=== PATIENT | male | born 1945 | race Caucasian/White ===

== ENCOUNTER 2024-03-02 09:45 | Outpatient (OUT) | payer OTHER, SELFPAY ==
--- NOTE | 2024-03-02 10:00 | CA_ITS ---
Patient Name: ERIC LARA MR#: [id number] : 1945 Exam Date: 03/02/2024 Ordering Doctor: DR CHRISTOPHER SULTANA ECHOCARDIOGRAM REPORT PROCEDURE: CA ECHO DOPPLER COMPLETE INDICATIONS: Pulmonary embolism, PFO COMPARISON: None. DESCRIPTION: COMPLETE ECHOCARDIOGRAM Real-time transthoracic echocardiography with 2D, M-mode, spectral and color flow Doppler performed. QUALITY: Technical quality was good. LEFT VENTRICLE: Normal chamber size. Proximal septal hypertrophy (sigmoid septum). Normal systolic function. LV EF: Normal left ventricular ejection fraction, (>55%). DIASTOLIC: Not adequately assessed due to heart rhythm. ATRIAL SEPTUM: Possible PFO. LEFT ATRIUM: Moderate dilatation. RIGHT ATRIUM: Moderate dilatation. RIGHT VENTRICLE: Normal chamber size. Normal right ventricular systolic function. TRICUSPID VALVE: Normal mobility and thickness. No stenosis with mild regurgitation. No evidence of pulmonary hypertension. RVSP 33 mmHg MITRAL VALVE: Normal mobility and thickness. No evidence of mitral valve stenosis. There is no mitral annular calcification. Mild mitral regurgitation. AORTIC VALVE: Normal trileaflet appearance. No visible sclerosis. Normal leaflet mobility. No evidence of aortic valve stenosis. No aortic regurgitation. AORTIC ROOT: Normal diameter and appearance. Ascending aorta is normal in size. PULMONIC VALVE: Normal thickness and mobility. No stenosis. Trivial regurgitation. PERICARDIUM: No evidence of pericardial effusion. IVC: Collapses with inspirations. IVC is normal in size. PLEURA: CONCLUSION: 1. Normal left ventricular size and systolic function. Estimated LVEF is 55 to 60%. 2. Normal right ventricular size and systolic function. 3. Moderately dilated atria. 4. Mild mitral and tricuspid regurgitation. 5. Normal right-sided pressures. 6. No pericardial effusion. Adult Echocardiography Procedure Report Left Ventricle LVEDD (3.7 - 5.6 cm): 4.64 cm LVESD (2.2 - 4.0 cm): 2.91 cm LVIVS thickness (0.6 - 1.2 cm): 1.57 cm LVPW thickness (0.5 - 1.0 cm): 0.85 cm LVOT Max Gradient: 1.61 mm[Hg] LVOT Area (cm2): 0.64 m/s Peak Velocity (LVOT): 0.64 m/s Mean Velocity (LVOT): 0.43 m/s LVOT Diameter 2.51 cm Left Atrium LA Volume Index (2D A2C): 36.47 ml/m2 Left Atrium Systolic Dimension: 4.83 cm Mitral Valve Mitral Valve E-Wave Peak Velocity: 0.88 m/s Right Ventricle Aorta AO Root Diam: 3.35 cm Ascending Ao Diam: 3.01 cm Aortic Valve AoV Area (Peak Bienvenido): 3.21 cm2, 3.21 cm2 AoV Area (VTI): 3.49 cm2, 3.49 cm2 Peak Velocity(Antegrade Flow): 0.98 m/s Peak Gradient(Antegrade Flow): 3.85 mm[Hg] Mean Velocity(Antegrade Flow): 0.65 m/s Mean Gradient(Antegrade Flow): 1.95 mm[Hg] Velocity Time Integral: 21.99 cm Tricuspid Valve Peak Velocity (Regurgitant Flow): 1.70 m/s, 2.73 m/s, 2.79 m/s Pulmonic Valve Mean Gradient: 2.31 mm[Hg] Mean Velocity: 0.69 m/s Peak Velocity: 1.17 m/s, 1.16 m/s Peak Gradient: 5.35 mm[Hg], 5.52 mm[Hg] Right Atrium Right Atrium Systolic Pressure: 39.91 ml, 39.91 ml Dictated by: Jarad Tinoco M.D. on 03/02/2024 at 11:17 Approved by: Jarad Tinoco M.D. on 03/02/2024 at 11:19
== END 2024-03-02 09:46 | disposition home or self-care (01) ==
LOC: CARD 09:49
PROVIDERS: PCP Family Medicine; Visit Provider Family Medicine
DX: Q21.12 Patent foramen ovale (principal)
CPT/HCPCS: 93306

== ENCOUNTER 2024-06-18 16:36 | Emergency (ER) | payer OTHER, SELFPAY ==
[2024-06-18 16:38] VITALS: BP 168/95; PULSE 80; TEMP 37; O2SAT 97; BMI 21.8
--- NOTE | 2024-06-18 17:00 | XR_ITS ---
The [address] [address] Patient Name: ERIC LARA MRN: [id number] date: 1945 Sex: M Assigned Patient Location: ER Current Patient Location: ED.[facility] Accession/Order Number: [id number] Exam Date: 06/18/2024 17:25 Report Date: 06/18/2024 18:55 At the request of: QUETA COOL Procedure: XR cervical spine w flex/ext EXAM: XR cervical spine w flex/ext HISTORY: The patient is a 79-year-old male, Pain COMPARISON: CT scan of the cervical spine from 03/30/2023. FINDINGS: The prior CT scan demonstrated solid anterior bony fusion across the C5-C6 and C6-C7 disc spaces. On the current lateral views there is satisfactory visualization only through the level of the fused C5-C6 disc. The cervicothoracic junction is not visualized on any of the lateral views. There is no radiographic evidence of fracture or loss of vertebral body height of the visualized vertebrae. The flexion and extension views demonstrate no instability or abnormal motion although the overall range of motion is limited. The oblique views demonstrate multilevel neural foraminal narrowing. XR/XR cervical spine w flex/ext IMPRESSION: As above. Electronically authenticated by: AUGUSTINE OSCAR Date: 06/18/2024 18:55
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
--- OUTSIDE RECORDS SUMMARY | 2024-06-18 17:08 | XMS_ITS | CCD ---
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 [facility] Comment on above: Performed By: #### B NP2 #### [facility] [address] [place] [address] Potassium [Moles/Vol] 3.9 mmol/L Normal 3.5 - 5.3 [facility] Comment on above: Performed By: #### B NP2 #### [facility] [address] [place] [address] Protein [Mass/Vol] 6.2 g/dL Low 6.4 - 8.2 [facility] Comment on above: Performed By: #### B NP2 #### [facility] [address] [place] [address] Sodium [Moles/Vol] 142 mmol/L Normal 136 - 145 [facility] Comment on above: Performed By: #### B NP2 #### [facility] [address] [place] [address] Urea nitrogen [Mass/Vol] 21 mg/dL Normal 6 - 23 [facility] Comment on above: Performed By: #### B NP2 #### [facility] [address] [place] [address] Cardiac echo study Procedure on 04-03-2023 [facility], [address] [place] [address], [place] [address] and TRANSTHORACIC ECHOCARDIOGRAM REPORT Patient Name: ERIC AGARWAL Reading Physician: [id number] Demario Anguiano MD Study Date: 03/31/2023 Referring Physician: KYLEE COTTON MRN/PID: [id number] PCP: Accession/Order#: [id number] Department Location: [facility] Date of : 1945 Fellow: [id number] Syed Stewart MD Gender: M Nurse: Admit Date: 03/31/2023 Other Wood Processing Machine Operator: Susy Valle [facility] Admission Status: Inpatient - STAT Additional Staff: Height: 177.00 cm CC Report [facility] beds at the [facility] Weight: 99.79 kg Study Type: Echocardiogram BSA: 2.17 m2 Blood Pressure: 127 /87 mmHg Diagnosis/ICD: I26.09-Other pulmonary embolism with acute cor pulmonale Indication: Pulmonary Embolism Procedure/CPT: Echo Complete w Full Doppler-[id number] Patient History: Pertinent History: A-Fib. Pulmonary embolism, Dizziness, Acute Respiratory failure, BRODY, shortness of breath, HFpEF. Study Detail: The following Echo studies were performed: 2D, M-Mode, Doppler and color flow. Technically challenging study due to body habitus, prominent lung artifact and poor acoustic windows. Definity used as a contrast agent for endocardial border definition and agitated saline used as a contrast agent for intraseptal flow evaluation. Total contrast used for this procedure was 4.0 mL via IV push. Patient's heart rhythm is atrial fibrillation. PHYSICIAN INTERPRETATION: Left Ventricle: The left ventricular systolic function is normal. There are no regional wall motion abnormalities. The left ventricular cavity size is normal. The interventricular septum is flattened in systole and diastole, consistent with right ventricular pressure and volume overload. Left ventricular diastolic filling was not assessed. Left Atrium: The left atrium is severely dilated. A bubble study using agitated saline was performed. Bubble study is positive. 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 Right Ventricle: The right ventricle is severely enlarged. There is severely reduced right ventricular systolic function. Right Atrium: The right atrium is severely dilated. Aortic Valve: The aortic valve appears structurally normal. There is no evidence of aortic valve regurgitation. The peak instantaneous gradient of the aortic valve is 6.0 mmHg. The mean gradient of the aortic valve is 3.0 mmHg. Mitral Valve: The mitral valve is normal in structure. There is trace mitral valve regurgitation. Tricuspid Valve: The tricuspid valve is structurally normal. There is mild tricuspid regurgitation. The Doppler estimated RVSP is moderately elevated at 52.2 mmHg. Pulmonic Valve: The pulmonic valve is structurally normal. There is trace pulmonic valve regurgitation. Pericardium: There is no pericardial effusion noted. Aorta: The aortic root is normal. The Ao Sinus is 3.30 cm. The Asc Ao is 3.70 cm. Systemic Veins: The inferior vena cava appears to be of normal size. There is less than 50% IVC collapse with inspiration. CONCLUSIONS: 1. Poorly visualized anatomical structures due to suboptimal image quality. 2. Left ventricular systolic function is normal. 3. Right ventricular volume and pressure overload. 4. Severely enlarged right ventricle. 5. There is severely reduced right ventricular systolic function. 6. The left atrium is severely dilated. 7. The right atrium is severely dilated. 8. Moderately elevated right ventricular systolic pressure. 9. A bubble study using agitated saline was performed. Bubble study is positive. 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 QUANTITATIVE DATA SUMMARY: 2D MEASUREMENTS: Normal Ranges: Ao Root d: 3.30 cm (2.0-3.7cm) LAs: 4.50 cm (2.7-4.0cm) IVSd: 1.40 cm (0.6-1.1cm) LVPWd: 1.26 cm (0.6-1.1cm) LVIDd: 4.00 cm (3.9-5.9cm) LVIDs: 2.80 cm LV Mass Index: 89.1 g/m2 LV % FS 30.0 % LA VOLUME: Normal Ranges: LA Vol A4C: 106.8 ml (22+/-6mL/m2) LA Vol Index A4C: 49.3ml/m2 LA Area A4C: 27.0 cm2 LA Major [place] A4C: 5.8 cm LA Vol A4C: 95.1 ml RA VOLUME BY A/L METHOD: Normal Ranges: RA Vol A4C: 130.2 ml (8.3-19.5ml) RA Vol Index A4C: 60.1 ml/m2 RA Area A4C: 31.8 cm2 RA Major [place] A4C: 6.6 cm AORTA MEASUREMENTS: Normal Ranges: Ao Sinus, d: 3.30 cm (2.1-3.5cm) Asc Ao, d: 3.70 cm (2.1-3.4cm) LV DIASTOLIC FUNCTION: Normal Ranges: MV Peak E: 0.43 m/s (0.7-1.2 m/s) MV e' 0.10 m/s (>8.0) MV lateral e' 0.13 m/s MV medial e' 0.07 m/s E/e' Ratio: 4.30 (<8.0) MITRAL VALVE: Normal Ranges: MV DT: 153 msec (150-240msec) AORTIC VALVE: Normal Ranges: AoV Vmax: 1.22 m/s (< (more content not included)... Demario Lackey MD - 04/03/2023 [facility], [address] [place] [address] and TRANSTHORACIC ECHOCARDIOGRAM REPORT Patient Name: ERIC AGARWAL Reading Physician: [id number] Demario Anguiano MD Study Date: 03/31/2023 Referring Physician: KYLEE COTTON MRN/PID: [id number] PCP: Accession/Order#: [id number] Department Location: [facility] Date of : 1945 Fellow: [id number] Syed Stewart MD Gender: M Nurse: Admit Date: 03/31/2023 Other Wood Processing Machine Operator: Susy Valle RDCS Admission Status: Inpatient - STAT Additional Staff: Height: 177.00 cm CC Report to: Count includes the [facility] Weight: 99.79 kg Study Type: Echocardiogram BSA: 2.17 m2 Blood Pressure: 127 /87 mmHg Diagnosis/ICD: I26.09-Other pulmonary embolism with acute cor pulmonale Indication: Pulmonary Embolism Procedure/CPT: Echo Complete w Full Doppler-[id number] Patient History: Pertinent History: A-Fib. Pulmonary embolism, Dizziness, Acute Respiratory failure, BRODY, shortness of breath, HFpEF. Study Detail: The following Echo studies were performed: 2D, M-Mode, Doppler and color flow. Technically challenging study due to body habitus, prominent lung artifact and poor acoustic windows. Definity used as a contrast agent for endocardial border definition and agitated saline used as a contrast agent for intraseptal flow evaluation. Total contrast used for this procedure was 4.0 mL via IV push. Patient's heart rhythm is atrial fibrillation. PHYSICIAN INTERPRETATION: Left Ventricle: The left ventricular systolic function is normal. There are no regional wall motion abnormalities. The left ventricular cavity size is normal. The interventricular septum is flattened in systole and diastole, consistent with right ventricular pressure and volume overload. Left ventricular diastolic filling was not assessed. Left Atrium: The left atrium is severely dilated. A bubble study using agitated saline was performed. Bubble study is positive. 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 Right Ventricle: The right ventricle is severely enlarged. There is severely reduced right ventricular systolic function. Right Atrium: The right atrium is severely dilated. Aortic Valve: The aortic valve appears structurally normal. There is no evidence of aortic valve regurgitation. The peak instantaneous gradient of the aortic valve is 6.0 mmHg. The mean gradient of the aortic valve is 3.0 mmHg. Mitral Valve: The mitral valve is normal in structure. There is trace mitral valve regurgitation. Tricuspid Valve: The tricuspid valve is structurally normal. There is mild tricuspid regurgitation. The Doppler estimated RVSP is moderately elevated at 52.2 mmHg. Pulmonic Valve: The pulmonic valve is structurally normal. There is trace pulmonic valve regurgitation. Pericardium: There is no pericardial effusion noted. Aorta: The aortic root is normal. The Ao Sinus is 3.30 cm. The Asc Ao is 3.70 cm. Systemic Veins: The inferior vena cava appears to be of normal size. There is less than 50% IVC collapse with inspiration. CONCLUSIONS: 1. Poorly visualized anatomical structures due to suboptimal image quality. 2. Left ventricular systolic function is normal. 3. Right ventricular volume and pressure overload. 4. Severely enlarged right ventricle. 5. There is severely reduced right ventricular systolic function. 6. The left atrium is severely dilated. 7. The right atrium is severely dilated. 8. Moderately elevated right ventricular systolic pressure. 9. A bubble study using agitated saline was performed. Bubble study is positive. 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 QUANTITATIVE DATA SUMMARY: 2D MEASUREMENTS: Normal Ranges: Ao Root d: 3.30 cm (2.0-3.7cm) LAs: 4.50 cm (2.7-4.0cm) IVSd: 1.40 cm (0.6-1.1cm) LVPWd: 1.26 cm (0.6-1.1cm) LVIDd: 4.00 cm (3.9-5.9cm) LVIDs: 2.80 cm LV Mass Index: 89.1 g/m2 LV % FS 30.0 % LA VOLUME: Normal Ranges: LA Vol A4C: 106.8 ml (22+/-6mL/m2) LA Vol Index A4C: 49.3ml/m2 LA Area A4C: 27.0 cm2 LA Major [place] A4C: 5.8 cm LA Vol A4C: 95.1 ml RA VOLUME BY A/L METHOD: Normal Ranges: RA Vol A4C: 130.2 ml (8.3-19.5ml) RA Vol Index A4C: 60.1 ml/m2 RA Area A4C: 31.8 cm2 RA Major [place] A4C: 6.6 cm AORTA MEASUREMENTS: Normal Ranges: Ao Sinus, d: 3.30 cm (2.1-3.5cm) Asc Ao, d: 3.70 cm (2.1-3.4cm) LV DIASTOLIC FUNCTION: Normal Ranges: MV Peak E: 0.43 m/s (0.7-1.2 m/s) MV e' 0.10 m/s (>8.0) MV lateral e' 0.13 m/s MV medial e' 0.07 m/s E/e' Ratio: 4.30 (<8.0) MITRAL VALVE: Normal Ranges: MV DT: 153 msec (150-240msec) AORTIC VALVE: Normal Ranges: AoV Vmax: 1.22 m/s (<=1.7m/s) AoV Peak P.0 mmHg (<20mmHg) AoV Mean P.0 mmHg (1.7-11.5mmHg) LVOT Max Bienvenido: 0.73 m/s (<=1.1m/s) AoV VTI: 14.10 cm (18-25cm) LVOT VTI: 9.85 cm LVOT Diameter: 2.00 cm (1.8-2.4cm) AoV Area, VTI: 2.19 cm2 (2.5- (more content not included)... [facility] Work Phone: Cardiac echo study Procedure Ordered By: Demario Anguiano on 04-03-2023 [facility] Work Phone: Clinical Event Noteon 2022 Clinical Event Note Clinical Event: Clinical Event Note: Details pt O2 at rest 95 %: room Air walking without O2 84-86% ..On room air 94 to 95 % on 3 LNC and 93 to 95% walking on 3 LNC B Delia KESSLER Electronic Signatures: Rachele Lin ([facility]) (Signed 03-Apr-2023 16:14) Authored: Clinical Event Note Last Updated: 03-Apr-2023 16:14 by Rachele Lin ([facility]) Normal [facility] Clinical Event Note Clinical Event: Clinical Event Note: Details Patient currently sitting on oxygen doing well Discussed the results of the ambulatory pulse ox and the need for home O2 whether this is his baseline with PFO and a shunt or if this is new given the PE ECHO does not demonstrate sig RV recovery and this needs followed Home AC planned with apixaban - [facility] Follow up with VM as planned for walking pulse ox and repeat ECHO VM will s/o please reconsult for any additional concerns Electronic Signatures: Ophelia Rai) (Signed 03-Apr-2023 12:42) Authored: Clinical Event Note Last Updated: 03-Apr-2023 12:42 by Ophelia Rai) Normal [facility] Clinical Note - Pharmacy v2- Discharge Med Counselingon 04-03-2023 Clinical Note - Pharmacy v2-Discharge Med Counseling Clinical Note - Pharmacy v2: Discharge Meds: Document TopicDischarge Med Counseling Time Required5 - 10 minutes Prescription Labeling Machine Operator Medications Drug Name: mirtazapine 30 mg oral tablet Instructions: 1 tab(s) orally once (at bedtime) Drug Name: apixaban 5 mg oral tablet Instructions: 2 tab(s) orally every 12 hours Medications DeliveredAll above Medications Delivered Topatient Delivery Date/[id number] 16:38 Medications ReviewedAll above Education TopicADR counseling; dosage, frequency, storage; medication indication; medication interactions; missed dose explanation; refills Learnerpatient Barriers to Learningnone Methodverbal Outcome Evaluation2=meets goals/outcomes Allergy: Allergies Summary No Known Allergies Electronic Signatures: Rene Mortensen ([facility]) (Signed 03-Apr-2023 18:10) Co-Signer: Discharge Meds, Allergy Rin Triplett (PHARM [employer]UD) (Signed 03-Apr-2023 17:38) Authored: Discharge Meds, Allergy Last Updated: 03-Apr-2023 18:10 by Rene Mortensen ([facility]) Normal [facility] Comprehensive metabolic 2000 panelon 04-03-2023 Albumin BCP dye [Mass/Vol] 3.6 g/dL 3.4 - 5.0 g/dL [facility] ALP [Catalytic activity/Vol] 70 U/L 33 - 136 U/L [facility] ALT With P-5'-P [Catalytic activity/Vol] 22 U/L 10 - 52 U/L [facility] Comment on above: Patients treated wit h Sulfasalazine may generate falsely decreased results for ALT. Anion gap [Moles/Vol] 15 mmol/L 10 - 2 0 mmol/L [facility] AST With P-5'-P [Catalytic activity/Vol] 22 U/L 9 - 39 U/L [facility] Bilirubin [Mass/Vol] 0.8 mg/dL 0.0 - 1 .2 mg/dL [facility] Calcium [Mass/Vol] 8.9 mg/dL 8.6 - 10. 6 mg/dL [facility] Chloride [Moles/Vol] 106 mmol/L 98 - 10 7 mmol/L [facility] CO2 [Moles/Vol] 25 mmol/L 21 - 32 mmol/L [facility] Creatine [Mass/Vol] 0.95 mg/dL 0.50 - 1 .30 mg/dL [facility] GFR MALE 82 - PINF [facility] Comment on above: CALCULATIONS OF JACEY MATED GFR ARE PERFORMED USING THE 2020 CKD-EPI STUDY REFIT EQUATION WITHOUT THE RACE VARIABLE FOR THE IDMS-TRACEABLE CREATININE METHODS. https://jasn.asnjournals.org/content//ASN.61067 24501 Glucose [Mass/Vol] 110 mg/dL High 74 - 99 mg/dL [facility] Interpretation and review of laboratory results Abnormal [facility] Potassium [Moles/Vol] 3.9 mmol/L 3.5 - 5.3 mmol/L [facility] Protein [Mass/Vol] 6.2 g/dL Low 6.4 - 8.2 g/dL [facility] Sodium [Moles/Vol] 142 mmol/L 136 - 145 mmol/L [facility] Urea nitrogen [Mass/Vol] 21 mg/dL 6 - 23 mg/dL [facility] MAGNESIUMon 04-03-2023 Magnesium [Mass/Vol] 2.35 mg/dL Normal 1.60 - 2.40 [facility] Comment on above: Performed By: #### M G #### [facility] [address] [place] [address] Magnesiumon 04-03-2023 Magnesium [Mass/Vol] 2.35 mg/dL 1.60 - 2.40 mg/dL [facility] No Panel Informationon 04-03 [facility] Order Reconciliationon 04-03 Order Reconciliation Page 1 Discharge Reconciliation Document Reconciliation Type: Discharge requested on behalf of Jame Hernandez (Resident) done by Jame Hernandez (Resident)) Discharge - Reconciliation: 03-Apr-2023 11:11 by: Jame Hernandez ( (Resident)) Current OrdersDateHOME MEDICATIONS AT DISCHARGE DateReconciliation Comment/ Additional Information Apixaban Tablet (ELIQUIS)DOSE = 10 mg Oral Every 12 HoursClinician Notes: Please ensure heparin drip is stopped prior to starting Apixaban at 10pm 02-Apr-2023 13:36 apixaban 5 mg oral tablet 2 tab(s) orally every 12 hours, , MEDS TO BEDS, ADOD 04/03/2023, Location [place] 5060 03-Apr-2023 11:09 Prescription is created for apixaban 5 mg oral tablet Mirtazapine Tablet (REMERON)DOSE = 30 mg Oral At Bedtime 31-Mar-2023 13:38 mirtazapine 30 mg oral tablet 1 tab(s) orally once (at bedtime), , MEDS TO BEDS, ADOD 04/03/2023, Location [place] 5060 03-Apr-2023 11:08 Prescription is created for mirtazapine 30 mg oral tablet Perflutren Lipid Microsphere (Activated) 1.3 mL / NaCL 0.9% T.V. 10 mL Injectable DOSE = 0.5 mL IntraVenous Push OnceCa.005 mL/Kg/DOSE x 100 Kg = 0.5 mL/Dose (Daily Total is 0.5 mL)Clinician Notes: 1. Dilute 1.3 mL of activated DEFINITY wit 31-Mar-2023 17:55 Perflutren Lipid Microsphere (Activated) 1.3 mL / NaCL 0.9% T.V. 10 mL Injectable is not required Perflutren Lipid Microsphere (Activated) 1.3 mL / NaCL 0.9% T.V. 10 mL Injectable DOSE = 0.5 mL IntraVenous Push OnceClinician Notes: 1. Dilute 1.3 mL of activated DEFINITY with 8.7 mL of normal saline in a 10 mL syringe.2. Inject 0.5 mL of diluted 31-Mar-2023 10:10 Perflutren Lipid Microsphere (Activated) 1.3 mL / NaCL 0.9% T.V. 10 mL Injectable is not required All Active Home Medications at time of Discharge Reconciliation: 03-Apr-2023 11:11 apixaban 5 mg oral tablet 2 tab(s) orally every 12 hours, , MEDS TO BEDS, ADOD 04/03/2023, Location [place] 5060 mirtazapine 30 mg oral tablet 1 tab(s) orally once (at bedtime), , MEDS TO BEDS, ADOD 04/03/2023, Location [place] 5060 Normal [facility] Cardiac echo study Procedure on 04-02-2023 [facility], [address] [place] [address] and TRANSTHORACIC ECHOCARDIOGRAM REPORT Patient Name: ERIC AGARWAL Reading Physician: [id number] Jose C Carbajal MD Study Date: 04/02/2023 Referring DENISE NORIEGA Physician: MRN/PID: [id number] PCP: Accession/Order#: [id number] [facility] Location: Invasive Date of : 1945 Fellow: Gender: M Nurse: Shraddha David RN Admit Date: 03/31/2023 Other Wood Processing Machine Operator: Geneva Lao [facility] Admission Status: Inpatient - Additional Staff: Routine Height: 180.34 cm CC Report to: Weight: 99.79 kg Study Type: Echocardiogram BSA: 2.20 m2 Blood Pressure: 101 /64 mmHg Diagnosis/ICD: Q21.12-Patent foramen ovale Indication: PFO Procedure/CPT: Echo Complete w Full Doppler-[id number] Patient History: Drug Allergies: None Pertinent History: Pulmonary embolism s/p embolectomy 03/31/23, BRODY, A-fib, MDD, shortness of breath and dizziness. Study Detail: The following Echo studies were performed: 2D, M-Mode, Doppler and color flow. Technically challenging study due to patient lying in supine position and prominent lung artifact. Agitated saline used as a contrast agent for intraseptal flow evaluation and Definity used as a contrast agent for endocardial border definition. Total contrast used for this procedure was 2 mL via IV push. Patient's heart rhythm is atrial fibrillation and with premature ventricular contractions. The patient was awake. PHYSICIAN INTERPRETATION: Left Ventricle: The left ventricular systolic function is normal, with an estimated ejection fraction of 60%. There are no regional wall motion abnormalities. The left ventricular cavity size is normal. Left ventricular diastolic filling was indeterminate. Left Atrium: The left atrium is mildly dilated. A bubble study using agitated saline was performed. 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 Right Ventricle: The right ventricle is moderately enlarged. There is reduced right ventricular systolic function. Faria's sign is present, suggestive of pulmonary embolism. Right Atrium: The right atrium is moderately dilated. Aortic Valve: The aortic valve is trileaflet. There is no evidence of aortic valve regurgitation. The peak instantaneous gradient of the aortic valve is 5.2 mmHg. Mitral Valve: The mitral valve is normal in structure. There is no evidence of mitral valve regurgitation. Tricuspid Valve: The tricuspid valve is structurally normal. There is trace to mild tricuspid regurgitation. The Doppler estimated RVSP is mildly elevated at 43.4 mmHg. Pulmonic Valve: The pulmonic valve is not well visualized. The pulmonic valve regurgitation was not well visualized. Pericardium: There is a trivial to small pericardial effusion. Aorta: The aortic root is normal. There is upper limits of normal dilatation of the ascending aorta. Systemic Veins: The inferior vena cava appears to be of normal size. There is less than 50% IVC collapse with inspiration. In comparison to the previous echocardiogram(s): Compared with study from 03/31/2023, there is a one grade improvement in RV size and a decrease in RV systolic pressure (was 52 mmHg). CONCLUSIONS: 1. Left ventricular systolic function is normal with a 60% estimated ejection fraction. 2. Poorly visualized anatomical structures due to suboptimal image quality. 3. Faria's sign is present, suggestive of pulmonary embolism. 4. Moderately enlarged right ventricle. 5. There is reduced right ventricular systolic function. 6. The right atrium is moderately dilated. 7. Mildly elevated RVSP. 8. A bubble study using agitated saline was performed. 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 QUANTITATIVE DATA SUMMARY: 2D MEASUREMENTS: Normal Ranges: LAs: 4.35 cm (2.7-4.0cm) RVIDd: 4.04 cm (0.9-3.6cm) IVSd: 1.29 cm (0.6-1.1cm) LVPWd: 1.22 cm (0.6-1.1cm) LVIDd: 4.25 cm (3.9-5.9cm) LVIDs: 3.01 cm LV Mass Index: 88.2 g/m2 LV % FS 29.1 % LA VOLUME: Normal Ranges: LA Vol A4C: 90.0 ml (22+/-6mL/m2) LA Vol A2C: 81.6 ml LA Vol BP: 85.7 ml LA Vol Index A4C: 41.0ml/m2 LA Vol Index A2C: 37.2 ml/m2 LA Vol Index BP: 39.0 ml/m2 LA Area A4C: 25.2 cm2 LA Area A2C: 24.0 cm2 LA Major [place] A4C: 6.0 cm LA Major [place] A2C: 6.0 cm RA VOLUME BY A/L METHOD: Normal Ranges: RA Vol A4C: 93.8 ml (8.3-19.5ml) RA Vol Index A4C: 42.7 ml/m2 RA Area A4C: 25.3 cm2 RA Major [place] A4C: 5.8 cm AORTA MEASUREMENTS: Normal Ranges: AoV Lizeth,s: 3.40 cm (1.4-2.6cm) Asc Ao, d: 3.40 cm (2.1-3.4cm) AORTIC VALVE: Naa (more content not included)... Jose C Page MD - 04/02/2023 [facility], [address] [place] [address] and TRANSTHORACIC ECHOCARDIOGRAM REPORT Patient Name: ERIC AGARWAL Reading Physician: [id number] Jose C Carbajal MD Study Date: 04/02/2023 Referring DENISE NORIEGA Physician: MRN/PID: [id number] PCP: Accession/Order#: [id number] [facility] Non Location: Invasive Date of : 1945 Fellow: Gender: M Nurse: Shraddha David RN Admit Date: 03/31/2023 Other Wood Processing Machine Operator: DARREN Fish RDCS Admission Status: Inpatient - Additional Staff: Routine Height: 180.34 cm CC Report to: Weight: 99.79 kg Study Type: Echocardiogram BSA: 2.20 m2 Blood Pressure: 101 /64 mmHg Diagnosis/ICD: Q21.12-Patent foramen ovale Indication: PFO Procedure/CPT: Echo Complete w Full Doppler-[id number] Patient History: Drug Allergies: None Pertinent History: Pulmonary embolism s/p embolectomy 03/31/23, BRODY, A-fib, MDD, shortness of breath and dizziness. Study Detail: The following Echo studies were performed: 2D, M-Mode, Doppler and color flow. Technically challenging study due to patient lying in supine position and prominent lung artifact. Agitated saline used as a contrast agent for intraseptal flow evaluation and Definity used as a contrast agent for endocardial border definition. Total contrast used for this procedure was 2 mL via IV push. Patient's heart rhythm is atrial fibrillation and with premature ventricular contractions. The patient was awake. PHYSICIAN INTERPRETATION: Left Ventricle: The left ventricular systolic function is normal, with an estimated ejection fraction of 60%. There are no regional wall motion abnormalities. The left ventricular cavity size is normal. Left ventricular diastolic filling was indeterminate. Left Atrium: The left atrium is mildly dilated. A bubble study using agitated saline was performed. 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 Right Ventricle: The right ventricle is moderately enlarged. There is reduced right ventricular systolic function. Faria's sign is present, suggestive of pulmonary embolism. Right Atrium: The right atrium is moderately dilated. Aortic Valve: The aortic valve is trileaflet. There is no evidence of aortic valve regurgitation. The peak instantaneous gradient of the aortic valve is 5.2 mmHg. Mitral Valve: The mitral valve is normal in structure. There is no evidence of mitral valve regurgitation. Tricuspid Valve: The tricuspid valve is structurally normal. There is trace to mild tricuspid regurgitation. The Doppler estimated RVSP is mildly elevated at 43.4 mmHg. Pulmonic Valve: The pulmonic valve is not well visualized. The pulmonic valve regurgitation was not well visualized. Pericardium: There is a trivial to small pericardial effusion. Aorta: The aortic root is normal. There is upper limits of normal dilatation of the ascending aorta. Systemic Veins: The inferior vena cava appears to be of normal size. There is less than 50% IVC collapse with inspiration. In comparison to the previous echocardiogram(s): Compared with study from 03/31/2023, there is a one grade improvement in RV size and a decrease in RV systolic pressure (was 52 mmHg). CONCLUSIONS: 1. Left ventricular systolic function is normal with a 60% estimated ejection fraction. 2. Poorly visualized anatomical structures due to suboptimal image quality. 3. Faria's sign is present, suggestive of pulmonary embolism. 4. Moderately enlarged right ventricle. 5. There is reduced right ventricular systolic function. 6. The right atrium is moderately dilated. 7. Mildly elevated RVSP. 8. A bubble study using agitated saline was performed. 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 QUANTITATIVE DATA SUMMARY: 2D MEASUREMENTS: Normal Ranges: LAs: 4.35 cm (2.7-4.0cm) RVIDd: 4.04 cm (0.9-3.6cm) IVSd: 1.29 cm (0.6-1.1cm) LVPWd: 1.22 cm (0.6-1.1cm) LVIDd: 4.25 cm (3.9-5.9cm) LVIDs: 3.01 cm LV Mass Index: 88.2 g/m2 LV % FS 29.1 % LA VOLUME: Normal Ranges: LA Vol A4C: 90.0 ml (22+/-6mL/m2) LA Vol A2C: 81.6 ml LA Vol BP: 85.7 ml LA Vol Index A4C: 41.0ml/m2 LA Vol Index A2C: 37.2 ml/m2 LA Vol Index BP: 39.0 ml/m2 LA Area A4C: 25.2 cm2 LA Area A2C: 24.0 cm2 LA Major [place] A4C: 6.0 cm LA Major [place] A2C: 6.0 cm RA VOLUME BY A/L METHOD: Normal Ranges: RA Vol A4C: 93.8 ml (8.3-19.5ml) RA Vol Index A4C: 42.7 ml/m2 RA Area A4C: 25.3 cm2 RA Major [place] A4C: 5.8 cm AORTA MEASUREMENTS: Normal Ranges: AoV Lizeth,s: 3.40 cm (1.4-2.6cm) Asc Ao, d: 3.40 cm (2.1-3.4cm) AORTIC VALVE: Normal Ranges: AoV Vmax: 1.14 m/s (<=1.7m/s) AoV Peak P.2 mmHg (<20mmHg) LVOT Max Bienvenido: 0.83 m/s (<=1.1m/s) LVOT VTI: 13.17 cm LVOT Diameter: 2.25 cm (1.8-2.4cm) AoV Area,Vmax: 2.89 cm2 (2.5-4.5cm2) RIGHT VENTRICLE: RV Basal 4.30 cm RV Mid 4.10 cm RV Ma (more content not included)... [facility] Work Phone: Cardiac echo study Procedure Ordered By: Jose C Carbajal on 04-02-2023 [facility] Work Phone: Clinical Event Note-Walking pulse oxon 04-02-2023 Clinical Event Note-Walking pulse ox Clinical Event: Clinical Event Note: TopicWalking pulse ox Details Walking pulse ox was performed while patient was on RA. Patient's oxygen saturation fluxated between 84-94%. Patient placed back on 3L following walking pulse ox test. Pulse ox sating at 95% while on oxygen. -Natali Dunbar RN Electronic Signatures: Natali Dunbar ([facility]CO) (Signed 02-Apr-2023 11:29) Authored: Clinical Event Note Last Updated: 02-Apr-2023 11:29 by Natali Dunbar (CHECO) Normal [facility] Daily Progress Note-Cardiolo gyon 04-02-2023 Daily Progress Note-Cardiology Service: Cardiology Subjective Data: ERIC AGARWAL is a 78 year old Male who is Hospital Day # 3. Patient was seen today, he look comfortable and has no active complaint. He is not oxygen and his O2 sat is 95%. Overnight Events: Patient had an uneventful night. Additional Information: Patient was seen today, he look comfortable and has no active complaint. He is not oxygen and his O2 sat is 95% Objective Data: Objective Information: T PRBPMAPSpO2 [id number]/[id number]% Date/Time04/02 5: 5: 5: 5: 12: 5:05 Range(36.2C - 36.6C ) (78 - 104 ) (15 - 25 ) (100 - 130 )/ (61 - 82 ) (75 - 94 ) (87% - 99% ) As of 01-Apr-2023 12:35:00, patient is on 4 L/min of oxygen via nasal cannula. Pain reported at 04/01 22:00: 0 = None Weights 04/02 5:05: Weight in kg (Weight (kg)) 97.8 04/02 5:05: Weight in lbs ((lbs)) 215.6 Physical Exam Narrative: Physical Exam: Physical Exam Constitutional: lying in bed, appears slightly tachypneic but NAD Eyes: EOMI, clear sclera ENMT: moist mucous membranes Head/Neck: no appreciable JVD Respiratory/Thorax: CTAB, increased WOB on 4L NS Cardiovascular: HS irregularly irregular, no murmur Gastrointestinal: soft, NT, ND, +BS, no appreciable HSM Extremities: LLE asymmetrically swollen compared to RLE. No edema Neurological: AOx4, pleasant, conversational, following commands, Gr 5/5 power in all extremities Skin: warm and dry Psych: Appropriate mood and affect Medication: Medications: Continuous Medications ------ 1. Heparin 25,000 units/ D5W 250 mL Infusion..: 1800 units/hr IntraVenous Scheduled Medications ------ 1. Heparin (Repeat Bolus) Injectable: 6000 unit(s) IntraVenous Push Every 4 Hours 2. Mirtazapine: 30 mg Oral At Bedtime PRN Medications ------ No PRN medications are active Conditional Medication Orders ------ 1. Perflutren Lipid Microsphere (Activated) 1.3 mL / NaCL 0.9% T.V. 10 mL Injectable: 0.5 mL IntraVenous Push Once 2. Perflutren Lipid Microsphere (Activated) 1.3 mL / NaCL 0.9% T.V. 10 mL Injectable: 0.5 mL IntraVenous Push Once 3. Perflutren Lipid Microsphere (Activated) 1.3 mL / NaCL 0.9% T.V. 10 mL Injectable: 0.5 mL IntraVenous Push Once Recent Lab Results: Results: CBC: 04/01/2023 04:11 \ Hgb / \ 11.9 L / WBC Plt 12.7 H 196 / Hct \ / 35.0 L \ RBC: 3.82 L MCV: 92 RFP: 04/01/2023 04:11 NA+ Cl- BUN / 142 109 H 28 H / ------ Glucose - 110 H K+ HCO3- Creat \ 3.8 25 1.18 \ Calcium : 7.3 LAnion Gap : 12 Albumin : 2.9 L Phos : 2.9 Coagulation: 04/01/2023 04:11 PT / / -------< INR < PTT\ \ Heparin Assay: 0.6 I have reviewed these laboratory results: Beta 2 Glycoprotein Ab 01-Apr-2023 09:14:00 ResultValue Nnso-8-Lpnuiplaqiwf IgG Antibody <1.4 Uiuc-1-Essiswemgzuj IgA Antibody 1.0 Szpz-2-Uoiebrrdknqq IgM Antibody 4.4 Anticardiolipin Ab 01-Apr-2023 09:14:00 ResultValue Anticardiolipin IgG, Serum <1.6 Anticardiolipin IgA, Serum 1.3 Anticardiolipin IgM, Serum 3.3 Brain Natriuretic Peptide Trending View [id number] 09:14:00 31-Mar-2023 11:05:00 Brain Natriuretic Widlazl686 H 697 H Renal Function Panel Trending View [id number]-[id number] 04:11:00 31-Mar-2023 11:05:00 Glucose, Sfjmp469 H 108 H NA142 142 K3.8 4.7 CL109 H 105 Bicarbonate, Serum25 26 Anion Gap, Serum12 16 BUN28 H 37 H CREAT1.18 1.29 GFR Male63 57 A Calcium, Serum7.3 L 9.2 Phosphorus, Serum2.9 4.0 ALB2.9 L 3.8 Complete Blood Count Trending View [id number]-Oki-8039 04:11:00 31-Mar-2023 11:05:00 White Blood Cell Count12.7 H 14.7 H Nucleated Erythrocyte Count0.0 0.0 Red Blood Cell Count3.82 L 4.57 HGB11.9 L 14.2 HCT35.0 L 42.1 MCV92 92 MCHC34.0 33.7 HAG556 216 RDW-CV13.2 13.1 Troponin I, High Sensitivity Trending View [id number]-Vvq-7331 04:11:00 31-Mar-2023 11:05:00 Troponin I, High Rcvluflnjef33 H 212 H Heparin assay, UFH 01-Apr-2023 04:11:00 ResultValue Heparin assay, UFH 0.6 Coagulation Screen 31-Mar-2023 11:05:00 ResultValue Prothrombin Time, Plasma 13.5 H International Normalized Ratio, Plasma 1.2 H Activated Partial Thromboplastin Time 88 H Magnesium, Serum 31-Mar-2023 11:05:00 ResultValue Magnesium, Serum 2.38 Radiology Results: Results: I have reviewed this radiology result: Conclusion: CONCLUSIONS: 1. Extirpation of acute/subacute thrombus via Inari. 2. Small residual L lower lobe c/w component of chronic clot as well (despite use of T24). 3. Follow up in Endovascular and VM clinics. 4. Patient was enrolled in [facility]. _ (more content not included)... Normal [facility] Daily Progress Note-Vascular Medicineon 04-02-2023 Daily Progress Note-Vascular Medicine Consult Type: subsequent visit/care Service: Vascular Medicine Subjective Data: ERIC AGARWAL is a 78 year old Male who is Hospital Day # 3. Overnight Events: Patient had an uneventful night. Additional Information: Patient denies bleeding, feeling much better and now on room air from 4L NC yesterday. ECHO THIS MORNING AND BACK ON O2 BRIEFLY Objective Data: Objective Information: T PRBPMAPSpO2 [id number]% Date/Time04/02 8: 8: 8:109 8: 12: 8:10 Range(36.2C - 36.6C ) (78 - 104 ) (15 - 25 ) (100 - 130 )/ (61 - 82 ) (75 - 94 ) (87% - 99% ) As of 01-Apr-2023 12:35:00, patient is on 4 L/min of oxygen via room air. Pain reported at 04/02 8:02: 0 = None Physical Exam by System: Constitutional: Well developed, awake/alert/oriented x3, no distress, alert and cooperative AGREE Respiratory/Thorax: Patent airways, CTAB, normal breath sounds with good chest expansion, thorax symmetric AGREE TACHYPNEIC WITH MOVING IN BED Cardiovascular: Irregular HR due to afib AGREE Extremities: NO EDEMA, NORMAL TONE PHYLLIS X4 Psychological: Appropriate mood and behavior Medication: Medications: Continuous Medications ------ 1. Heparin 25,000 units/ D5W 250 mL Infusion..: 1800 units/hr IntraVenous Scheduled Medications ------ 1. Heparin (Repeat Bolus) Injectable: 6000 unit(s) IntraVenous Push Every 4 Hours 2. Mirtazapine: 30 mg Oral At Bedtime PRN Medications ------ No PRN medications are active Conditional Medication Orders ------ 1. Perflutren Lipid Microsphere (Activated) 1.3 mL / NaCL 0.9% T.V. 10 mL Injectable: 0.5 mL IntraVenous Push Once 2. Perflutren Lipid Microsphere (Activated) 1.3 mL / NaCL 0.9% T.V. 10 mL Injectable: 0.5 mL IntraVenous Push Once Recent Lab Results: Results: Coagulation: 04/02/2023 07:44 PT / / -------< INR < PTT\ \ Heparin Assay: 0.5 I have reviewed these laboratory results: Beta 2 Glycoprotein Ab 01-Apr-2023 09:14:00 ResultValue Zktt-3-Kirfvegotawe IgG Antibody <1.4 Iipu-5-Illtrnhzivjf IgA Antibody 1.0 Bagl-0-Bazwowwzmswe IgM Antibody 4.4 Anticardiolipin Ab 01-Apr-2023 09:14:00 ResultValue Anticardiolipin IgG, Serum <1.6 Anticardiolipin IgA, Serum 1.3 Anticardiolipin IgM, Serum 3.3 Lupus Anticoagulant(DRVVT+SCT) w/Interp. 01-Apr-2023 09:14:00 ResultValue DRVVT Screen 0.98 DRVVT Confirmation 1.05 DRVVT Test Ratio 0.94 SCT Screen 0.78 SCT Confirm 1.27 SCT Test Ratio 0.61 LA Interpretation SEE BELOW No evidence of lupus anticoagulant in these assays (DRVVT and Silica Clotting Time (SCT)). Assay interferences may occur in the presence of factor deficiency/inhibitor and/or anticoagulants. For patients on anti-Vitamin K therapy, Brain Natriuretic Peptide 01-Apr-2023 09:14:00 ResultValue Brain Natriuretic Peptide 314 H Troponin I, High Sensitivity 01-Apr-2023 04:11:00 ResultValue Troponin I, High Sensitivity 95 H Radiology Results: Results: Conclusion: CONCLUSIONS: 1. Left ventricular systolic function is normal with a 60% estimatedejection fraction. 2. Poorly visualized anatomical structures due to suboptimal image quality. 3. Faria's sign is present, suggestive of pulmonary embolism. 4. Moderately enlarged right ventricle. 5. There is reduced right ventricular systolic function. 6. The right atrium is moderately dilated. 7. Mildly elevated RVSP. 8. A bubble study using agitated saline was performed. 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 QUANTITATIVE DATA SUMMARY: 2D MEASUREMENTS: Normal Ranges: LAs: 4.35 cm (2.7-4.0cm) RVIDd: 4.04 cm (0.9-3.6cm) IVSd: 1.29 cm (0.6-1.1cm) LVPWd: 1.22 cm (0.6-1.1cm) LVIDd: 4.25 cm (3.9-5.9cm) LVIDs: 3.01 cm LV Mass Index: 88.2 g/m2 LV % FS29.1 % LA VOLUME: Normal Ranges: LA Vol A4C: 90.0 ml (22+/-6mL/m2) LA Vol A2C: 81.6 ml LA Vol BP: 85.7 ml LA Vol Index A4C: 41.0ml/m2 LA Vol Index A2C: 37.2 ml/m2 LA Vol Index BP: 39.0 ml/m2 LA Area A4C: 25.2 cm2 LA Area A2C: 24.0 cm2 LA Major Od[place] A4C: 6.0 cm LA Major [place] A2C: 6.0 cm RA VOLUME BY A/L METHOD: Normal Ranges: RA Vol A4C: 93.8 ml (8.3-19.5ml) RA Vol Index A4C: 42.7 ml/m2 RA Area A4C: 25.3 cm2 RA Major Od[place] A4C: 5.8 cm AORTA MEASUREMENTS: Normal Ranges: AoV Lizeth,s: 3.40 cm (1.4-2.6cm) Asc Ao, d: 3.40 cm (2.1-3.4cm) AORTIC VALVE: Normal Ranges: AoV Vmax: 1.14 m/s (<=1.7m/s) AoV Peak P.2 mmHg (<20mmHg) LVOT Max Bienvenido: 0.83 m/s (<=1.1m/s) LVOT VTI: 13.17 cm LVOT Diameter: 2.25 cm (1.8-2.4cm) AoV Area,Vmax: 2.89 cm2 (2.5-4.5cm2) RIGHT VENTRICLE: RV Basal 4.30 cm RV Mid 4.10 cm RV Major 7.0 cm RV s' 0.08 m/s TRICUSPID VALVE/RVSP: Normal Ranges: Peak TRVelocity: 2.98 m/s RV Syst Pressure: 43.4 mmHg (more content not included)... Normal [facility] Echocardiogramon 04-02-2023 Echocardiography [facility], [address] [place] [address] and TRANSTHORACIC ECHOCARDIOGRAM REPORT Patient Name: ERIC Villa Physician: [id number] Jose C Carbajal MD Study Date: 04/02/2023 Referring DENISE NORIEGA Physician: MRN/PID: [id number] PCP: Accession/Order#: [id number] [facility] HHVI Non Location: Invasive Date of : 1945 Fellow: Gender: M Nurse: Shraddha David RN Admit Date: 03/31/2023 Other Wood Processing Machine Operator: DARREN Fish RDCS Admission Status: Inpatient - Additional Staff: Routine Height: 180.34 cm CC Report to: Weight: 99.79 kg Study Type: Echocardiogram BSA: 2.20 m2 Blood Pressure: 101 /64 mmHg Diagnosis/ICD: Q21.12-Patent foramen ovale Indication: PFO Procedure/CPT: Echo Complete w Full Doppler-[id number] Patient History: Drug Allergies: None Pertinent History: Pulmonary embolism s/p embolectomy 03/31/23, BRODY, A-fib, MDD, shortness of breath and dizziness. Study Detail: The following Echo studies were performed: 2D, M-Mode, Doppler and color flow. Technically challenging study due to patient lying in supine position and prominent lung artifact. Agitated saline used as a contrast agent for intraseptal flow evaluation and Definity used as a contrast agent for endocardial border definition. Total contrast used for this procedure was 2 mL via IV push. Patient's heart rhythm is atrial fibrillation and with premature ventricular contractions. The patient was awake. PHYSICIAN INTERPRETATION: Left Ventricle: The left ventricular systolic function is normal, with an estimated ejection fraction of 60%. There are no regional wall motion abnormalities. The left ventricular cavity size is normal. Left ventricular diastolic filling was indeterminate. Left Atrium: The left atrium is mildly dilated. A bubble study using agitated saline was performed. 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 Right Ventricle: The right ventricle is moderately enlarged. There is reduced right ventricular systolic function. Faria's sign is present, suggestive of pulmonary embolism. Right Atrium: The right atrium is moderately dilated. Aortic Valve: The aortic valve is trileaflet. There is no evidence of aortic valve regurgitation. The peak instantaneous gradient of the aortic valve is 5.2 mmHg. Mitral Valve: The mitral valve is normal in structure. There is no evidence of mitral valve regurgitation. Tricuspid Valve: The tricuspid valve is structurally normal. There is trace to mild tricuspid regurgitation. The Doppler estimated RVSP is mildly elevated at 43.4 mmHg. Pulmonic Valve: The pulmonic valve is not well visualized. The pulmonic valve regurgitation was not well visualized. Pericardium: There is a trivial to small pericardial effusion. Aorta: The aortic root is normal. There is upper limits of normal dilatation of the ascending aorta. Systemic Veins: The inferior vena cava appears to be of normal size. There is less than 50% IVC collapse with inspiration. In comparison to the previous echocardiogram(s): Compared with study from 03/31/2023, there is a one grade improvement in RV size and a decrease in RV systolic pressure (was 52 mmHg). CONCLUSIONS: 1. Left ventricular systolic function is normal with a 60% estimated ejection fraction. 2. Poorly visualized anatomical structures due to suboptimal image quality. 3. Faria's sign is present, suggestive of pulmonary embolism. 4. Moderately enlarged right ventricle. 5. There is reduced right ventricular systolic function. 6. The right atrium is moderately dilated. 7. Mildly elevated RVSP. 8. A bubble study using agitated saline was performed. 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 QUANTITATIVE DATA SUMMARY: 2D MEASUREMENTS: Normal Ranges: LAs: 4.35 cm (2.7-4.0cm) RVIDd: 4.04 cm (0.9-3.6cm) IVSd: 1.29 cm (0.6-1.1cm) LVPWd: 1.22 cm (0.6-1.1cm) LVIDd: 4.25 cm (3.9-5.9cm) LVIDs: 3.01 cm LV Mass Index: 88.2 g/m2 LV % FS 29.1 % LA VOLUME: Normal Ranges: LA Vol A4C: 90.0 ml (22+/-6mL/m2) LA Vol A2C: 81.6 ml LA Vol BP: 85.7 ml LA Vol Index A4C: 41.0ml/m2 LA Vol Index A2C: 37.2 ml/m2 LA Vol Index BP: 39.0 ml/m2 LA Area A4C: 25.2 cm2 LA Area A2C: 24.0 cm2 LA Major Odessa A4C: 6.0 cm LA Major [place] A2C: 6.0 cm RA VOLUME BY A/L METHOD: Normal Ranges: RA Vol A4C: 93.8 ml (8.3-19.5ml) RA Vol Index A4C: 42.7 ml/m2 RA Area A4C: 25.3 cm2 RA Major Od[place] A4C: 5.8 cm AORTA MEASUREMENTS: Normal Ranges: AoV Lizeth,s: 3.40 cm (1.4-2.6cm) Asc Ao, d: 3.40 cm (2.1-3.4cm) AORTIC VALVE: Normal Ranges: AoV Vmax: 1.14 m/s (<=1.7m/s) AoV Peak P.2 mmHg (<20mmHg) LVOT Max Bienvenido: 0.83 m/s (<=1.1m/s) LVOT VTI: 13.17 cm LVOT Diameter: 2.25 cm (1.8-2.4cm) AoV Area,Vmax: 2.89 cm2 (2.5-4.5cm2) RIGHT VENTRICLE: RV Basal 4.30 cm RV Mid 4.10 cm RV Major 7.0 cm RV s' 0.08 m/s TRICUSPID VALVE/RVSP: Normal Ranges: Peak TR Velocity: 2.98 m/s RV Syst Press (more content not included)... Normal [facility] HEPARIN ASSAY,UFHon 04-02-20 23 HEPARIN ASSAY,UFH 0.5 IU/mL Normal [facility] Comment on above: Result Comment: The therapeutic reference range for UFH may be either 0.3-0.6 IU/mL or 0.3-0.7 IU/mL based on the clinical setting for anticoagulant therapy and the associated nomogram used. For heparin dosing guidelines based on clinical scenario and Heparin Assay results, please refer to local Pharmacy and the [facility] Guidelines for Anticoagulation therapy available on the [facility] intranet at: [email or web address] Performed By: #### B NP2 #### [facility] [address] [place] [address] Heparin Assayon 04-02-2023 Heparin unfractionated Chromogenic method Qn (PPP) 0.5 IU/mL [facility] Comment on above: The therapeutic refe rence range for UFH may be either 0.3-0.6 IU/mL or 0.3-0.7 IU/mL based on the clinical setting for anticoagulant therapy and the associated nomogram used. For heparin dosing guidelines based on clinical scenario and Heparin Assay results, please refer to local Pharmacy and the [facility] Guidelines for Anticoagulation therapy available on the [facility] intranet at: [email or web address] Heparin unfractionated Chrom ogenic method Qn (PPP)on 04-02-2023 [facility] LUPUS ANTICOAG. WITH INTERPR ETATION[BRAVO]on 04-02-2023 LA INTERPRETATION SEE BELOW Normal [facility] Comment on above: Result Comment: No e vidence of lupus anticoagulant in these assays (DRVVT and Silica Clotting Time (SCT)). Assay interferences may occur in the presence of factor deficiency/inhibitor and/or anticoagulants. For patients on anti-Vitamin K therapy, repeating DRVVT testing might be indicated when the patient is off anti-vitamin K therapy. The DRVVT assay contains a heparin neutralizer up to 1.0 U/mL. Higher concentrations of heparin may cause interferences. SCT results are not affected by UF heparin up to 0.5 U/mL and LMW Heparin up to 1.0 U/mL. Higher concentrations of heparin may cause interferences. Correlation with clinical findings and clinical history is necessary to assess significance of results in an individual patient. Performed By: #### L AI #### [facility] [address] [place] [address] SCT CONFIRMATION 1.27 RATIO Normal [facility] Comment on above: Performed By: #### L AI #### [facility] [address] [place] [id number] SCT TEST RATIO 0.61 RATIO Normal <=1.16 [facility] Comment on above: Performed By: #### L AI #### [facility] [address] [place] [address] DRVVT CONFIRMATION 1.05 RATIO Normal [facility] Comment on above: Performed By: #### L AI #### [facility] [address] [place] [address] DRVVT SCREEN 0.98 RATIO Normal [facility] Comment on above: Performed By: #### L AI #### [facility] [address] [place] [address] DRVVT TEST RATIO 0.94 RATIO Normal <=1.20 [facility] Comment on above: Performed By: #### L AI #### [facility] [address] [place] [address] SCT SCREEN 0.78 RATIO Normal [facility] Comment on above: Performed By: #### L AI #### [facility] [address] [place] [id number] Lupus Anticoag. With Interpr etation[Bravo]on 04-02-2023 Lupus anticoagulant two screening tests W Reflex Coag (PPP) [Interp] SEE BELOW [facility] Comment on above: No evidence of lupus anticoagulant in these assays (DRVVT and Silica Clotting Time (SCT)). Assay interferences may occur in the presence of factor deficiency/inhibitor and/or anticoagulants. For patients on anti-Vitamin K therapy, repeating DRVVT testing might be indicated when the patient is off anti-vitamin K therapy. The DRVVT assay contains a heparin neutralizer up to 1.0 U/mL. Higher concentrations of heparin may cause interferences. SCT results are not affected by UF heparin up to 0.5 U/mL and LMW Heparin up to 1.0 U/mL. Higher concentrations of heparin may cause interferences. Correlation with clinical findings and clinical history is necessary to assess significance of results in an individual patient. Lupus anticoagulant two scre ening tests W Reflex Coag (PPP) [Interp]on 04-02-2023 DRVVT CONFIRMATION 1.05 RATIO [facility] DRVVT TEST RATIO 0.94 [facility] dRVVT/dRVVT.excess phospholipid Coag (PPP) [Ratio] 0.98 RATIO [facility] Normalized silica clotting time (PPP) [Ratio] 0.61 [facility] SCT CONFIRMATION 1.[address] [facility] SCT SCREEN 0.[address] [facility] Venous Duplex Ultrasound DVT on 04-02-2023 [place] [id number] and Vascular Lab Report Lower Venous Duplex Ultrasound Patient Name: ERIC Villa Physician: [id number] [place] Lockett MD, [facility] Study Date: 04/01/2023 Referring KYLEE COTTON MD Physician: MRN/PID: [id number] PCP: Accession/Order#: [id number] CC Report to: Date of : 1945 Technologist: Jana Cai RVT Gender: M Technologist 2: Admission Status: Inpatient Location Performed: [facility] Diagnosis/ICD: R06.02-Shortness of breath Procedure/CPT: 03559 Peripheral venous duplex scan for DVT complete-72815 CRITICAL RESULT Critical Result: Acute DVT noted left lower extremity. Notification called to Chris Mccormick RN on 04/01/2023 at 12:38:06 PM by Jana Cai RVT. CONCLUSIONS: Right Lower Venous: No evidence of acute deep vein thrombus visualized in the right lower extremity. Left Lower Venous: There is acute occlusive deep vein thrombosis visualized in the posterior tibial, peroneal, popliteal and distal femoral veins. There is acute non-occlusive deep vein thrombosis visualized in the mid femoral vein. Imaging & Doppler Findings: Right Compressible Thrombus Flow Distal External Iliac Yes None Spontaneous/Phasic CFV Yes None Spontaneous/Phasic PFV Yes None FV Proximal Yes None Spontaneous/Phasic FV Mid Yes None FV Distal Yes None Popliteal Yes None Spontaneous/Phasic Peroneal Yes None PTV Yes None Left Compress Thrombus Flow Distal External Iliac Yes None Spontaneous/Phasic CFV Yes None Spontaneous/Phasic PFV Yes None FV Proximal Yes None FV Mid Partial Acute non-occlusive FV Distal No Acute occlusive None Popliteal No Acute occlusive None Peroneal No None PTV No None [id number] BEL Balderas MD Final Koko Frazier M D - 04/02/2023 [place] [address] and Vascular Lab Report Lower Venous Duplex Ultrasound Patient Name: ERIC Villa Physician: [id number] Koko Lockett MD [facility] Study Date: 04/01/2023 Referring KYLEE COTTON MD Physician: MRN/PID: [id number] PCP: Accession/Order#: [id number] CC Report to: Date of : 1945 Technologist: Jana Cai RVT Gender: M Technologist 2: Admission Status: Inpatient Location Performed: [facility] Diagnosis/ICD: R06.02-Shortness of breath Procedure/CPT: 94950 Peripheral venous duplex scan for DVT complete-50634 CRITICAL RESULT Critical Result: Acute DVT noted left lower extremity. Notification called to Chris Mccormick RN on 04/01/2023 at 12:38:06 PM by Jana Cai RVT. CONCLUSIONS: Right Lower Venous: No evidence of acute deep vein thrombus visualized in the right lower extremity. Left Lower Venous: There is acute occlusive deep vein thrombosis visualized in the posterior tibial, peroneal, popliteal and distal femoral veins. There is acute non-occlusive deep vein thrombosis visualized in the mid femoral vein. Imaging & Doppler Findings: Right Compressible Thrombus Flow Distal External Iliac Yes None Spontaneous/Phasic CFV Yes None Spontaneous/Phasic PFV Yes None FV Proximal Yes None Spontaneous/Phasic FV Mid Yes None FV Distal Yes None Popliteal Yes None Spontaneous/Phasic Peroneal Yes None PTV Yes None Left Compress Thrombus Flow Distal External Iliac Yes None Spontaneous/Phasic CFV Yes None Spontaneous/Phasic PFV Yes None FV Proximal Yes None FV Mid Partial Acute non-occlusive FV Distal No Acute occlusive None Popliteal No Acute occlusive None Peroneal No None PTV No None [id number] Koko Lockett MD, RPVI Final [facility] Work Phone: Venous Duplex Ultrasound DVT Ordered By: Koko Lockett on 04-02-2023 [facility] Work Phone: ACT Coag (Bld)on 04-01-2023 Interpretation and review of laboratory results Abnormal [facility] ACTIVATED CLOTTING TIME LOWo n 04-01-2023 ACT Coag (Bld) 235 s High [facility] Comment on above: Note new reference roc culver as of 10/08/2018. Target ACT range will vary based on the patient population, clinical status, and surgical intervention occurring. ANTICARDIOLIPIN ABon 023 JORGE IGM 3.3 MPL U/mL Normal 0.0 - 20.0 [facility] Comment on above: Result Comment: Elev ated levels of IgM anti-cardiolipin on 2 occasions at least 12 weeks apart are laboratory criteria for anti-phospholipid syndrome according to an international consensus (J Thromb Haemost 2006 4:295). IgM anti-cardiolipin tends to give false positive results in the low positive range, especially in the presence of rheumatoid factor or cryoglobulins. Performed By: #### B NP2 #### [facility] [address] [place] [address] JORGE IGA 1.3 APL U/mL Normal 0.0 - 20.0 [facility] Comment on above: Result Comment: Elev ated levels of IgA anti-cardiolipin have not been included in the laboratory criteria for anti-phospholipid syndrome according to an international consensus (J Thromb Haemost 2006 4:295). It may be helpful in identifying subgroups of patients at risk for specific clinical manifestations of anti-phospholipid syndrome. Performed By: #### B NP2 #### [facility] [address] [place] [address] JORGE IGG <1.6 Normal 0.0 - 20.0 [facility] Comment on above: Result Comment: Elev ated levels of IgG anti-cardiolipin on 2 occasions at least 12 weeks apart are laboratory criteria for anti-phospholipid syndrome according to an international consensus (J Thromb Haemost 2006 4:295). Performed By: #### B NP2 #### [facility] [address] [place] [address] Adult Cathon 04-01-2023 [facility], [place], [address] [place] [address] Cardiovascular Catheterization Report Patient Name: ERIC AGARWAL Performing Physician: Fabrice Youngblood MD Study Date: 03/31/2023 Verifying Physician: Fabrice Youngblood MD MRN/PID: [id number] Vessel Welder/Co-scrub: Accession/Order#: [id number] Fellow: [id number] Mitch Campos MD PhD Date of : 1945 Fellow: [id number] Julio Ahn MD Gender: M Referring Physician: Zachary Montoya MD Study: Pulmonary Intervention Indications: ERIC AGARWAL is a 78 year old male who presents with intermediate-high risk PE, 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 Bilateral PE R>L (?may have laminated appearance on L lobe) with significant O2 requirement with +PFO on echo. PEERLESS enrollment. Procedure Description: After infiltration of local anesthetic, the right femoral vein was identified with two dimensional ultrasound. Under direct ultrasound visualization, the right femoral vein was cannulated with a percutaneous technique. Pulmonary Embolism: We predilated with a 22F [place] dilator, and placed a 24F sheath into the vein. Post-procedure, the venous sheath was pulled and pressure was applied to the site via figure-of-8. Prior to access, we imaged the bilateral common femoral veins to evaluate for thrombus. No thrombus was noted. We selectively engaged the pulmonary artery using a PWP (required to cross from RV to PA; JR4 to sequentially engage PAs) diagnostic catheter. Pre-thrombectomy RA and PA pressures were obtained. Following this, we sequentially engaged the following PA branches with Inari Ubjshzo99 with the assistance of a curved Ffvbdqj45 for selective extirpation of material: Right main and LLL posterior basal. Successful thrombectomy was performed. Selective angiogram was performed during the procedure to help locate thrombus for extraction. Post-thrombectomy RA and PA pressures were obtained. Pre: RA 20 mmHg PA 50/30/37 mmHg PA sat 61%, Hgb 14.1, CI 1.67 Post: RA 7 mmHg PA 35/20/25 mmHg PA sat 68%, Hgb 13.8, CI 2.08 We did perform angiogram of the L side due to only a modest amout of htormbus retrieved. T24 was advanced into the lower lobe for suction as well without significant output. Suspect chronic component to residual thrombi. Hemo Personnel: + +---- --------+ Name Duty + +---- --------+ Adeel Youngblood MD, MD 1 + +---- --------+ Gertrude Ruvalcaba RN PROC NURSE 1 + +---- --------+ Edwige Sanchez NURSE 2 + +---- --------+ Sedation Time: + + + Sedation Start/End Times Time + + + Start 03/31/2023 16:40:42 + + + End 03/31/2023 17:33:36 + + + Drugs Fentanyl 25 mcg IV per physician for sed + + + Equipment Used: + +---- -+ Date/Time Description + +---- -+ 03/31/2023 4:26:56 PM {4F Sheaths} [facility] Medical 4fr x 10cm JEFF Mini Access Kit - Qty: 1 Each Part #: [id number] + +---- -+ 03/31/2023 4:32:24 PM {5F Sheaths} Terumo 5 Fr x 10cm [place] Sheath - Qty: 1 Each Part #: [id number] + +---- -+ 03/31/2023 4:32:39 PM {Diagnostic Wires} - Amplatz Super Stiff .035mm x 260cm J-Tip - Qty: 1 Each Part #: [id number] + +---- -+ 03/31/2023 4:32:54 PM {Diagnostic Wires} Smalls Hi-Torque Versacore .035mm x 260cm Hi-Torque Floppy - Qty: 1 Each Part #: [id number] + +---- -+ 03/31/2023 4:33:11 PM {Accessories} Cook 21G Cook needle - Qty: 1 Each Part #: [id number]-21-2.5 + +---- -+ 03/31/2023 4:33:2 (more content not included)... 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 Bilateral PE R>L (?may have laminated appearance on L lobe) with significant O2 requirement with +PFO on echo. PEERLESS enrollment. Procedure Description: After infiltration of local anesthetic, the right femoral vein was identified with two dimensional ultrasound. Under direct ultrasound visualization, the right femoral vein was cannulated with a percutaneous technique. Pulmonary Embolism: We predilated with a 22F [place] dilator, and placed a 24F sheath into the vein. Post-procedure, the venous sheath was pulled and pressure was applied to the site via figure-of-8. Prior to access, we imaged the bilateral common femoral veins to evaluate for thrombus. No thrombus was noted. We selectively engaged the pulmonary artery using a PWP (required to cross from RV to PA; JR4 to sequentially engage PAs) diagnostic catheter. Pre-thrombectomy RA and PA pressures were obtained. Following this, we sequentially engaged the following PA branches with Inari Iapouyp80 with the assistance of a curved Xmjhtza02 for selective extirpation of material: Right main and LLL posterior basal. Successful thrombectomy was performed. Selective angiogram was performed during the procedure to help locate thrombus for extraction. Post-thrombectomy RA and PA pressures were obtained. Pre: RA 20 mmHg PA 50/30/37 mmHg PA sat 61%, Hgb 14.1, CI 1.67 Post: RA 7 mmHg PA 35/20/25 mmHg PA sat 68%, Hgb 13.8, CI 2.08 We did perform angiogram of the L side due to only a modest amout of htormbus retrieved. T24 was advanced into the lower lobe for suction as well without significant output. Suspect chronic component to residual thrombi. Hemo Personnel: + +---- --------+ Name Duty + +---- --------+ Adeel Youngblood MD PROC 1 + +---- --------+ Gertrude Ruvalcaba RN PROC 1 + +---- --------+ Edwige Sanchez PROC 2 + +---- --------+ Sedation Time: + + + Sedation Start/End Times Time + + + Start 03/31/2023 16:40:42 + + + End 03/31/2023 17:33:36 + + + Drugs Fentanyl 25 mcg IV per physician for sed + + + Equipment Used: + +---- ----+ Date/Time Description + +---- ----+ 03/31/2023 4:26:56 PM {4F Sheaths} [facility] Medical 4fr x 10cm MUSTAPHA Mini Access Kit - Qty: 1 Each Part #: [id number] + +---- ----+ 03/31/2023 4:32:24 PM {5F Sheaths} Terumo 5 Fr x 10cm Woolstock Sheath - Qty: 1 Each Part #: [id number] + +---- ----+ 03/31/2023 4:32:39 PM {Diagnostic Wires} - Amplatz Super Stiff .035mm x 260cm J-Tip - Qty: 1 Each Part #: 911 + +---- ----+ 03/31/2023 4:32:54 PM {Diagnostic Wires} Smalls Hi-Torque Versacore .035mm x 260cm Hi-Torque Floppy - Qty: 1 Each Part #: [id number] + +---- ----+ 03/31/2023 4:33:11 PM {Accessories} Cook 21G Cook needle - Qty: 1 Each Part #: SDN-21-2.5 + +---- ----+ 03/31/2023 4:33:20 PM {Accessories} - Fast Patches - Qty: 1 Each Part #: [id number] + +---- ----+ 03/31/2023 4:38:07 PM {Infusion/Embolic/Thrombec misti} INARI FlowTriever 25mm Catheter Embolectomy - Qty: 1 Each Part #: [id number] + +---- ----+ 03/31/2023 4:39:05 PM Inari 24 fr sheath + +---- (more content not included)... [facility] Work Phone: Adult CathOrdered By: Adeel Youngblood on 04-01-2023 [facility] Work Phone: BETA 2 GLYCOPROTEIN ABon B2 GLYCOPROTEIN AB IGM 4.4 U/mL Normal 0.0 - 20.0 [facility] Comment on above: Result Comment: Elev ated levels of IgM anti-Beta 2 Glycoprotein-I on 2 occasions at least 12 weeks apart are laboratory criteria for anti-phospholipid syndrome according to an international consensus (J Thromb Haemost 2006 4:295). IgM anti-Beta 2 Glycoprotein-I tends to give false positive results in the low positive range, especially in the presence of rheumatoid factor or cryoglobulins. Performed By: #### B 2GLY #### [facility] [address] [place] [id number] B2 GLYCOPROTEIN AB IGA 1.0 U/mL Normal 0.0 - 20.0 [facility] Comment on above: Result Comment: Elev ated levels of IgA anti-Beta 2 Glycoprotein-I have not been included in the laboratory criteria for anti-phospholipid syndrome according to an international consensus (J Thromb Haemost 2006 4:295). It may be helpful in identifying subgroups of patients at risk for specific clinical manifestations of anti-phospholipid syndrome. A significant proportion of IgA anti-Beta 2 Glycoprotein- positive tests has no apparent association with any clinical manifestation of anti-phospholipid syndrome. Performed By: #### B 2GLY #### [facility] [address] [place] [address] B2 GLYCOPROTEIN AB IGG <1.4 Normal 0.0 - 20.0 [facility] Comment on above: Result Comment: Elev ated levels of IgG anti-Beta 2 Glycoprotein-I on 2 occasions at least 12 weeks apart are laboratory criteria for anti-phospholipid syndrome according to an international consensus (J Thromb Haemost 2006 4:295). Performed By: #### B 2GLY #### [facility] [address] [place] [address] BNPon 04-01-2023 Natriuretic peptide B (Bld) [Mass/Vol] 314 pg/mL High 0 - 99 [facility] Comment on above: Result Comment: . <1 00 pg/mL - Heart failure unlikely 100-299 pg/mL - Intermediate probability of acute heart . failure exacerbation. Correlate with clinical . context and patient history. >=300 pg/mL - Heart Failure likely. Correlate with clinical . context and patient history. Biotin interference may cause falsely decreased results. Patients taking a Biotin dose of up to 5 mg/day should refrain from taking Biotin for 24 hours before sample collection. Providers may contact their local laboratory for further information. Performed By: #### B NP2 #### [facility] [address] [place] [address] Beta-2 Glycoprotein Antibodi eson 04-01-2023 Beta 2 glycoprotein 1 Ab IgA and IgG and IgM panel (S) <1.4 0.0 - 20.0 U/mL [facility] Comment on above: Elevated levels of I gG anti-Beta 2 Glycoprotein-I on 2 occasions at least 12 weeks apart are laboratory criteria for anti-phospholipid syndrome according to an international consensus (J Thromb Haemost 2006 4:295). Beta 2 glycoprotein 1 Ab IgA and IgG and IgM panel (S) 1.0 U/mL 0.0 - 20.0 U/mL [facility] Comment on above: Elevated levels of I gA anti-Beta 2 Glycoprotein-I have not been included in the laboratory criteria for anti-phospholipid syndrome according to an international consensus (J Thromb Haemost 2006 4:295). It may be helpful in identifying subgroups of patients at risk for specific clinical manifestations of anti-phospholipid syndrome. A significant proportion of IgA anti-Beta 2 Glycoprotein- positive tests has no apparent association with any clinical manifestation of anti-phospholipid syndrome. Beta 2 glycoprotein 1 Ab IgA and IgG and IgM panel (S) 4.4 U/mL 0.0 - 20.0 U/mL [facility] Comment on above: Elevated levels of I gM anti-Beta 2 Glycoprotein-I on 2 occasions at least 12 weeks apart are laboratory criteria for anti-phospholipid syndrome according to an international consensus (J Thromb Haemost 2006 4:295). IgM anti-Beta 2 Glycoprotein-I tends to give false positive results in the low positive range, especially in the presence of rheumatoid factor or cryoglobulins. CBCon 04-01-2023 Erythrocyte distribution width (RBC) [Ratio] 13.2 % Normal 11.5 - 14.5 [facility] Comment on above: Performed By: #### L AI #### [facility] [address] [place] [address] Hematocrit (Bld) [Volume fraction] 35.0 % Low 41.0 - 52.0 [facility] Comment on above: Performed By: #### L AI #### [facility] [address] [place] [address] Hemoglobin (Bld) [Mass/Vol] 11.9 g/dL Low 13.5 - 17.5 [facility] Comment on above: Performed By: #### L AI #### [facility] [address] [place] [address] MCHC (RBC) [Mass/Vol] 34.0 g/dL Normal 32.0 - 36.0 [facility] Comment on above: Performed By: #### L AI #### [facility] [address] [place] [address] MCV (RBC) [Entitic vol] 92 fL Normal 80 - 100 [facility] Comment on above: Performed By: #### L AI #### [facility] [address] [place] [address] NUCLEATED RBC 0.0 /100 WBC Normal 0.0-0.0 [facility] Comment on above: Performed By: #### L AI #### [facility] [address] [place] [address] Platelets (Bld) [#/Vol] 196 10*3/uL Normal 150 - 450 [facility] Comment on above: Performed By: #### L AI #### [facility] [address] [place] [address] RBC 3.82 x10E12/L Low 4.50 - 5.90 [facility] Comment on above: Performed By: #### L AI #### [facility] [address] [place] [address] WBC (Bld) [#/Vol] 12.7 10*3/uL High 4.4 - 11.3 [facility] Comment on above: Performed By: #### L AI #### [facility] [address] [place] [address] CBC panel Auto (Bld)on 04-01 Erythrocyte distribution width (RBC) [Ratio] 13.2 % 11.5 - 14.5 % [facility] Hematocrit (Bld) [Volume fraction] 35.0 % Low 41.0 - 52.0 % [facility] Hemoglobin (Bld) [Mass/Vol] 11.9 g/dL Low 13.5 - 17.5 g/dL [facility] Interpretation and review of laboratory results Abnormal [facility] MCHC (RBC) [Mass/Vol] 34.0 g/dL 32.0 - 36.0 g/dL [facility] MCV (RBC) [Entitic vol] 92 fL 80 - 100 fL [facility] Nucleated RBC/100 WBC (Bld) [Ratio] 0.0 % [facility] Platelets (Bld) [#/Vol] 196 10*3/uL [facility] RBC (Bld) [#/Vol] 3.82 10*6/uL Low [facility] WBC (Bld) [#/Vol] 12.7 10*3/uL High [facility] Cardiolipin Ab IA Qn (S)on 0 04-01-2023 Anticardiolipin IgA 1.3 [facility] Comment on above: Elevated levels of I gA anti-cardiolipin have not been included in the laboratory criteria for anti-phospholipid syndrome according to an international consensus (J Thromb Haemost 2006 4:295). It may be helpful in identifying subgroups of patients at risk for specific clinical manifestations of anti-phospholipid syndrome. Anticardiolipin IgG <1.6 [facility] Comment on above: Elevated levels of I gG anti-cardiolipin on 2 occasions at least 12 weeks apart are laboratory criteria for anti-phospholipid syndrome according to an international consensus (J Thromb Haemost 2006 4:295). Anticardiolipin IgM 3.3 [facility] Comment on above: Elevated levels of I gM anti-cardiolipin on 2 occasions at least 12 weeks apart are laboratory criteria for anti-phospholipid syndrome according to an international consensus (J Thromb Haemost 2006 4:295). IgM anti-cardiolipin tends to give false positive results in the low positive range, especially in the presence of rheumatoid factor or cryoglobulins. Daily Progress Note-Cardiolo jeane 04-01-2023 Daily Progress Note-Cardiology Service: Cardiology Subjective Data: ERIC AGARWAL is a 78 year old Male who is Hospital Day # 2. Patient transferred today from CICU to the medicine floor. Patient was seen today, he look comfortable on bed and complain of SOB on exertion he is currently on 4L NC oxygen. Overnight Events: Patient had an uneventful night. Additional Information: Patient was seen today, he look comfortable on bed and complain of SOB on exertion he is currently on 4L NC oxygen Objective Data: Objective Information: T PRBPMAPSpO2 Value36.63026180/842802% Date/Time04/01 12: 12: 12: 12: 12: 12:14 Range(36.2C - 37.3C ) (76 - 109 ) (15 - 31 ) (100 - 154 )/ (61 - 110 ) (75 - 124 ) (84% - 100% ) As of 01-Apr-2023 12:35:00, patient is on 4 L/min of oxygen via nasal cannula. Highest temp of 37.3 C was recorded at 04/01 0:00 Pain reported at 04/01 12:35: 0 = None Weights 04/01 4:00: Weight in kg (Weight (kg)) 100 04/01 4:00: Weight in lbs ((lbs)) 220.4 03/31 11:30: BMI (kg/m2) (BMI (kg/m2)) 30.795 Physical Exam Narrative: Physical Exam: Physical Exam Constitutional: lying in bed, appears slightly tachypneic but NAD Eyes: EOMI, clear sclera ENMT: moist mucous membranes Head/Neck: no appreciable JVD Respiratory/Thorax: CTAB, increased WOB on 4L NS Cardiovascular: HS irregularly irregular, no murmur Gastrointestinal: soft, NT, ND, +BS, no appreciable HSM Extremities: LLE asymmetrically swollen compared to RLE. No edema Neurological: AOx4, pleasant, conversational, following commands, Gr 5/5 power in all extremities Skin: warm and dry Psych: Appropriate mood and affect Medication: Medications: Continuous Medications ------ 1. Heparin 25,000 units/ D5W 250 mL Infusion..: 1800 units/hr IntraVenous Scheduled Medications ------ 1. Heparin (Repeat Bolus) Injectable: 6000 unit(s) IntraVenous Push Every 4 Hours 2. Mirtazapine: 30 mg Oral At Bedtime PRN Medications ------ No PRN medications are active Conditional Medication Orders ------ 1. Perflutren Lipid Microsphere (Activated) 1.3 mL / NaCL 0.9% T.V. 10 mL Injectable: 0.5 mL IntraVenous Push Once 2. Perflutren Lipid Microsphere (Activated) 1.3 mL / NaCL 0.9% T.V. 10 mL Injectable: 0.5 mL IntraVenous Push Once Recent Lab Results: Results: CBC: 04/01/2023 04:11 \ Hgb / \ 11.9 L / WBC Plt 12.7 H 196 / Hct \ / 35.0 L \ RBC: 3.82 L MCV: 92 RFP: 04/01/2023 04:11 NA+ Cl- BUN / 142 109 H 28 H / ------ Glucose - 110 H K+ HCO3- Creat \ 3.8 25 1.18 \ Calcium : 7.3 LAnion Gap : 12 Albumin : 2.9 L Phos : 2.9 Coagulation: 04/01/2023 04:11 PT / / -------< INR < PTT\ \ Heparin Assay: 0.6 I have reviewed these laboratory results: Beta 2 Glycoprotein Ab 01-Apr-2023 09:14:00 ResultValue Zvzp-6-Pcfzposleycl IgG Antibody <1.4 Ixne-5-Rksxxbfilwgt IgA Antibody 1.0 Okaq-4-Nfrjotvvzkbj IgM Antibody 4.4 Anticardiolipin Ab 01-Apr-2023 09:14:00 ResultValue Anticardiolipin IgG, Serum <1.6 Anticardiolipin IgA, Serum 1.3 Anticardiolipin IgM, Serum 3.3 Brain Natriuretic Peptide Trending View [id number] 09:14:00 31-Mar-2023 11:05:00 Brain Natriuretic Ptmsvad107 H 697 H Renal Function Panel Trending View [id number] 04:11:00 31-Mar-2023 11:05:00 Glucose, Racjc403 H 108 H NA142 142 K3.8 4.7 CL109 H 105 Bicarbonate, Serum25 26 Anion Gap, Serum12 16 BUN28 H 37 H CREAT1.18 1.29 GFR Male63 57 A Calcium, Serum7.3 L 9.2 Phosphorus, Serum2.9 4.0 ALB2.9 L 3.8 Complete Blood Count Trending View [id number] 04:11:00 31-Mar-2023 11:05:00 White Blood Cell Count12.7 H 14.7 H Nucleated Erythrocyte Count0.0 0.0 Red Blood Cell Count3.82 L 4.57 HGB11.9 L 14.2 HCT35.0 L 42.1 MCV92 92 MCHC34.0 33.7 PFJ892 216 RDW-CV13.2 13.1 Troponin I, High Sensitivity Trending View [id number] 04:11:00 31-Mar-2023 11:05:00 Troponin I, High Dlbpudibpiq77 H 212 H Heparin assay, UFH 01-Apr-2023 04:11:00 ResultValue Heparin assay, UFH 0.6 Coagulation Screen 31-Mar-2023 11:05:00 ResultValue Prothrombin Time, Plasma 13.5 H International Normalized Ratio, Plasma 1.2 H Activated Partial Thromboplastin Time 88 H Magnesium, Serum 31-Mar-2023 11:05:00 ResultValue Magnesium, Serum 2.38 Radiology Results: Results: Conclusion: Preliminary Cardiology Report [place] [address] and Preliminary Vascular Lab Report Lower Venous Duplex Ultrasound Patient Name: ERIC Villa Physician: [id number] Koko Lockett MD, JANE STAPLES Study Date: 03/07 (more content not included)... Normal [facility] Daily Progress Note-Vascular Medicineon 04-01-2023 Daily Progress Note-Vascular Medicine Consult Type: subsequent visit/care Service: Vascular Medicine Subjective Data: ERIC AGARWAL is a 78 year old Male who is Hospital Day # 2. DENIES BLEEDING, FEELS MUCH BETTER. Overnight Events: Patient had an uneventful night. Additional Information: Patient seems better than yesterday, with less SOB noticed during talking, and is currently on 4L of O2 down from 30L yesterday in the CICU. Objective Data: Objective Information: T PRBPMAPSpO2 [id number]% Date/Time04/01 15: 15: 15: 15: 12: 15:38 Range(36.2C - 37.3C ) (76 - 109 ) (15 - 31 ) (100 - 154 )/ (61 - 110 ) (75 - 124 ) (84% - 100% ) As of 01-Apr-2023 12:35:00, patient is on 4 L/min of oxygen via nasal cannula. Highest temp of 37.3 C was recorded at 04/01 0:00 Pain reported at 04/01 12:35: 0 = None Physical Exam by System: Constitutional: Well developed, awake/alert/oriented x3, no distress, alert and cooperative AGREE Eyes: PERRL, EOMI, clear sclera Respiratory/Thorax: Patent airways, CTAB, normal breath sounds with good chest expansion, thorax symmetric AGREE Cardiovascular: Irregular rhythm due to Afib AGREE Extremities: normal extremities, no edema AGREE Psychological: Appropriate mood and behavior AGREE Medication: Medications: Continuous Medications ------ 1. Heparin 25,000 units/ D5W 250 mL Infusion..: 1800 units/hr IntraVenous Scheduled Medications ------ 1. Heparin (Repeat Bolus) Injectable: 6000 unit(s) IntraVenous Push Every 4 Hours 2. Mirtazapine: 30 mg Oral At Bedtime PRN Medications ------ No PRN medications are active Conditional Medication Orders ------ 1. Perflutren Lipid Microsphere (Activated) 1.3 mL / NaCL 0.9% T.V. 10 mL Injectable: 0.5 mL IntraVenous Push Once 2. Perflutren Lipid Microsphere (Activated) 1.3 mL / NaCL 0.9% T.V. 10 mL Injectable: 0.5 mL IntraVenous Push Once Recent Lab Results: Results: CBC: 04/01/2023 04:11 \ Hgb / \ 11.9 L / WBC Plt 12.7 H 196 / Hct \ / 35.0 L \ RBC: 3.82 L MCV: 92 RFP: 04/01/2023 04:11 NA+ Cl- BUN / 142 109 H 28 H / ------ Glucose - 110 H K+ HCO3- Creat \ 3.8 25 1.18 \ Calcium : 7.3 LAnion Gap : 12 Albumin : 2.9 L Phos : 2.9 Coagulation: 04/01/2023 04:11 PT / / -------< INR < PTT\ \ Heparin Assay: 0.6 I have reviewed these laboratory results: Beta 2 Glycoprotein Ab 01-Apr-2023 09:14:00 ResultValue Wjoy-9-Lcorermkjnve IgG Antibody <1.4 Wpoy-6-Bhefwikzmljo IgA Antibody 1.0 Zwbo-8-Tjoezibtjnhf IgM Antibody 4.4 Anticardiolipin Ab 01-Apr-2023 09:14:00 ResultValue Anticardiolipin IgG, Serum <1.6 Anticardiolipin IgA, Serum 1.3 Anticardiolipin IgM, Serum 3.3 Brain Natriuretic Peptide 01-Apr-2023 09:14:00 ResultValue Brain Natriuretic Peptide 314 H Troponin I, High Sensitivity 01-Apr-2023 04:11:00 ResultValue Troponin I, High Sensitivity 95 H Heparin assay, UFH 01-Apr-2023 04:11:00 ResultValue Heparin assay, UFH 0.6 Radiology Results: Results: Conclusion: CONCLUSIONS: 1. Extirpation of acute/subacute thrombus via Inari. 2. Small residual L lower lobe c/w component of chronic clot as well (despite use of T24). 3. Follow up in Endovascular and VM clinics. 4. [facility]. __ ____ CPT Codes: Moderate Sedation Services initial 15 minutes patient >5 years-78720; Moderate Sedation Services 1st additional 15 minutes patient >5 years-16984; Moderate Sedation Services 2nd additional 15 minutes patient >5 years-57154; Moderate Sedation Services 3rd additional 15 minutes patient >5 years-90472; Angiography, pulmonary, unilateral S&I-[id number]; Selective catheter placement, left or right pulmonary artery uni-07335; Selective catheter placement, left or right pulmonary artery bilat-82237.50; Extirpation of material, unilateral PA-51903;Extirpation of material, contralateral PA-92469.50 ICD 10 Codes: I26.09-Other pulmonary embolism with acute cor pulmonale [id number] Adeel Youngblood MD Performing Physician cc Reportto: [id number] Zachary Montoya MD Final Cardiac Catheterization Lab Procedures [Apr 01 2023 3:01PM] Conclusion: Preliminary Cardiology Report [place] [address] and Preliminary Vascular Lab Report Lower Venous Duplex Ultrasound Patient Name: ERIC Villa Physician: [id number] Koko Lockett MD, JANE STAPLES Study Date: 04/01/2023 Referring KYLEE COTTON MD Phy (more content not included)... Normal [facility] Discharge [id number] Discharge Profile2 Discharge Orders: Anticipated Discharge Date: Anticipated Discharge [id number] Hospital Providers: Provider RoleProvider Name AttendingDieudonneBryan vincent ConsultingVascular Medicine Code Status: Code Status at Discharge: Full Code DNR Order Additional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 and children under 18 years old <35 ng/L; Male <54 ng/L: Negative Repeat testing should be performed if clinically indicated. . Female and children under 18 years old 35-120 ng/L; Male 54-120 ng/L: Consistent with possible cardiac damage and possible increased clinical risk. Serial measurements may help to assess extent of myocardial damage. . >120 ng/L: Consistent with cardiac damage, increased clinical risk and myocardial infarction. Serial measurements may help assess extent of myocardial damage. . NOTE: Children less than 1 year old may have higher baseline troponin levels and results should be interpreted in conjunction with the overall clinical context. . NOTE: Troponin I testing is performed using a different testing methodology at [facility] than at other [facility]. Direct result comparisons should only be made within the same method. [facility] VAS LAB Venous Duplex Ultra sound DVTon 04-01-2023 [facility] Venous Duplex Ultrasound DVT [place] [address] and Vascular Lab Report Lower Venous Duplex Ultrasound Patient Name: ERIC Daisy Physician: [id number] Koko Lockett MD, WALLYHLEMAN RPVI Study Date: 04/01/2023 Referring KYLEE COTTON MD Physician: MRN/PID: [id number] PCP: Accession/Order#: [id number] CC Report to: Date of : 1945 Technologist: Jana Cai RVT Gender: M Technologist 2: Admission Status: Inpatient Location Performed: [facility] Diagnosis/ICD: R06.02-Shortness of breath Procedure/CPT: 96327 Peripheral venous duplex scan for DVT complete-17061 CRITICAL RESULT Critical Result: Acute DVT noted left lower extremity. Notification called to Chris Mccormick RN on 04/01/2023 at 12:38:06 PM by Jana Cai RVT. CONCLUSIONS: Right Lower Venous: No evidence of acute deep vein thrombus visualized in the right lower extremity. Left Lower Venous: There is acute occlusive deep vein thrombosis visualized in the posterior tibial, peroneal, popliteal and distal femoral veins. There is acute non-occlusive deep vein thrombosis visualized in the mid femoral vein. Imaging \EANDE\ Doppler Findings: Right Compressible Thrombus Flow Distal External Iliac Yes None Spontaneous/Phasic CFV Yes None Spontaneous/Phasic PFV Yes None FV Proximal Yes None Spontaneous/Phasic FV Mid Yes None FV Distal Yes None Popliteal Yes None Spontaneous/Phasic Peroneal Yes None PTV Yes None Left Compress Thrombus Flow Distal External Iliac Yes None Spontaneous/Phasic CFV Yes None Spontaneous/Phasic PFV Yes None FV Proximal Yes None FV Mid Partial Acute non-occlusive FV Distal No Acute occlusive None Popliteal No Acute occlusive None Peroneal No None PTV No None [id number] Koko Lockett MD, RPVI Final Normal [facility] Venous Duplex Ultrasound DVT on 04-01-2023 Radiology Study observation (narrative) [facility] Work Phone: ACT-LOW RANGEon 03-31-2023 ACT-LOW RANGE 235 SECONDS High 89 - 169 [facility] Comment on above: Result Comment: Note new reference range as of 10/08/2018. Target ACT range will vary based on the patient population, clinical status, and surgical intervention occurring. Performed By: #### A CTLR #### [facility] [address] [place] [address] Admission Risk Screen - Adul ton 03-31-2023 Admission Risk Screen - Adult Allergies: Allergies: No Known Allergies: Patient Verification: New W ID Band Applied in my Departmentyes Patient Identity Verified Bypatient ID Band FULL Name, include Middle, spelling matches patient's ID used for verificationyes ID Band Matches Patient ID used for Verficationyes ID Band MRN Matches EMR MRNyes Visitor Restriction: Coronavirus Visitor Restriction: Reasonable restrictions to in-person visitors will be observed due to current coronavirus pandemic. Travel History: COVID-19 Screening Completedno exposure or symptoms Travel or Exposure Past 30 DaysNO travel to International locations in the past 30 days Ebola AlertFor Ebola-like Symptoms: Isolate Patient and Notify Provider/Lot Boss For Contact: Notify Provider/Lot Boss Advance Directive: Advance Directive/DNRno Advance Directive Information Givenpatient/family declined Lucio Fall Screen: History of falling (immediate or previous)yes (25) Secondary Diagnosisyes (15) Intravenous Therapy/ Heparin/Saline Lockyes (20) Gait/Transferringweak (10) Ambulatory Aidsnone/bedrest/nurse assist (0) Mental Statusoriented to own ability (0) Score: Low risk (<25). Moderate risk (25-44). High risk (>44).70 Lucio InterventionsHIGH INTERVENTIONS *Low and Moderate Interventions Plus: * supervised toileting at all times Family Violence Screen: Are you or have you been threatened or abused physically, emotionally, or sexually by anyoneno Do you feel UNSAFE going back to the place where you are livingno Clinical assessment: Are there any apparent signs of injuries/behaviors that could be related to abuse/neglectno Social Service Consult for abuse/neglect needed this visitno Functional Screen: Functional Screen: In the recent/past 2-4 weeks, patient or family have noticeda significant change in speech or language AM-PAC- Basic Mobility/Daily Activity: Patient baseline bedboundno Learning Assessment (Patient): Patient is Able to be Assessed for Learningyes Factors Influencing Readiness to Learnacuteness of illness Factors that Impact Ability to Learnhearing problems Devices/Methods Used to Communicatehearing aids Learning Preferencesverbal instruction; individual instruction Cultural Considerationsnone Developmental Considerationsnone Baptism Considerationsreligious considerations Learning Assessment (Other Learner): Other learner availableno Depression Screen: During the past month, have you often been bothered by feeling down, depressed or hopelessno During the past month, have you often had little interest or pleasure in doing thingsno Have you had any thoughts of harming anyone elseno Notrees Suicide: Risk Screen Not Applicable/Able to Answerable to be screened In the Past Month: Have you wished you were or could go to sleep and not wake upno In the Past Month: Have you had any actual thoughts of killing yourselfno Lifetime: Have you ever done, started to do, or prepared to do anything to end your lifeno Notrees Suicide Risknegative Adult Nutrition Screen: Have you recently lost weight without tryingno Have you been eating poorly because of a decreased appetiteno Malnutrition Screening Tool Score0 Malnutrition Screening Tool RiskMST = 0 or 1 Not at risk. Eating well with little or no weight loss Nutrition Consult needed this visitno Can Patient Participate in Room Serviceyes Patient requires Paper Dishes/Plastic Utensilsno Pain Screen: Pain Scalenumerical 0-10 Pain Scale Educationteaching provided Current Pain Level0 = None Acceptable Pain Level0 = None Expression of Pain (nonverbal)none Chronic Painyes back pain Spiritual Screen: Are there any cultural, spiritual, episcopal practices/values/needs that are important for us to knowyes Spiritual Care Commentpt is Congregation CAGE: Is this an injured patient at a Trauma Center ([facility]/Lu/Jaguar/Jose Luis/Edis Shepherd/Nabor): no Vaccinations: Vaccination - Influenza Vaccination Screen: Is it flu season (between and October 03)Yes Screening for identified contraindications to influenza vaccination patient/caregiver refusal Vaccination - Pneumonia Vaccination Screen: Patient has received a previous pneumonia vaccine:no/unknown... Pneumonia vaccine NOT indicated due to:patient/caregiver refusal at this time Truman: Skin - Truman Scale: Truman: Sensory Perception (response to environment)(4) no impairment Truman: Moisture (degree skin exposed to moisture)(4) rarely moist Truman: Activity (ability to walk)(3) walks occasionally Truman: Mobility (amount/control of body movement)(3) slightly limited Truman: Nutrition (quality of food intake)(2) probably inadequate Truman: Friction and Shear(3) no apparent problem Truman: Score19 Significant Indicatiors: Significant Indicators: Complete Pressure Injury: Pressure Injur (more content not included)... Normal [facility] BNPon 03-31-2023 Natriuretic peptide B (Bld) [Mass/Vol] 697 pg/mL High 0 - 99 [facility] Comment on above: Result Comment: . <1 00 pg/mL - Heart failure unlikely 100-299 pg/mL - Intermediate probability of acute heart . failure exacerbation. Correlate with clinical . context and patient history. >=300 pg/mL - Heart Failure likely. Correlate with clinical . context and patient history. Biotin interference may cause falsely decreased results. Patients taking a Biotin dose of up to 5 mg/day should refrain from taking Biotin for 24 hours before sample collection. Providers may contact their local laboratory for further information. Performed By: #### L AI #### [facility] [address] [place] [address] Blood type and Indirect anti body screen panel (Bld)on 03-31-2023 ABO group Nom (Bld) A [facility] Rh Nom (Bld) Positive [facility] CBCon 03-31-2023 Erythrocyte distribution width (RBC) [Ratio] 13.1 % Normal 11.5 - 14.5 [facility] Comment on above: Performed By: #### B NP2 #### [facility] [address] [place] [address] Hematocrit (Bld) [Volume fraction] 42.1 % Normal 41.0 - 52.0 [facility] Comment on above: Performed By: #### B NP2 #### [facility] [address] [place] [address] Hemoglobin (Bld) [Mass/Vol] 14.2 g/dL Normal 13.5 - 17.5 [facility] Comment on above: Performed By: #### B NP2 #### [facility] [address] [place] [address] MCHC (RBC) [Mass/Vol] 33.7 g/dL Normal 32.0 - 36.0 [facility] Comment on above: Performed By: #### B NP2 #### [facility] [address] [place] [address] MCV (RBC) [Entitic vol] 92 fL Normal 80 - 100 [facility] Comment on above: Performed By: #### B NP2 #### [facility] [address] [place] [address] NUCLEATED RBC 0.0 /100 WBC Normal 0.0-0.0 [facility] Comment on above: Performed By: #### B NP2 #### [facility] [address] [place] [address] Platelets (Bld) [#/Vol] 216 10*3/uL Normal 150 - 450 [facility] Comment on above: Performed By: #### B NP2 #### [facility] [address] [place] [address] RBC 4.57 x10E12/L Normal 4.50 - 5.90 [facility] Comment on above: Performed By: #### B NP2 #### [facility] [address] [place] [address] WBC (Bld) [#/Vol] 14.7 10*3/uL High 4.4 - 11.3 [facility] Comment on above: Performed By: #### B NP2 #### [facility] [address] [place] [address] CBC panel Auto (Bld)on 03-31 Erythrocyte distribution width (RBC) [Ratio] 13.1 % 11.5 - 14.5 % [facility] Hematocrit (Bld) [Volume fraction] 42.1 % 41.0 - 52.0 % [facility] Hemoglobin (Bld) [Mass/Vol] 14.2 g/dL 13.5 - 17.5 g/dL [facility] Interpretation and review of laboratory results Abnormal [facility] MCHC (RBC) [Mass/Vol] 33.7 g/dL 32.0 - 36.0 g/dL [facility] MCV (RBC) [Entitic vol] 92 fL 80 - 100 fL [facility] Nucleated RBC/100 WBC (Bld) [Ratio] 0.0 % [facility] Platelets (Bld) [#/Vol] 216 10*3/uL [facility] RBC (Bld) [#/Vol] 4.57 10*6/uL [facility] WBC (Bld) [#/Vol] 14.7 10*3/uL High [facility] COAGULATION SCREENon 023 aPTT Coag (Bld) [Time] 88 s High 27 - 38 [facility] Comment on above: Result Comment: Note new reference range as of 12/23/2022 at 10:00am. Performed By: #### C OAGS #### [facility] [address] [place] [address] PT Coag (PPP) [Time] 13.5 s High 9.8 - 12.8 [facility] Comment on above: Result Comment: Note new reference range as of 12/23/2022 at 10:00am. Performed By: #### C OAGS #### [facility] [address] [place] [address] PT, INR 1.2 High 0.9 - 1.1 [facility] Comment on above: Performed By: #### C OAGS #### [facility] [address] [place] [address] Clinical Event Note-PERT donis rob 03-31-2023 Clinical Event Note-PERT call Clinical Event: Clinical Event Note: TopicPERT call Details Briefly, this is a 78-year-old male patient with PMHx of afib (not on AC), history of VTE in the past (no more details available), HFpEF, and BRODY. Presented to [facility] with acute once SOB, and dizziness, he also had hypoxemic respiratory failure requiring ventimask (FiO2 50%). CTA of the chest showed bilateral pulmonary embolism with sign of RV strain. Vitals: HR: 103 BP: 108/58 SpO2: 88%-90% on Ventimask. afebrile Troponin: 410 BNP: 995 Lactate: 5.8 assessment and plan: This is a case of bilateral pulmonary embolism with signs of RV strain but stable hemodynamics (PESI score 110, class IV), and (ERS risk category of intermediate-high risk), [facility] Recommendations: - Continue heparin gtt. - No indications for immediate advanced intervention at this time. - Transfer to [facility] CICU for further evaluation. - Pt needs TTE and lower extremities doppler US once transferred. Case discussed with Dr. Shepherd (MICU attending), and Dr. Youngblood (interventional cardiology). Electronic Signatures: Amara Shepherd) (Signed 01-Apr-2023 06:29) Co-Signer: Clinical Event Note Adeel Youngblood) (Signed 01-Apr-2023 09:31) Co-Signer: Clinical Event Note Stephanie Mallory (Fellow)) (Signed 31-Mar-2023 08:25) Authored: Clinical Event Note Last Updated: 01-Apr-2023 09:31 by Adeel Youngblood) Normal [facility] Consult-Vascular Medicineon 03-31-2023 Consult-Vascular Medicine Service: Service: Vascular Medicine Consult: Consult requested by (Attending Name): CORRIE Reason: PERT FOLLOW UP History of Present Illness: HPI: Eric Henry is a 70-year-old male with PMH of BRODY, Afib, who initially presented to the [facility] for dizziness, shortness of breath on exertion on 03/31. Patient reports that he has been experiencing dizziness on standing up for the past 3-4 days. 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 He also endorses dyspnea on exertion over the past 3-4 days, denies shortness of breath at rest, and denies orthopnea/PND. It has become progressively more difficult to breathe. He was able to drive to his sons house on Thursday but lay in bed all of Thursday as he could not get out without feeling dyspneic. His neighbor visited him on Thursday and informed his family who forcibly brought him to the [facility] ED. HE DENIES RECENT TRAVEL BY AIR OR CAR. NO RECENT ILLNESS, SURGERY OR HOSPITALIZATION. NO RECENTS VIRAL ILLNESS, COLDS OR FLU. NO RECENT COVID VACCINATION. On arrival to the [facility], he was tachy to 103, BP stable at 108/58, RR 24, was started on 50% ventimask in the ED and SaO2 at 88%. Then admitted to MICU where he was transitioned to HFNC 30L/100% and SaO2 at low 90%. PERT team was contacted overnight and determined no need for immediate intervention but to transfer patient to [facility] CICU for further imaging, assessment to determine need for intervention as appropriate. Throughout VAMICU course patient remained vitally stable, HR in 80s, RUKHSANA stable and was weaned down to 30L/80%, SaO2 in 90s%. On arrival to the CICU, patient is not in distress, pleasant and loquacious. VS: HR 91bpm irregularly irregular, BP 126/85 (95), SaO2 94% on 30L/70% HFNC. He denies chest pain, reports ongoing SOB when he moves around in the bed. ED course in [facility]: LABS: CBC: 14.4, 70.2, 249 CHEM: 140, 4.4, 103, 222, 28, 1.7, 209 VBG 7.30, 17, 22, lactate 5.88 COVID, RSV, flu negative BNP 995 Troponin 410 LFTS: Total bili 1.8, otherwise within normal limits, TSH elevated 6.09 ECG: Atrial fibrillation Imaging: CTPE 1. Extensive bilateral pulmonary emboli noted with thrombus seen in the right and left main pulmonary arteries with extension all lobar branches. There is evidence of right heart strain. 2. No evidence of pulmonary infarct. BY REPORT PMH: AFIB PREV ON XARELTO BUT DID NOT FEEL IT WAS DOING ANYTHING FOR HIM SO STOPPED THIS MSK: Reports weakness in BLE and unable to support his weight PSHx: Back surgery 40 years prior Meds: Mirtazepine Vitamin D Rivaroxaban has been since January 2023 at least- patient reports he hasnt been using it for 1 year Allergies: NKDA Fam Hx: No hx of clots, aneurysms, vascular diseases known to patient Soc Hx: Alcohol: very occasionally, Tobacco: never smoker (2 packs in lifetime as a teenager) WORKS A [employer] Illicits: denies Living: On his own. Independent for ADLs and iADLs. 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 Ambulates w/out assistance. 7 years ago. He has 1 son in [place], 1 son in [place] and 1 dtr in [place] who are involved in his care Review Family/Social History and ROS: Social History: Smoking Status: never smoker (1) Alcohol Use: denies(1) Constitutional: NEGATIVE: Fever, Chills, Weight Loss Eyes: NEGATIVE: Blurry Vision, Diploplia, Redness, Vision Loss/ Change Respiratory: POSITIVE: Shortness of Breath; NEGATIVE: Productive Cough, Hemoptysis, Wheezing Cardiac: POSITIVE: Dyspnea on Exertion, Palpitations; NEGATIVE: Chest Pain, Syncope Gastrointestinal: NEGATIVE: Nausea, Vomiting, Diarrhea, Constipation Genitourinary: NEGATIVE: Hematuria Musculoskeletal: NEGATIVE: Pain, Swelling Neurological: POSITIVE: Dizziness; NEGATIVE: Headache, Seizures, Syncope Psychiatric: NEGATIVE: Mood Changes Skin: NEGATIVE: Rash, Ulcer Hematologic/Lymph: NEGATIVE: Easy Bleeding, Petechiae Allergies: No Known Allergies: Objective: Objective Information: T PRBPMAPSpO2 [id number]% Date/Time04/01 4: 7: 7: 7: 7: 7:00 Range(36.4C - 37.3C ) (76 - 109 ) (15 - 31 ) (100 - 154 )/ (63 - 110 ) (78 - 124 ) (84% - 100% ) As of 01-Apr-2023 00:00:00, patient is on 10 L/min of oxygen via high-flow nasal cannula. Highest temp of 37.3 C was recorded at 04/01 0:00 Weights 04/01 4:00: Weight in kg (Weight (kg)) 100 04/01 4:00: Weight in lbs ((lbs)) 220.4 03/31 11:30: BMI (kg/m2) (BMI (kg/m2)) 30.795 Physical Exam by System: Constitutional: Slightly tachypnic AGREE CURRENTLY SITTING ON THE SIDE OF THE BED, NAD, AIRVO IS OFF Eyes: EOMI, ENMT: MMM Head/Neck: Neck supple, no apparent injury, No JVD AGREE Respiratory/Thorax: CTAB, increased WOB w/ RR 24/min on 30L/70% HFNC AGR (more content not included)... Normal [facility] EMR ADDONon 03-31-2023 ADDON CONFIRMATION REQUEST REC'D Normal [facility] Comment on above: Performed By: #### B NP2 #### [facility] [address] [place] [address] ADDON CONFIRMATION REQUEST REC'D Normal [facility] Comment on above: Performed By: #### L AI #### [facility] [address] [place] [address] Echocardiogramon 03-31-2023 Echocardiography [facility] nter, [id number] [place] [address] and TRANSTHORACIC ECHOCARDIOGRAM REPORT Patient Name: ERIC AGARWAL Reading Physician: [id number] Demario Anguiano MD Study Date: 03/31/2023 Referring Physician: KYLEE COTTON MRN/PID: [id number] PCP: Accession/Order#: [id number] Department Location: [facility] Date of : 1945 Fellow: [id number] Syed Stewart MD Gender: M Nurse: Admit Date: 03/31/2023 Other Wood Processing Machine Operator: Susy Valle [facility] Admission Status: Inpatient - STAT Additional Staff: Height: 177.00 cm CC Report to: Count includes the [facility] Weight: 99.79 kg Study Type: Echocardiogram BSA: 2.17 m2 Blood Pressure: 127 /87 mmHg Diagnosis/ICD: I26.09-Other pulmonary embolism with acute cor pulmonale Indication: Pulmonary Embolism Procedure/CPT: Echo Complete w Full [id number] Patient History: Pertinent History: A-Fib. Pulmonary embolism, Dizziness, Acute Respiratory failure, BRODY, shortness of breath, HFpEF. Study Detail: The following Echo studies were performed: 2D, M-Mode, Doppler and color flow. Technically challenging study due to body habitus, prominent lung artifact and poor acoustic windows. Definity used as a contrast agent for endocardial border definition and agitated saline used as a contrast agent for intraseptal flow evaluation. Total contrast used for this procedure was 4.0 mL via IV push. Patient's heart rhythm is atrial fibrillation. PHYSICIAN INTERPRETATION: Left Ventricle: The left ventricular systolic function is normal. There are no regional wall motion abnormalities. The left ventricular cavity size is normal. The interventricular septum is flattened in systole and diastole, consistent with right ventricular pressure and volume overload. Left ventricular diastolic filling was not assessed. Left Atrium: The left atrium is severely dilated. A bubble study using agitated saline was performed. Bubble study is positive. 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 Right Ventricle: The right ventricle is severely enlarged. There is severely reduced right ventricular systolic function. Right Atrium: The right atrium is severely dilated. Aortic Valve: The aortic valve appears structurally normal. There is no evidence of aortic valve regurgitation. The peak instantaneous gradient of the aortic valve is 6.0 mmHg. The mean gradient of the aortic valve is 3.0 mmHg. Mitral Valve: The mitral valve is normal in structure. There is trace mitral valve regurgitation. Tricuspid Valve: The tricuspid valve is structurally normal. There is mild tricuspid regurgitation. The Doppler estimated RVSP is moderately elevated at 52.2 mmHg. Pulmonic Valve: The pulmonic valve is structurally normal. There is trace pulmonic valve regurgitation. Pericardium: There is no pericardial effusion noted. Aorta: The aortic root is normal. The Ao Sinus is 3.30 cm. The Asc Ao is 3.70 cm. Systemic Veins: The inferior vena cava appears to be of normal size. There is less than 50% IVC collapse with inspiration. CONCLUSIONS: 1. Poorly visualized anatomical structures due to suboptimal image quality. 2. Left ventricular systolic function is normal. 3. Right ventricular volume and pressure overload. 4. Severely enlarged right ventricle. 5. There is severely reduced right ventricular systolic function. 6. The left atrium is severely dilated. 7. The right atrium is severely dilated. 8. Moderately elevated right ventricular systolic pressure. 9. A bubble study using agitated saline was performed. Bubble study is positive. 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 QUANTITATIVE DATA SUMMARY: 2D MEASUREMENTS: Normal Ranges: Ao Root d: 3.30 cm (2.0-3.7cm) LAs: 4.50 cm (2.7-4.0cm) IVSd: 1.40 cm (0.6-1.1cm) LVPWd: 1.26 cm (0.6-1.1cm) LVIDd: 4.00 cm (3.9-5.9cm) LVIDs: 2.80 cm LV Mass Index: 89.1 g/m2 LV % FS 30.0 % LA VOLUME: Normal Ranges: LA Vol A4C: 106.8 ml (22+/-6mL/m2) LA Vol Index A4C: 49.3ml/m2 LA Area A4C: 27.0 cm2 LA Major [place] A4C: 5.8 cm LA Vol A4C: 95.1 ml RA VOLUME BY A/L METHOD: Normal Ranges: RA Vol A4C: 130.2 ml (8.3-19.5ml) RA Vol Index A4C: 60.1 ml/m2 RA Area A4C: 31.8 cm2 RA Major [place] A4C: 6.6 cm AORTA MEASUREMENTS: Normal Ranges: Ao Sinus, d: 3.30 cm (2.1-3.5cm) Asc Ao, d: 3.70 cm (2.1-3.4cm) LV DIASTOLIC FUNCTION: Normal Ranges: MV Peak E: 0.43 m/s (0.7-1.2 m/s) MV e' 0.10 m/s (>8.0) MV lateral e' 0.13 m/s MV medial e' 0.07 m/s E/e' Ratio: 4.30 (<8.0) MITRAL VALVE: Normal Ranges: MV DT: 153 msec (150-240msec) AORTIC VALVE: Normal Ranges: AoV Vmax: 1.22 m/s (<=1.7m/s) AoV Peak P.0 mmHg (<20mmHg) AoV Mean P.0 mmHg (1.7-11.5mmHg) LVOT Max Bienvenido: 0.73 m/s (<=1.1m/s) AoV VTI: 14.10 cm (18-25cm) LVOT VTI: 9.85 cm LVOT Diameter: 2.00 cm (1.8-2.4cm) AoV Area, VTI: 2.19 cm2 (2.5-5.5cm2) AoV Area,Vmax: 1.87 cm2 (2.5-4.5cm2) AoV Dimensionless Index: 0.70 RIGHT VENTRICLE: RV Basal 4.70 cm (more content not included)... Normal [facility] HEPARIN ASSAY,UFHon 03-31- 23 HEPARIN ASSAY,UFH 0.7 IU/mL Normal [facility] Comment on above: Result Comment: The therapeutic reference range for UFH may be either 0.3-0.6 IU/mL or 0.3-0.7 IU/mL based on the clinical setting for anticoagulant therapy and the associated nomogram used. For heparin dosing guidelines based on clinical scenario and Heparin Assay results, please refer to local Pharmacy and the [facility] Guidelines for Anticoagulation therapy available on the [facility] intranet at: [email or web address]_ [email or web address] hermilo_[email or web address] Performed By: #### B NP2 #### [facility] [address] [place] [address] HEPARIN ASSAY,UFH 0.6 IU/mL Normal [facility] Comment on above: Result Comment: The therapeutic reference range for UFH may be either 0.3-0.6 IU/mL or 0.3-0.7 IU/mL based on the clinical setting for anticoagulant therapy and the associated nomogram used. For heparin dosing guidelines based on clinical scenario and Heparin Assay results, please refer to local Pharmacy and the [facility] Guidelines for Anticoagulation therapy available on the [facility] intranet at: [email or web address]/Pharmacy/[email or web address]_ ospitals_Guid elines_for_Anticoagu.aspx Performed By: #### B NP2 #### [facility] [address]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 [facility] OPIATES Positive Abnormal NEGATIVE [facility] Comment on above: Performed By: #### 3 1079 ####[facility] [place] [address], [place] PHENCYCLIDINE Negative Normal NEGATIVE [facility] Comment on above: Performed By: #### 3 1079 ####[facility] [place] [address], [place] TRICYCLICS Negative Normal NEGATIVE [facility] Comment on above: Performed By: #### 3 1079 ####[facility] [place] [address], [place] TYPE AND SCREENon 05-30-2018 ABO INTERPRETATION A Normal [facility] Comment on above: Performed By: #### 6 2586 ####[facility] [place] [address], [place] RH INTERPRETATION Positive Normal [facility] Comment on above: Performed By: #### 6 2586 ####[facility] [place] [address], [place] URINALYSIS REFLEXon 05-30-20 18 APPEARANCE CLEAR Normal CLEAR [facility] Comment on above: Order Comment: Crite marisol for reflexing a culture was not met. Please call the lab [id number] within 24 hours of collection time if culture is needed Performed By: #### 3 0965 ####[facility] [place] [address], [place] BILIRUBIN Negative Normal NEGATIVE [facility] Comment on above: Order Comment: Crite marisol for reflexing a culture was not met. Please call the lab [id number] within 24 hours of collection time if culture is needed Performed By: #### 3 0943 ####[facility] [place] [address], [place] BLOOD TRACE Abnormal NEGATIVE [facility] Comment on above: Order Comment: Crite marisol for reflexing a culture was not met. Please call the lab [id number] within 24 hours of collection time if culture is needed Performed By: #### 3 0965 ####[facility] [place] [address], [facility] COLOR YELLOW Normal YELLOW [facility] Comment on above: Order Comment: Crite marisol for reflexing a culture was not met. Please call the lab [id number] within 24 hours of collection time if culture is needed Performed By: #### 3 0965 ####[facility] [facility] [address], [facility] EPIS OCC Normal FEW,OCC,NON E SEEN [facility] Comment on above: Order Comment: Crite marisol for reflexing a culture was not met. Please call the lab [id number] within 24 hours of collection time if culture is needed Performed By: #### 3 0965 ####[facility] [facility] [address], [facility] GLUCOSE Negative Normal NEGATIVE [facility] Comment on above: Order Comment: Crite marisol for reflexing a culture was not met. Please call the lab [id number] within 24 hours of collection time if culture is needed Performed By: #### 3 0965 ####[facility] [facility] [place] [address], [facility] INR Coag RelTime (Bld) 0-2 Abnormal NONE SEEN Th e [facility] Comment on above: Order Comment: Crite marisol for reflexing a culture was not met. Please call the lab [id number] within 24 hours of collection time if culture is needed Performed By: #### 3 0965 ####[facility] [facility] [address], [facility] KETONE Negative Normal NEGATIVE [facility] Comment on above: Order Comment: Crite marisol for reflexing a culture was not met. Please call the lab [id number] within 24 hours of collection time if culture is needed Performed By: #### 3 0965 ####[facility] [place] [address], [place] LEUK ANGELA Negative Normal NEGATIVE [facility] Comment on above: Order Comment: Crite marisol for reflexing a culture was not met. Please call the lab [id number] within 24 hours of collection time if culture is needed Performed By: #### 3 0965 ####[facility] [place] [address], [place] MUCUS THREADS OCC Abnormal NONE SEEN [facility] Comment on above: Order Comment: Crite marisol for reflexing a culture was not met. Please call the lab [id number] within 24 hours of collection time if culture is needed Performed By: #### 3 0965 ####[facility] [place] [address], [place] NITRITE Negative Normal NEGATIVE [facility] Comment on above: Order Comment: Crite marisol for reflexing a culture was not met. Please call the lab [id number] within 24 hours of collection time if culture is needed Performed By: #### 3 0965 ####[facility] [facility] [place] [address], [place] PH 5.0 Normal 5.0-8.0 [facility] Comment on above: Order Comment: Crite marisol for reflexing a culture was not met. Please call the lab [id number] within 24 hours of collection time if culture is needed Performed By: #### 3 0965 ####[facility] [place] [address], [place] Protein mass conc Negative Normal NEGATIVE [facility] Comment on above: Order Comment: Crite marisol for reflexing a culture was not met. Please call the lab [id number] within 24 hours of collection time if culture is needed Performed By: #### 3 0965 ####[facility] [place] [address], [place] Performed By: #### 3 1079 ####[facility] SPEC GRAV 1.020 Normal 1.015-1.020 [facility] Comment on above: Order Comment: Crite marisol for reflexing a culture was not met. Please call the lab [phone] within 24 hours of collection time if culture is needed Performed By: #### 3 0965 ####[facility] [facility] [address], [facility] WBC UA NONE SEEN Normal NONE SEEN [facility] Comment on above: Order Comment: Crite marisol for reflexing a culture was not met. Please call the lab [id number] within 24 hours of collection time if culture is needed Performed By: #### 3 0965 ####[facility] Vital Signs Date Time Vital Sign Value Performing Clinician Facility 06-03-2023 09:52-0500 Body height 180.[address] 06-03-2023 09:52-0500 Body mass index (BMI) [Ratio] 30.4 kg/m2 [address] 06-03-2023 09:52-0500 Body weight 98.[address] 06-03-2023 09:52-0500 Diastolic blood pressure 80 mm[Hg] [address] 06-03-2023 09:52-0500 Systolic blood pressure 128 mm[Hg] [address] 04-15-2023 12:00-0400 Diastolic blood pressure 75 mm[Hg] Ophelia Rai MD Work Phone: [facility] 04-15-2023 12:00-0400 Heart rate 93 /min Ophelia Rai MD Work Phone: [facility] 04-15-2023 12:00-0400 Systolic blood pressure 123 mm[Hg] Ophelia Rai MD Work Phone: [facility] 04-15-2023 11:59-0400 Body height 180.3 cm Ophelia Rai MD Work Phone: [facility] 04-15-2023 11:59-0400 Body mass index (BMI) [Ratio] 30.4 kg/m2 Ophelia Rai MD Work Phone: [facility] 04-15-2023 11:59-0400 Body weight 98.88 kg Ophelia Rai MD Work Phone: [facility] 04-15-2023 11:59-0400 Respiratory rate 16 /min Ophelia Rai MD Work Phone: [facility] 04-03-2023 13:22-0400 Body height 180.2 cm Text Entry [facility] 04-03-2023 13:22-0400 Body weight 98.4 kg [facility] 04-03-2023 09:36-0400 Body temperature 96.8 [degF] [facility] 04-03-2023 09:36-0400 Diastolic blood pressure 72 mm[Hg] Text [facility] 04-03-2023 09:36-0400 Heart rate 55 /min Text Entry [facility] 04-03-2023 09:36-0400 Respiratory rate 20 /min Text Entry [facility] 04-03-2023 09:36-0400 Systolic blood pressure 115 mm[Hg] Text Entry [facility] 04-03-2023 05:54-0400 SaO2% (BldA) [Mass fraction] 94 % Text Entry [facility] 04-02-2023 07:39-0400 Body height 180.2 cm Zachary Montoya MD Work Phone: [facility] 04-02-2023 07:39-0400 Body mass index (BMI) [Ratio] 30.12 kg/m2 Zachary Montoya MD Work Phone: [facility] 04-02-2023 07:39-0400 Body weight 97.8 kg Zachary Montoya MD Work Phone: [facility] Encounters Encounter Date Encounter Type Care Provider Facility Start: 02-17-2024 End: 02-17-2024 ambulatory [facility] Start: 08-19-2023 End: 08-19-2023 [facility]ulatory [facility] Start: 06-03-2023 End: 06-04-2023 ambulatory [facility] Start: 06-03-2023 End: 06-03-2023 Subsequent hospital visit by physician Mary Kay Hagan Echo/Vasc Room 2 [facility] Comment on above: Acute pulmonary embo lism with acute cor pulmonale, unspecified pulmonary embolism type (CMS/HCC) Start: 05-15-2023 End: 05-15-2023 Office outpatient visit 15 minutes Adeel Youngblood MD Work Phone: [facility] [place] Comment on above: Longstanding persist ent atrial fibrillation (CMS/HCC) (Primary Dx); Other pulmonary embolism without acute cor pulmonale, unspecified chronicity (CMS/HCC) Start: 05-15-2023 End: 05-15-2023 ambulatory [facility] Start: 04-15-2023 End: 04-15-2023 Office outpatient visit 40 minutes Ophelia Rai MD Work Phone: [facility] Comment on above: Acute pulmonary embo lism with acute cor pulmonale, unspecified pulmonary embolism type (CMS/HCC) (Primary Dx); Acute deep vein thrombosis (DVT) of other specified vein of left lower extremity (CMS/HCC); Patent foramen ovale Start: 04-15-2023 End: 04-15-2023 ambulatory [facility] Start: 03-31-2023 End: 04-03-2023 Evaluation and management of inpatient Bryan Razo [id number] [id number] Start: 03-31-2023 End: 04-03-2023 Evaluation and management of inpatient Zachary Montoya MD Work Phone: [facility] Dung Olivarez Comment on above: Other pulmonary embo lism without acute cor pulmonale (CMS/HCC) (Primary Dx) Start: 05-01-2021 End: 05-02-2021 ambulatory WILLIE JUAREZ Facility: Start: 09-11-2020 End: 09-12-2020 ambulatory NONE LISTED REQUEST Facility: Start: 08-13-2020 End: 08-14-[address] NONE LISTED REQUEST Facility: Start: 06-21-2018 End: 06-22-2018 Patient encounter procedure MARC WHITFIELD Facility:[email or web address] Start: 06-10-2018 End: 06-11-2018 Patient encounter procedure MARC M ROSEANN Facility:[facility] [[email or web address] Start: 05-30-2018 End: 05-31-2018 Patient encounter procedure SOFIA JONES Facility:[facility] [[email or web address]] Procedures Date Procedure Procedure Detail Performing Clinician Start: 06-03-2023 TRANSTHORACIC ECHO ( TTE) LIMITED ADEEL YOUNGBLOOD Start: 06-03-2023 Echo transthorc r-t 2d w/wo m-mode rec f-up/lmtd Adeel Youngblood MD Work Phone: Start: 04-03-2023 Complete blood count Rosario Gomez MD Work Phone: Start: 04-03-2023 Comprehensive metabo lic panel Uzair Gomez MD Work Phone: Start: 04-03-2023 Magnesium [Mass/volu me] in Serum or Plasma Uzair Gomez MD Work Phone: Start: 04-02-2023 Echocardiography Param Noriega MD Work Phone: Start: 04-02-2023 Heparin unfractionat ed [Units/volume] in Platelet poor plasma by Chromogenic method Kylee Cotton MD Work Phone: Start: 04-01-2023 VENOUS DUPLEX ULTRASOUND DVT Kylee Cotton MD Work Phone: Start: 04-01-2023 Beta 2 glycoprotein 1 Ab IgA and IgG and IgM panel - Serum Gibran Rodriguez MD Work Phone: Start: 04-01-2023 Cardiolipin Ab [Units/volume] in Serum by Immunoassay Gibran Rodriguez MD Work Phone: Start: 04-01-2023 Lupus anticoagulant two screening tests W Reflex Coag (PPP) [Interp] Gibran Rodriguez MD Work Phone: Start: 04-01-2023 Natriuretic peptide B [Mass/volume] in Blood Gibran Rodriguez MD Work Phone: Start: 04-01-2023 Complete blood count Julien Cotton MD Work Phone: Start: 04-01-2023 Heparin unfractionat ed [Units/volume] in Platelet poor plasma by Chromogenic method Kylee Cotton MD Work Phone: Start: 04-01-2023 Renal function panel Julien Cotton MD Work Phone: Start: 04-01-2023 Troponin I.cardiac p angel - Serum or Plasma by High sensitivity method Kylee Cotton MD Work Phone: Start: 03-31-2023 Activated clotting t johanne (ACT) of Blood by Coagulation assay Zachary Montoya MD Work Phone: Start: 03-31-2023 ADULT CATH Maria Dolores orantes MD Work Phone: Start: 03-31-2023 Antibody screen ZACHARY CORNEJO Comment on above: Performed By: #### T +S #### [facility] [address] [facility] [place] [address] Start: 03-31-2023 Heparin unfractionat ed [Units/volume] in Platelet poor plasma by Chromogenic method Kylee Cotton MD Work Phone: Start: 03-31-2023 Antibody screen Zachary cornejo MD Work Phone: Start: 03-31-2023 Echocardiography Donaldo Cotton MD Work Phone: Start: 03-31-2023 CBC panel - Blood by Automated count Kylee Cotton Start: 03-31-2023 Renal function 2000 panel - Serum or Plasma Kylee Cotton Start: 03-31-2023 Blood type and Indir ect antibody screen panel - Blood Kylee Cotton MD Work Phone: Start: 03-31-2023 Complete blood count Julien Cotton MD Work Phone: Start: 03-31-2023 Heparin unfractionat ed [Units/volume] in Platelet poor plasma by Chromogenic method Kylee Cotton MD Work Phone: Start: 03-31-2023 Magnesium [Mass/volu me] in Serum or Plasma Kylee Cotton MD Work Phone: Start: 03-31-2023 Natriuretic peptide B [Mass/volume] in Blood Kylee Cotton MD Work Phone: Start: 03-31-2023 PT and aPTT panel - Platelet poor plasma by Coagulation assay Kylee Cotton MD Work Phone: Start: 03-31-2023 Renal function panel Julien Cotton MD Work Phone: Start: 03-31-2023 Troponin I.cardiac p angel - Serum or Plasma by High sensitivity method Kylee Cotton MD Work Phone: Start: 05-30-2018 TREAT SHOULDER DISLOCATION ROSIE MALONE Start: 05-30-2018 Antibody screen SOFIA CHEEMA ITH Comment on above: Performed By: #### [id number] ####[place] [address] [address] Plan of Treatment Date Care Activity Detail Author Start: 04-29-2032 DTaP/Tdap/Td Vaccine s (3 - Td or Tdap) DTaP/Tdap/Td Vaccines (3 - Td or Tdap) [facility] Start: 08-19-2023 End: 08-19-2023 Patient encounter procedure 08/19/2023 10:40 AM EST Office Visit [facility] [address] [place] [id number] [place] [address] [place] [address] [facility] Start: 06-03-2023 End: 06-03-2023 Patient encounter procedure 06/03/2023 9:45 AM EST Appointment [facility] [address] [facility] [address] [place] [id number] [facility] Start: 05-12-2023 End: 05-12-2023 Patient encounter procedure 05/12/2023 2:00 PM EST Office Visit [facility] [address] [facility] [address] [place] [address] [place] [address] [place] [address] [facility] Start: 04-30-2023 End: 04-30-2023 Patient encounter procedure 04/30/2023 9:00 AM EDT Office Visit [facility] [address] [facility] [address] [place] [address] Syeda Payton, TRAFFIC LAW ATTORNEY-UNIT SUPERVISOR [address] [facility] [address] [place], [place] [id number] [facility] Start: 04-15-2023 End: 04-15-2023 Patient encounter procedure 04/15/2023 12:00 PM EDT Office Visit [facility] [address] [place] [address] [place] [address] [place] [address] [facility] Start: 04-02-2023 PFO (patent foramen ovale) PFO (patent foramen ovale) Date: 02-Apr-2023 [facility] Start: 04-01-2023 End: 04-01-2024 Perflutren Lipid Microsphere (Activated) 1.3 mL / NaCL 0.9% T.V. 10 mL Injectable . ; DOSE = 0.5 mL IntraVenous Push OnceCa.005 mL/Kg/DOSE x 100 Kg = 0.5 mL/Dose (Daily Total is 0.5 mL)Clinician Notes: 1. Dilute 1.3 mL of activated DEFINITY with 8.7 mL of normal saline in a 10 mL syringe.2. Inject 0.5 mL of diluted DEFINITY when notified the images/film are unclear to enhance view of Left Ventricular borders.3. Repeat 0.5 mL of DEFINITY until clear images are obtained, not to exceed 10 mLs.4. Once images are obtained or limit of medication is reached, flush line with 10 mL of Normal Saline. Start: 01-Apr-2023 End: 31-Mar-2024 Ordered: 31-Mar-2023 Zachary Montoya Intent Comments: 1. Dilute 1.3 mL of activated DEFINITY with 8.7 mL of normal saline in a 10 mL syringe.2. Inject 0.5 mL of diluted DEFINITY when notified the images/film are unclear to enhance view of Left Ventricular borders.3. Repeat 0.5 mL of DEFINITY until clear images are obtained, not to exceed 10 mLs.4. Once images are obtained or limit of medication is reached, flush line with 10 mL of Normal Saline. [facility] Comment on above: 1. Dilute 1.3 mL of activated DEFINITY with 8.7 mL of normal saline in a 10 mL syringe.2. Inject 0.5 mL of diluted DEFINITY when notified the images/film are unclear to enhance view of Left Ventricular borders.3. Repeat 0.5 mL of DEFINITY until clear images are obtained, not to exceed 10 mLs.4. Once images are obtained or limit of medication is reached, flush line with 10 mL of Normal Saline. Start: 03-31-2023 End: 03-31-2024 Perflutren Lipid Microsphere (Activated) 1.3 mL / NaCL 0.9% T.V. 10 mL Injectable . ; DOSE = 0.5 mL IntraVenous Push OnceClinician Notes: 1. Dilute 1.3 mL of activated DEFINITY with 8.7 mL of normal saline in a 10 mL syringe.2. Inject 0.5 mL of diluted DEFINITY when notified the images/film are unclear to enhance view of Left Ventricular borders.3. Repeat 0.5 mL of DEFINITY until clear images are obtained, not to exceed 10 mLs.4. Once images are obtained or limit of medication is reached, flush line with 10 mL of Normal Saline. Start: 31-Mar-2023 End: 30-Mar-2024 Ordered: 31-Mar-2023 Kylee Cotton Intent Comments: 1. Dilute 1.3 mL of activated DEFINITY with 8.7 mL of normal saline in a 10 mL syringe.2. Inject 0.5 mL of diluted DEFINITY when notified the images/film are unclear to enhance view of Left Ventricular borders.3. Repeat 0.5 mL of DEFINITY until clear images are obtained, not to exceed 10 mLs.4. Once images are obtained or limit of medication is reached, flush line with 10 mL of Normal Saline. [facility] Comment on above: 1. Dilute 1.3 mL of activated DEFINITY with 8.7 mL of normal saline in a 10 mL syringe.2. Inject 0.5 mL of diluted DEFINITY when notified the images/film are unclear to enhance view of Left Ventricular borders.3. Repeat 0.5 mL of DEFINITY until clear images are obtained, not to exceed 10 mLs.4. Once images are obtained or limit of medication is reached, flush line with 10 mL of Normal Saline. Start: 03-06-2023 Influenza vaccination Influenza Vacc ine (#1) [facility] Start: 06-26-2021 COVID-19 Vaccine (4 - Moderna series) COVID-19 Vaccine (4 - Moderna series) [facility] Start: 11-16-2018 Pneumococcal Vaccine : 65+ Years (2 - PPSV23 or PCV20) Pneumococcal Vaccine: 65+ Years (2 - PPSV23 or PCV20) [facility] Start: 01-11-2018 Pneumococcal Vaccine : 65+ Years (2 - PPSV23 or PCV20) Pneumococcal Vaccine: 65+ Years (2 - PPSV23 or PCV20) [facility] Start: 1995 Zoster Vaccines (1 of 2) Zoster Vacc abdulaziz (1 of 2) [facility] Start: 1963 Diabetes mellitus screening Diabetes Screening [facility] Start: 1963 Hepatitis C screening Hepatitis C Sc [facility] Start: 1945 Lipid panel Lipid Panel [facility] Start: 1945 Medicare Annual Well ness Visit Medicare Annual Wellness Visit (AWV) [facility] aPTT in Platelet poo r plasma by Coagulation assay aPTT Lab Timed As needed (Lab) until discontinued starting 04/04/2023 [facility] Service Area Work Phone: Comment on above: As needed (Lab) unti l discontinued starting 04/04/2023 Hemoglobin.gastroint jacey nal [Presence] in Stool --1st specimen Occult Blood, Stool Microbiology Timed As needed (Lab) until discontinued starting 04/04/2023 [facility] Work Phone: Comment on above: As needed (Lab) unti l discontinued starting 04/04/2023 Heparin unfractionat ed [Units/volume] in Platelet poor plasma by Chromogenic method Heparin Assay Lab Timed As needed (Lab) until discontinued starting 04/04/2023 [facility] Work Phone: Comment on above: As needed (Lab) unti l discontinued starting 04/04/2023 Prothrombin time (PT) Protime-IN R Lab Timed As needed (Lab) for 1 Occurrences starting 04/04/2023 [facility] Work Phone: Comment on above: As needed (Lab) for 1 Occurrences starting 04/04/2023 Urinalysis complete panel - Urine Urinalysis with Reflex Microscopic Lab Timed As needed (Lab) until discontinued starting 04/04/2023 [facility] Work Phone: Comment on above: As needed (Lab) unti l discontinued starting 04/04/2023 End: 04-04-2023 US Heart Transthoracic Transthoracic Echo (TTE) Complete Echocardiography STAT Once for 1 Occurrences starting 04/04/2023 until 04/04/2023 [facility] Service Area Work Phone: Comment on above: Once for 1 Occurrenc es starting 04/04/2023 until 04/04/2023 Immunizations Immunization Date Immunization Notes Care Provider Fa justin 04-29-2022 tetanus toxoid, redu norma diphtheria toxoid, and acellular pertussis vaccine, adsorbed Ophelia Kingsland MD Work Phone: [facility] Work Phone: 11-16-2017 pneumococcal conjuga te vaccine, 13 valent Ophelia Rai MD Work Phone: [facility] Work Phone: 06-21-2014 hepatitis A and hepatitis B vaccine Ophelia Rai MD Work Phone: [facility] Work Phone: 06-21-2014 influenza, seasonal, injectable, preservative free Ophelia Rai MD Work Phone: [facility] Work Phone: 06-21-2014 influenza virus vaccine, unspecified formulation Zachary Montoya MD Work Phone: [facility] Work Phone: 07-27-2013 hepatitis A and hepatitis B vaccine Ophelia Rai MD Work Phone: [facility] Work Phone: 07-27-2013 influenza virus vaccine, unspecified formulation Ophelia Rai MD Work Phone: [facility] Work Phone: 06-28-2013 diphtheria, tetanus toxoids and acellular pertussis vaccine, unspecified formulation Ophelia Rai MD Work Phone: [facility] Work Phone: 06-28-2013 hepatitis A and hepatitis B vaccine Ophelia Rai MD Work Phone: [facility] Work Phone: 06-28-2013 meningococcal ACWY vaccine, unspecified formulation Ophelia Rai MD Work Phone: [facility] Work Phone: 03-07-2009 pneumococcal vaccine , unspecified formulation Ophelia Rai MD Work Phone: [facility] Work Phone: Payers Date Payer Category Payer Unknown [id number] 2021 Medicare ANTH MEDICARE [facility] MEDICARE ADVANTAGE [id number] 2021-Present [address] [place] [address] [id number] 2005 Unknown [id number] 2005 Unknown [id number] 2005 Medicare [id number] 2005 Unknown 1959 Self-pay 1945 Unknown [id number] 1945 Unknown [id number] 1945 Unknown [id number] 1945 Unknown [id number] 1945 Unknown [id number] 1945 Unknown [id number] 1945 Unknown [id number] 1945 Unknown [id number] 1945 Unknown [id number] Medicare [id number] Unknown [id number] Unknown [id number] Unknown [id number] Social History Date Type Detail Facility Tobacco smoking status NHIS Tobacco smoking consumption unknown [facility] Work Phone: Start: 1945 [facility] Work Phone: Start: 04-15-2023 End: 05-15-2023 Gender identity Not on file [facility] Work Phone: Start: 04-15-2023 Tobacco smoking status NHIS Never smoked tobacco [facility] Start: 04-15-2023 Tobacco use and exposure Smokeless tobacco non-user [facility] Work Phone: Start: 04-15-2023 End: 05-15-2023 History of Social function [facility] Work Phone: Start: 04-05-2023 End: 06-03-2023 Exposure to SARS-CoV-2 (event) Not sure [facility] Functional Status Date Assessment Result Facility Functional observable [facility] Mental Status Date Assessment Result Facility 04-01-2023 Cognitive functi ons [id number] [facility] Clinical Notes 03-31-2023 to 05-15-2023 Adeel Youngblood MD - 05/15/2023 2:00 PM Barrera Rai MD - 04/15/2023 12:00 PM EDTPatient Instructions Note Date & Type Note Facility 05-15-2023 History of Present illness Narrative PCP: Christopher Orosco DO Vascular Medicine: Sarai Matos Eric Agarwal is a 78 y.o. male who is here for follow up of PE follow up - PEERLESS pt . Since last procedure, endorses improving symptoms. +PFO on index testing, as well as L sided fem-pop DVT. Still using O2 at night. Appt with PCP on to see if still needs O2. PSA normal; colonoscopy pending. Seen by Dr. Rai 04/15/23. Pending follow up echo in [place]. Review of Systems: Otherwise, limited cardiovascular review of systems is negative. Past Medical History: He has no past medical history on file. Surgical History: He has no past surgical history on file. Family History: No family history on file.No family history on file. Social History: Tobacco Use: Low Risk (04/15/2023) Patient History Smoking Tobacco Use: Never Smokeless Tobacco Use: Never Passive Exposure: Not on file Outpatient Medications: Current Outpatient Medications: apixaban (Eliquis) 5 mg tablet, Take 1 tablet (5 mg) by mouth 2 times a day., Disp: 60 tablet, Rfl: 1 cholecalciferol (Vitamin D-3) 50 MCG (2000 UT) tablet, Take 1 tablet (50 mcg) by mouth once daily., Disp: , Rfl: mirtazapine (Remeron) 30 mg tablet, TAKE 1 TABLET BY MOUTH ONCE DAILY AT BEDTIME., Disp: 30 tablet, Rfl: 0 Allergies: Patient has no known allergies. Objective Vital Signs: There were no vitals taken for this visit. Physical Exam: General: no acute distress Neurologic: Alert and oriented x3. Pertinent Recent Cardiovascular Studies (personally reviewed): Laboratory values: CMP: Recent Labs 04/03/23 0813 04/01/23 0411 03/31/23 1105 NA 142 142 142 K 3.9 3.8 4.7 CL 106 109* 105 CO2 25 25 26 ANIONGAP 15 12 16 BUN 21 28* 37* CREATININE 0.95 1.18 1.29 MG 2.35 -- 2.38 Recent Labs 04/03/23 0813 04/01/23 0411 03/31/23 1105 ALBUMIN 3.6 2.9* 3.8 ALKPHOS 70 -- -- ALT 22 -- -- AST 22 -- -- BILITOT 0.8 -- -- CBC: Recent Labs 04/03/23 0813 04/01/23 0411 03/31/23 1105 WBC 10.1 12.7* 14.7* HGB 13.1* 11.9* 14.2 HCT 40.2* 35.0* 42.1 PLT 266 196 216 MCV 95 92 92 COAG: Recent Labs 04/02/23 0744 04/01/23 0411 03/31/23 1513 03/31/23 1105 INR -- -- -- 1.2*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 Markings (unrecogniz ed section and content) Section Author: Marina Mcclain PROHIBITION ON REDISCLOSURE OF CONFIDENTIAL INFORMATION This notice accompanies a disclosure of information concerning a client made to you with the consent of such client. FOR RECORDS PERTAINING TO PATIENTS WHO ARE OR HAVE BEEN ENROLLED IN A CHEMICAL DEPENDENCY/SUBSTANCEABUSE PROGRAM, SOME INFORMATION MAY BE OMITTED. This clinical summary was aggregated from multiple sources. Caution should be exercised in using it in the provision of clinical care. This summary normalizes information from multiple sources, and as a consequence, information in this document may materially change the coding, format and clinical context of patient data. In addition, data may be omitted in some cases. CLINICAL DECISIONS SHOULD BE BASED ON THE PRIMARY CLINICAL RECORDS. [facility] [employer] [facility]. provides no warranty or guarantee of the accuracy or completeness of information in this document.
== END 2024-06-18 18:00 | disposition home or self-care (01) ==
PROVIDERS: Emergency Provider Emergency Medicine Emergency Medical Services; PCP Family Medicine
DX: S13.4XXA Sprain of ligaments of cervical spine, initial encounter (principal); V45.5XXA Car driver injured in collision with railway train or railway vehicle in traffic accident, initial encounter
CPT/HCPCS: 72052; 99283

== ENCOUNTER 2025-02-05 15:27 | Emergency (ER) | payer OTHER, SELFPAY ==
--- OUTSIDE RECORDS SUMMARY | 2023-12-08 09:30 | XMS_ITS ---
Author Organization [facility] in [place] Address [address] [place] [address] Care Team Providers Care Racing Car Driver Name Role Phone Mulu Orosco Primary Care Provider Unavailabl Juancho Estes Unavailable [phone] REASON FOR VISIT 6MO F/U Encounters Encounter Location Date Provider Diagnosis Pulmonary Medicine [address] [address] 12/08/2023 Juancho Huertas Plan Of Treatment No Information Progress Notes * James LARA DDOB:[birth year] (80 yo M)Acc No.[id number]:12/08/2023 UNLOCKED PROGRESS NOTE Follow Up Patient: Raúl SERRANOJames Provider: Jung Huertas DO :1945 A ge:78 Y S ex:Male Date:12/08/2023 Address:[address] [place] [address] [address], [id number] Pcp:Mulu Orosco Subjective: * Chief Complaints: * 1 . 6MO F/U. * Medical History: Objective: * Vitals: Assessment: Plan: * Treatment: * * Electronic signature of Rosa Huertas DO on 02/05/2025 at 03:34 PM EDT Sign off status: Pending Visit Status: C ANC (Cancelled) * Provider: Jung Huertas DO Date: 0 12/08/2023 Generated for Printi ng/Fakerryg/eTransmitting on: 02/05/2025 03:34 PM EDT
--- OUTSIDE RECORDS SUMMARY | 2024-01-11 07:56 | XMS_ITS ---
Author Organization [facility] in [place] Address [address] [place] [address] Care Team Providers Care Reaming Machine Operator Name Role Phone Kwesi, Mulu Primary Care Provider Juancho Dunn [phone] REASON FOR VISIT CMN Encounters Encounter Location Date Provider Diagnosis Pulmonary Medicine [address] [address] 01/11/2024 Juancho Huertas Plan Of Treatment No Information Progress Notes * James LARA DDOB:[birth year] (78 yo M)Acc No.[id number]:01/11/2024 Patient: James FOFANA :1945 A ge:78 Y S ex:Male Address:[address] [place] [address] [address], [place], [address] * true * Date: Generated for Suziei nica/Fakerryg/eTransmitting on: 0 02/05/2025 03:35 PM EDT
--- OUTSIDE RECORDS SUMMARY | 2024-02-22 09:00 | XMS_ITS | Encounter Summary ---
Author Name [facility] [place] [facility] [place] [facility] [place] Address [address] [place] [address] Care Team Providers Care Cartographic Designer Name Role Phone CHRISTOPHER SULTANA Primary Care Provider Unavailabl e Insurance Providers: All historical and current Section Date Range: From patient's date of to the date document was created. This section includes the names of all active insurance providers for the patient. Insurance Provider Type of Coverage Plan Name Start of Policy Coverage End of Policy Coverage Group Number Member ID Insurance Provider's Telephone Number Policy [place]'s Name Patient's Relationship to Policy [place] MEDICARE (WNR) MEDICARE (M) PART B Feb 03, 2010 PART B [id number] ERIC LARA PATIENT MEDICARE (WNR) MEDICARE (M) PART B Feb 03, 2010 PART B [id number] ERIC LARA PATIENT MEDICARE (WNR) MEDICARE (M) PART B Feb 03, 2010 PART B [id number] ERIC LARA PATIENT MEDICARE (WNR) MEDICARE (M) PART B Feb 03, 2010 PART B [id number] [phone] ERIC LARA PATIENT MEDICARE (WNR) MEDICARE (M) PART A Jan 03, 2010 PART A [id number] ERIC LARA PATIENT MEDICARE (WNR) MEDICARE (M) PART A Jan 03, 2010 PART A [id number] ERIC LARA PATIENT MEDICARE (WNR) MEDICARE (M) PART A Jan 03, 2010 PART A [id number] ERIC LARA PATIENT MEDICARE (WNR) MEDICARE (M) PART A Jan 03, 2010 PART A [id number] ERIC LARA PATIENT Selected Encounter This section includes the information on record at [place] for the Encounter. Date/Time Encounter Type Encounter Description Reason Provider Source Feb 22, 2024 01:00 PM OFFICE O/P EST MOD 30 MIN PRIMARY CARE/MEDICINE ICD-10-CM Z86.711 Personal history of pulmonary embolism JESUS MONIQUE Raúl Encounter Template Text not used by [place] Assessments - Encounter Diagnoses This section includes the primary and secondary diagnoses documented for the Encounter. Date/Time Primary/Secondary Diagnosis Diagnosis Name Provider Source Feb 22, 2024 02:06 PM PRIMARY Personal history of pulmonary embolism CHRISTOPHER SULTANA [facility] Feb 22, 2024 02:06 PM SECONDARY Other recurrent depressive disorders CHRISTOPHER SULTANA [facility] Feb 22, 2024 02:06 PM SECONDARY Patent foramen ovale CHRISTOPHER SULTANA [facility] Plan of Treatment: Future Appointments (+ 6 months) and Future Tests (+/- 45 days) The Plan of Treatment section includes future care activities for the patient from all [place] treatmentfacilities. This section includes future appointments and future orders which are active, pending or scheduled. Future Appointments This section includes appointments that were scheduled to occur 6 months from the date of the Encounter, up to a maximum of 20 appointments. The data comes from all [place] treatment facilities. Appointment Date/Time Appointment Type Appointme nt Facility Name Mar 02, 2024 07:00 AM AMBULATORY - NONE CLESTEPH Baker [facility] Mar 08, 2024 02:30 PM AMBULATORY - SURGERY LETY LAND [facility] Aug 19, 2024 02:15 PM AMBULATORY - NONE CLESTEPH Baker [facility] Aug 19, 2024 02:45 PM AMBULATORY - NONE [facility] Lab Results: +/- 30 days of the encounter This section includes the Chemistry and Hematology Lab Results on record with [facility] for the patient. Radiology Reports and Pathology Reports are provided separately, in subsequent sections. Lab Results This section contains the Chemistry/Hematology Results that were resulted 30 days before or 30 daysafter the date of the Encounter. Date/Time Source Result Type Result - Unit Interpretation Reference Range Specimen Type Comment Feb 22, 2024 11:[address] [facility] TSH PLASMA Specimen Type: PLASMA No comment entered. Ordering Provider: CHRISTOPHER SULTANA Report Released Date/Time: Feb 10, 2024 04:39 PM Reporting Lab: [place] [id number] Performing Lab: [place] [id number] TSH 2.295 u[IU]/mL 0.360-4.500 Feb 22, 2024 11:[address] [facility] LIPID PROFILE PLASMA Specimen Type: PLASMA Comment: LDL REF RANGE: OPTIMAL: <100 mg/dL BORDERLINE HIGH: 130-159 mg/dL LDL HIGH: 160-189 mg/dL VERY HIGH: >=190 TRIG REF RANGE: NORMAL <150 mg/dL BORDERLINE HIGH: 150-199 mg/dL TRIG HIGH: 200-499 mg/dL VERY HIGH: >=500 mg/dL Ordering Provider: CHRISTOPHER SULTANA Report Released Date/Time: Feb 10, 2024 04:39 PM Reporting Lab: [address] [address] Performing Lab: [address] [address] CHOLESTEROL 169 mg/dL 0-200 LDL CHOLESTEROL 136 mg/dL H 0-100 HDL CHOLESTEROL 42 mg/dL 40-60 TRIGLYCERIDE 114 mg/dL 0-150 Feb 22, 2024 11:[address] [facility] VITAMIN D (TOTAL) SERUM Specimen Type : SERUM No comment entered. Ordering Provider: CHRISTOPHER SULTANA Report Released Date/Time: Feb 10, 2024 04:39 PM Reporting Lab: [address] [address] Performing Lab: [place] [id number] VITAMIN D (TOTAL) 30.00 ng/mL 30.00-75.0 0 Feb 22, 2024 11:[address] [facility] HEMOGLOBIN A1C BLOOD Specimen Type: B LOOD Comment: Values obtained from A1C measurements can vary. For typical A1C assays, a reported value of 7.0 could actually be between 6.72 and 7.28 if measured by a reference method. A reported value of 9.0 could actually be between 8.73 and 9.27. Ref: http://www.ngsp.org/CAPdata.asp Ordering Provider: CHRISTOPHER SULTANA Report Released Date/Time: Feb 10, 2024 04:39 PM Reporting Lab: [address] [address] Performing Lab: [place] [id number] HEMOGLOBIN A1C 5.7 3.6-5.7 Feb 22, 2024 11:[address] [facility] COMPREHENSIVE METABOLIC PANEL PLASMA S pecimen Type: PLASMA Comment: LDL REF RANGE: OPTIMAL: <100 mg/dL BORDERLINE HIGH: 130-159 mg/dL LDL HIGH: 160-189 mg/dL VERY HIGH: >=190 TRIG REF RANGE: NORMAL <150 mg/dL BORDERLINE HIGH: 150-199 mg/dL TRIG HIGH: 200-499 mg/dL VERY HIGH: >=500 mg/dL Ordering Provider: CHRISTOPHER SULTANA Report Released Date/Time: Feb 10, 2024 04:39 PM Reporting Lab: [address] [address] Performing Lab: [address] [address] ALBUMIN 3.8 g/dL 3.2-4.6 ALKALINE PHOSPHATASE 68 U/L 46-116 ALT/SGPT 14 U/L 0-55 AST/SGOT 21 U/L 5-34 BUN 24 mg/dL H 9-23 CALCIUM 9.2 mg/dL 8.5-10.1 CREATININE 0.9 mg/dL 0.7-1.3 CO2 26 mmol/L 22-29 GLUCOSE 137 mg/dL H 74-100 PROTEIN, TOTAL 6.6 g/dL 6.4-8.3 SODIUM 144 mmol/L 136-145 CHLORIDE 111 mmol/L H 98-107 BILIRUBIN, TOTAL 0.5 mg/dL 0.2-1.2 POTASSIUM 4.6 mmol/L 3.5-5.1 ANION GAP 12.0 10-20 EGFR (CALCULATED) 87.0 mL/min Feb 22, 2024 11:[address] [facility] URINALYSIS URINE Specimen Type: URINE No comment entered. Ordering Provider: CHRISTOPHER SULTANA Report Released Date/Time: Feb 10, 2024 04:39 PM Reporting Lab: [place] [id number] Performing Lab: [place] [id number] SPECIFIC GRAVITY 1.030 H 1.016-1.022 URINE GLUCOSE Negative mg/dL Negative URINE PROTEIN 10 mg/dL Negative URINE PH 5.5 5.0-8.0 WBC/HPF 1 /[HPF] <=4 HYALINE CASTS 2-5 H Negative GRANULAR CASTS 1 /[LPF] H Negative RBC/HPF 3 /[HPF] <=4 NITRITE, URINE Negative Negative ESTERASE(WBC) Negative Negative URINE CLARITY Clear Clear URINE MUCUS Present H Negative URINE BILIRUBIN Negative mg/dL <=0.4 URINE BLOOD Negative mg/dL <0.05 UROBILINOGEN Negative mg/dL <=1 URINE KETONES Negative mg/dL <=9 URINE COLOR Yellow Feb 22, 2024 11:[address] [facility] CBC BLOOD Specimen Type: BLOOD No comment entered. Ordering Provider: CHRISTOPHER SULTANA Report Released Date/Time: Feb 10, 2024 04:39 PM Reporting Lab: [address] [address] Performing Lab: [place] [id number] WBC COUNT 6.3 10*3/uL 3.6-11.0 RBC COUNT 4.70 10*6/uL 4.47-5.83 HGB 14.8 g/dL 13.6-17.4 HCT 44.4 40.0-51.0 MCV 94.5 fL 80.0-96.0 MCH 31.5 pg H 27.0-31.0 MCHC 33.3 g/dL 31.5-36.5 PLT 271 10*3/uL 150-400 LYMPHS % 27.6 21.0-51.0 MONOCYTES % 9.7 H 4.0-8.0 NUCLEATED RBC/100WBC 0.1 /100{WBCs} None Established-None Established RDW 14.1 11.2-15.8 NEUTROPHIL % 57.4 54.0-78.0 EOSINOPHIL % 4.0 H 0.0-3.0 BASOPHIL % 1.3 0.0-3.0 ABSOLUTE LYMPHOCYTE COUNT 1.7 10*3/uL 0. 8-5.0 ABSOLUTE NEUTROPHIL COUNT 3.6 10*3/uL 1. 9-8.6 ABSOLUTE BASOPHIL COUNT 0.1 10*3/uL 0.0- 0.3 ABSOLUTE MONOCYTE COUNT 0.6 10*3/uL 0.1- 0.9 ABSOLUTE EOSINOPHIL COUNT 0.2 10*3/uL 0. 0-0.3 MPV 8.6 fL 7.4-11.4 Social History: Smoking Status (Most current) and Tobacco Use (All prior to encounter date) This section includes the most current, and the historical, smoking and tobacco- related health factors from the [place] facility where the Encounter took place. Current Smoking Status This section includes the most current smoking, or tobacco-related health factor, from the [place] facility where the Encounter took place. Date/Time Current Smoking Status Comment Facil ity Feb 22, 2024 01:00 PM VA-TOBACCO NEVER USED [facility] Tobacco Use History This section includes a history of the smoking, or tobacco-related health factors, that were collected on or before the date of the Encounter. The data comes from the [place] facility where the Encounter took place. Date/Time Smoking Status/Tobacco Use Comment F acility Jan 12, 2023 01:00 PM VA-TOBACCO NEVER USED [facility] Jan 17, 2022 01:00 PM VA-TOBACCO FORMER USER [facility] Jan 17, 2022 01:00 PM VA-TOBACCO QUIT 15 YRS OR MORE [facility] Oct 29, 2020 09:00 AM VA-TOBACCO FORMER USER [facility] Oct 29, 2020 09:00 AM VA-TOBACCO QUIT 15 YRS OR MORE [facility] Mar 25, 2019 11:10 AM VA-TOBACCO NEVER USED [facility] Mar 23, 2018 09:40 AM VA-TOBACCO NEVER USED [facility] Mar 08, 2008 07:53 AM LIFETIME NON-USER OF TOBACCO [facility] Advance Directives: All historical and current Section Date Range: From patient's date of to the date document was created. This section includes ALL of a patient's completed or amended [place] Advance and Rescinded Directives. The entries below indicate that a directive exists for the patient, but an actual copy is not included with this document. The data comes from all [place] facilities. Date Advance Directives Provider Source May 21, 2023 ADVANCE DIRECTIVE NICOLE DANIELLE [facility] May 20, 2023 ADVANCE DIRECTIVE DISCUSSION JAH DANIELLE [facility] Mar 15, 2019 ADVANCE DIRECTIVE DISCUSSION PRICILLA-JEANNETTE CARDONA [facility] Oct 08, [address] SB HAAS [facility] Aug 31, 2012 ADVANCE DIRECTIVE DISCUSSION LAW JUSTIN SHARIF [facility] May 17, 2009 RESCINDED ADVANCE DIRECTIVE BREE ALEXIS [facility] Jan 31, 2009 ADVANCE DIRECTIVE DISCUSSION JEANNETTE T[facility]LOR [facility] Encounter Notes: All associated encounter notes This section contains the clinical notes associated to the Encounter. Date/Time Encounter Note(s) Provider Source Feb 23, 2024 06:37 AM DISCHARGE NOTE: LOCAL TITLE: AFTER VISIT SUMMARY NOTE STANDARD TITLE: DISCHARGE NOTE DICT DATE: FEB 23, 2024@06:37:03 ENTRY DATE: FEB 23, 2024@06:37:03 DICTATED BY: KASI MONIQUE EXP COSIGNER: URGENCY: STATUS: COMPLETED If the patient did not receive a copy of the after-visit summary or had a virtual visit, a copy of the after-visit summary will be mailed. The after-visit summary includes information pertaining to the patient's encounter, including diagnoses, vital signs, medications, and new orders, as well as a list of any any upcoming appointments and information regarding the patient's ongoing care. The patient's medications were reviewed with the patient by the provider and were provided to the patient as an updated list of medications. The patient was instructed to inform the provider of any medication changes or discrepancies that were noted. Otherwise, the patient was instructed to continue the medications as prescribed. A copy of the after-visit summary provided to the patient is available in [employer]. SCANNED DOCUMENT SIGNATURE NOT REQUIRED Electronically Filed: 02/23/2024 by: KASI PEREZ [facility] Feb 22, 2024 01:38 PM INTERNAL MEDICINE OUTPATIENT NOTE: LOCAL TITLE: PRIMARY CARE OUTPATIENT NOTE (T) STANDARD TITLE: INTERNAL MEDICINE OUTPATIENT NOTE DATE OF NOTE: FEB 22, 2024@13:38 ENTRY DATE: FEB 22, 2024@13:38:48 AUTHOR: CHRISTOPHER SULTANA EXP COSIGNER: URGENCY: STATUS: COMPLETED In-person Note 79yo [place] Reason for Visit: 79 yo male with hx of depression, massive PE (March 2023) is here for rotuine follow up. Pt is with his daughter, Leila. Pt states that he is doing ok. States he has chronic post-nasal drip. using NEilMed rinse, but drainage persists. Uses O2 at hs. Denies significant sneezing or other allergy sx. Also c/o fungus in his toenails. and c/o he nicked his toe when he was trimming his nails last night. Bled significantly d/t Eliquis. requesting to see podiatry. Leila brings in records from non-[facility] cardiology/vascular recommending pt have any necessary cancer screening, have 6 minute walk test (which it sounds like they did already) and have echo done d/t dx of large patent foramen ovale - dx when he had the PE. Pt has not been taking mirtazapine. States he stopped it several months ago. Daughter asking if it would be best for him to take it continuously instead of 6 mos on, [address] wants to take it. 20 Active Problems PROBLEM LAST MOD PROVIDER Exposure to potentially hazardous substance 10/14/2023 MINGO CASILLAS H/O: pulmonary embolus 05/19/2023 HAMIDA SULTANA Obstructive sleep apnea of adult 12/28/2018 DICKDENZEL Seasonal affective disorder 11/22/2019 YANG LOPEZ 1. MDD with SAD 2. Depression worsens late winter, improves by late summer 3. 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/22/2012 MELCHOR DIAZ Sensorineural hearing loss, asymmetrical 09/20/2012 JASMYN SEAY Dysphonia (ICD-9-CM 784.42) 07/30/2011 CHRISTOPHER SULTANA Personal History of Venous Thrombosis and 04/16/2010 CHRISTOPHER SULTANA Embolism (ICD-9-CM V12.51) Facial Fracture (ICD-9-CM 802.8) 03/18/2010 CHRISTOPHER SULTANA Closed fracture of fourth cervical vertebra 03/18/2010 CHRISTOPHER SULTANA (ICD-9-CM 805.04) Closed fracture of dorsal (thoracic) vertebra 03/18/2010 CHRISTOPHER SULTANA without mention of spinal cord inj 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) 06/18/2009 CHRISTOPHER SULTANA Enlarged prostate (SNOMED CT 699186837) 08/01/2015 CHRISTOPHER SULTANA Anxiety (SNOMED CT 93584853) 12/24/2017 [place] Atrial fibrillation (SNOMED CT 05793637) 07/07/2018 CHRISTOPHER SULTANA Meniere's Disease * (ICD-9-CM 386.00/386.19) 03/08/2008 CHRISTOPHER SULTANA Major depression (SNOMED CT 074298081) 08/01/2015 CHRISTOPHER SULTANA Thoracic sprain (ICD-9-CM 847.1) 03/08/2008 CHRISTOPHER SULTANA REVIEW OF SYSTEMS: PATIENT ALLERGIES DETAILED ALLERGIES/ADVERSE REACTIONS No Known Allergies AMRS - MEDS (REC SUCCINCT) Active and Recently Inpatient, Outpatient and Clinic Medications (including Supplies): Active Outpatient Medications Status 1) APIXABAN 5MG TAB TAKE ONE TABLET BY MOUTH TWICE A DAY ACTIVE FOR LUNG EMBOLISM DIRECTED BY THE [facility] ([phone] [id number]) Inactive Outpatient Medications Status 1) CHOLECALCIF 50MCG (D3-2,000UNIT) TAB TAKE ONE TABLET BY MOUTH EVERY DAY FOR VITAMIN D DEFICIENCY 2 Total Medications PHYSICAL EXAM: Vital Signs: T: 97.5 F [36.4 C] (02/22/2024 12:59) P: 72 (02/22/2024 12:59) R: 18 (02/22/2024 12:59) BP: 136/79 (02/22/2024 12:59) Pain: 0 (02/22/2024 12:59) Height: 71 in [180.3 cm] (01/17/2022 12:38) Weight: 215.1 lb [97.57 kg] (02/22/2024 12:59) Pulse Ox: 91% (07/06/2023 09:30) PT alert, NAD. HRRR, LCTAB. no peripheral edema. toenails thickened, yellow and crumbling. middle toe of left foot with dried/crusted blood. (+) deformity of toes. labs drawn today. ASSESSMENT/PLAN: Hx massive PE - cont apixaban rhinitis - add fluticaosne hx depression - resume mirtazapine. encouraged pt to take year round instead of stopping and starting as he tends to do. CC consult placed for echocardiogram HEALTH MAINTENANCE/CLINICAL REMINDERS: MEDICATION RECONCILIATION Medication Reconciliation report reviewed and discussed with patient/caregiver. VA prescription medications, non-VA prescription medications, OTC and herbal medications reviewed: Patient/caregiver verifies that the list is complete and accurate and voices understanding. FOLLOW-UP: recheck 6 mos. labs prior. call prn. I am the Attending Physician. TOTAL TIME SPENT: Spent 35 minutes in care of this patient today including review of records, exam, and placing orders. /john/ CHRISTOPHER SULTANA PHYSICIAN Signed: 02/22/2024 14:06 CHRISTOPHER SULTANA [facility] Feb 22, 2024 12:59 PM PRIMARY CARE NURSI NG NOTE: LOCAL TITLE: OUTPATIENT NURSING INTAKE NOTE (T) STANDARD TITLE: PRIMARY CARE NURSING NOTE DATE OF NOTE: FEB 22, 2024@12:59 ENTRY DATE: FEB 22, 2024@12:59:20 AUTHOR: KASI MONIQUE COSIGNER: URGENCY: STATUS: COMPLETED Hemoglobin A1C Results: Collection DT Specimen Test Name Result Units Ref Range 01/05/2023 09:42 BLOOD HEMOGLOBIN A1C 5.6 % 3.6 - 5.7 Comment: Values obtained from A1C measurements can vary. For typical A1C Comment: assays, a reported value of 7.0 could actually be between 6.72 and Comment: 7.28 if measured by a reference method. A reported value of 9.0 Comment: could actually be between 8.73 and 9.27. Ref: Comment: http://www.ngsp.org/CAPdata. asp 01/01/2021 10:39 BLOOD HEMOGLOBIN A1C 5.7 % 3.6 - 5.7 09/15/2019 13:29 BLOOD HEMOGLOBIN A1C 6.0 H % 3.6 - 5.7 Review Allergies Allergies reviewed and updated per protocol. ALLERGIES/ADVERSE REACTIONS No Known Allergies New temperature reading was documented at this visit. 97.5 F (36.4 C) Pulse reading was documented at this visit. 72 Respiration reading was documented at this visit. 18 New blood pressure reading was documented at this visit. 136/79 Pain scale was documented at this visit. 0 A new weight was documented at this visit. 215.1 lb (97.8 kg) Click here to document a new pulse ox. 99 MEDICATION LIST REVIEW REPORT Patient states no change in documented OTC/Herbals at this visit. 1. Has the patient been feeling sad or distressed? No 2. Has the patient been having personal or family problems? No 3. Has the patient been experiencing worry and/or stress? No 4. Has the patient been having problems with drugs and/or alcohol? No 5. [facility] pocket card was provided to patient. No/patient declined [facility] ([facility] [place] [employer]) What matters most to you? Comment: going to [place] seeing [facility] Clinical Reminders Activity COVID-19 Immunization: Depression Screening: Perform PHQ-2 A PHQ-2 screen was performed. The score was 1 which is a negative screen for depression. Over the past two weeks, how often have you been bothered by the following problems? 1. Little interest or pleasure in doing things Several days 2. Feeling down, depressed, or hopeless Not at all Fall Screen: Patient was asked if he/she has had any falls within the past 12 months. Patient reports one fall in past 12 months without injury. Teaching Method: Education Topic: Falls Risk Tobacco Use Screening: The patient has never used tobacco. Foot Exam: PAVE: A complete foot check was completed at this encounter. Visual exam results: Abnormal Observations: Thickened toenails Pedal Pulses exam results: Normal/Present Comment: diminshed on the right foot Sensation exam results: Normal/Intact to monofilament The following risk level was identified for this patient: = +POD RISK SCORE+ --LEVEL 0 - (NORMAL RISK) Normal sensation and circulation No deformity No ulceration or history of amputation -POD RISK SCORE- 1. Explained the importance of daily foot checks. Explained that loss of sensation leads to callouses. Callouses break down, which result in ulcers that may lead to gangrene and amputation. 2. Stressed the importance of daily foot hygiene. Warm (not hot) bathing of the feet, complete drying and thorough inspection for changes in the condition of the skin constitute daily foot care. Demonstrated how to do a thorough foot check. 3. Emphasized the use of clean, non-restrictive socks/stockings and well fitting shoes. 4. Stressed the importance of immediate follow-up of any foot injuries or ulcers. Explained that he/she should be non-weight bearing whenever there are lesions on the foot, to prevent cellular damage. Level of Understanding: Good /john/ KASI MONIQUE REGISTERED NURSE Signed: 02/22/2024 13:12 KASI MONIQUE [facility]
--- OUTSIDE RECORDS SUMMARY | 2024-08-29 10:30 | XMS_ITS | Encounter Summary ---
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 ZOSTER group Date Documented: 08/29/24 14:36 Homelessness/Food Insecurity Screen: In the past 2 months, have you been living in stable housing that you own, rent, or stay in as part of a household? Yes - Living in stable housing. Are you worried or concerned that in the next 2 months you may NOT have stable housing that you own, rent, or stay in as part of a household? No - Not worried about housing near future [facility] reports the following: Within the past 12 months, you worried whether your food would run out before you got money to buy more. Never true Within the past 12 months, the food you bought just didn't last and you didn't have money to get more. Never true Influenza Immunization: Deferral / Refusal The patient declines to receive the recommended dose of seasonal influenza vaccine. Immunization: INFLUENZA, UNSPECIFIED FORMULATION Refusal Reason: PATIENT DECISION Patient refuses all immunization(s) in the FLU group Date Documented: 08/29/24 14:37 Learning Assessment: LEARNING NEEDS ASSESSMENT: I. Learning Preference: Visual Hearing Hands-on Written (in united [place] language) Group Class Individual II. Barriers to Learning: Hearing Limitations : NISQUALLY III. Social Influences Related to Educational Needs: No social barriers to learning IV. Readiness to Learn: Patient Appears ready to learn. Pain, Brief Evaluation: Type of pain: New Location: Neck Intensity: Currently: 5 Usually: 0 Description of Pain: Aching Sore Patient Education Documentation: LEARNING NEEDS ASSESSMENT: Learning Preference: Visual Hearing Hands-on Written (in united [place] language) Group Class Individual Barriers to Learning: Hearing Limitations : NISQUALLY Social Influences Related to Educational Needs: No social barriers to learning Pneumococcal PPSV23 (Pneumovax): The patient declines to receive the recommended dose of PPSV23 vaccine. Immunization: PNEUMOCOCCAL POLYSACCHARIDE PPV23 Refusal Reason: PATIENT DECISION Patient refuses all immunization(s) in the PneumoPPV group Date Documented: 08/29/24 14:40 RSV Immunization: Respiratory Syncytial Virus (RSV) Vaccine: Refused [email or web address] (Abrysvo, RSVpreF vaccine). Immunization: RSV, BIVALENT, PROTEIN SUBUNIT RSVPREF, DILUENT RECONSTITUTED, 0.5 ML, PF Refusal Reason: PATIENT DECISION Patient refuses all immunization(s) in the RSV group Date Documented: 08/29/24 14:41 Suicide Screen: C-SSRS Screening [place] Suicide Severity Rating Scale (C-SSRS) screener 1. Over the past month, have you wished you were or wished you could go to sleep and not wake up? No 2. Over the past month, have you had any actual thoughts of killing yourself? No 3. Over the past month, have you been thinking about how you might do this? Response not required due to responses to other questions. 4. Over the past month, have you had these thoughts and had some intention of acting on them? Response not required due to responses to other questions. 5. Over the past month, have you started to work out or worked out the details of how to kill yourself? Response not required due to responses to other questions. 6. If yes, at any time in the past month did you intend to carry out this plan? Response not required due to responses to other questions. 7. In your lifetime, have you ever done anything, started to do anything, or prepared to do anything to end your life (for example, collected pills, obtained a gun, gave away valuables, went to the roof but didn't jump)? No 8. If YES, was this within the past 3 months? Response not required due to responses to other questions. /john/ THIERRY NICHOLAS LICENSED PRACTICAL NURSE Signed: 08/29/2024 14:41 THIERRY NICHOLAS [facility]
--- OUTSIDE RECORDS SUMMARY | 2024-10-19 11:55 | XMS_ITS ---
Author Organization [facility] in [place] Address [address] [place] [address] Care Team Providers Care Group Contract Analyst Name Role Phone Kwesi, Mulu Primary Care Provider Juancho Dunn [phone] REASON FOR VISIT Last Seen Encounters Encounter Location Date Provider Diagnosis Pulmonary Medicine [address] [address] 10/19/2024 Juancho Huertas Plan Of Treatment No Information Progress Notes * James LARA DDOB:[birth year] (79 yo M)Acc No.[id number]:10/19/2024 Patient: James FOFANA :1945 A ge:79 Y S ex:Male Address:[address] [place] [address] [address], [place], [address] * true * Date: Generated for Suziei nica/Fakerryg/eTransmitting on: 0 02/05/2025 03:34 PM EDT
--- OUTSIDE RECORDS SUMMARY | 2025-02-05 10:33 | XMS_ITS | Continuity of Care Document ---
Author Name [facility] Organization [facility] Care Team Providers Care Market Researcher Name Role Phone [facility] Unavailable Unavailable Problems Combined list of problems from Department of Defense and Veterans Affairs facilities. It does not include entries that were removed or entered in error. 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 [facility] Atrial fibrillation (SNOMED CT 08453893) Active Condition [facility] Closed fracture of dorsal (thoracic) vertebra without mention of spinal cord inj Active Condition [facility] Closed fracture of fourth cervical vertebra (ICD-9-CM 805.04) Active Condition [facility] Dysphonia (ICD-9-CM 784.42) Active Condition [facility] Enlarged prostate (SNOMED CT 291548557) Active Condition [facility] Exposure to Potentially Hazardous Substance (SCT 388546824773863) Active Condition [facility] Facial Fracture (ICD-9-CM 802.8) Active Condition [facility] Falciparum malaria (SNOMED CT 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) Active Condition [facility] H/O: gallbladder disease (SNOMED CT 510751503) Active Condition Oct 20, 2012 Entered By: CHRISTOPHER SULTANA Comment: cholecystectomy October 2012 [facility] H/O: pulmonary embolus Active Condition [facility] 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 [facility] Major depression (SNOMED CT 926732779) Active Condition [facility] Meniere's Disease * (ICD-9-CM 386.00/386.19) Active Condition [facility] Obstructive sleep apnea of adult Active Condition [facility] 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) Active Condition [facility] Personal History of Venous Thrombosis and Embolism (ICD-9-CM V12.51) Active Condition [facility] Seasonal affective disorder Active Condition Mar 02, 2015 Entered By: HIGINIO SALDANA Comment: MDD with SADAug 2014 Entered By: HIGINIO SALDANA Comment: Depression worsens late winter, improves by late 2014 Entered By: HIGINIO SALDANA Comment: SAD light from April through September [facility] Thoracic sprain (ICD-9-CM 847.1) Active Condition [facility] Diagnosis: ICD-10-CM Z79.01 MCC (current) use of anticoagulants Active Diagnosis [facility] Diagnosis: ICD-10-CM I48.91 Unspecified atrial fibrillation Active Diagnosis [facility] Diagnosis: ICD-10-CM Z51.81 Encounter for therapeutic drug level monitoring [facility] Diagnosis: ICD-10-CM Z71.89 Other specified counseling Active Diagnosis [facility] Diagnosis: ICD-10-CM 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 Active Diagnosis [facility] Diagnosis: ICD-10-CM Z86.711 Personal history of pulmonary embolism Active Diagnosis [facility] Medications Combined list of outpatient medications from Department of Defense and Veterans Affairs facilities.Medications provided include 1) outpatient medications from the last 15 months, and 2) patient-reported medications. Medication Details Route Status Patient Instructions Prescription Expires Prescription Number Last Dispense Date Ordering Provider Order Date Order Qty Source APIXABAN 5MG TAB TAKE ONE TABLET BY MOUTH TWICE A DAY FOR LUNG EMBOLISM DIRECTED BY THE [facility] EXT.6106 7) ORAL ACTIVE 06/21/2025 [id number] BRENDAN RICHMOND 2024 180 [facility] APIXABAN 5MG TAB TAKE ONE TABLET BY MOUTH TWICE A DAY FOR LUNG EMBOLISM DIRECTED BY THE [facility] EXT.6106 7) ORAL DISCONT INUED 06/19/2025 [id number] 4 JAYESH SAEED 2023 60 [facility] APIXABAN 5MG TAB TAKE ONE TABLET BY MOUTH TWICE A DAY FOR LUNG EMBOLISM DIRECTED BY THE [facility] EXT.6104 7) ORAL DISCONT INUED 10/29/2024 [id number] 4 Denis CULVER 2023 60 [facility] CHOLECALCIF MICHEL 50MCG (2,000UNIT) TAB TAKE ONE TABLET BY MOUTH EVERY DAY FOR VITAMIN D DEFICIEN CY ORAL 01/13/2024 [id number] KRUPA SULTANA 2022 100 [facility] FLUTICASONE PROPIONATE 50MCG/SPRAY SOLN,NASAL, 16GM USE 2 SPRAYS IN EACH NOSTRIL EVERY DAY FOR RUNNY NOSE NASAL ACTIVE 02/22/2025 [id number] 4 KRUPA SULTANA 2023 3 [facility] MIRTAZAPINE 15MG TAB TAKE ONE TABLET BY MOUTH AT BEDTIME FOR MAJOR DEPRESSI VE DISORDER ORAL ACTIVE 02/22/2025 [id number] 5 KRUPA SULTANA 2023 90 [facility] SINUS RINSE NEILMED REGULAR KIT USE 1 KIT EACH NOSTRIL EVERY DAY FOR DRYNESS OF THE NOSE . MIX WITH 8 OZS OF WARM DISTILLE D WATER DIRECTED . REPLACE BOTTLE EVERY 90 DAYS NASAL ACTIVE 08/30/2025 [id number] 5 KRUPA SULTANA 2024 1 [facility] Immunizations Combined list of available immunizations from the Department of Defense and Veterans Affairs facilities. 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 Status Comments Source INFLUENZA, UNSPECIFIED FORMULATION 2022 88 complet ed HISTORICA L INFORMATI ON [facility] 115 complet ed [facility] COVID-19 (MODERNA), MRNA, LNP-S, PF, 100 MCG/0.5ML DOSE OR 50 MCG/0.25ML DOSE 3 2020 207 complet ed HISTORICA L INFORMATI ON - FROM OTHER [facility], [facility] COVID-19 (MODERNA), MRNA, LNP-S, PF, 100 MCG/0.5ML DOSE OR 50 MCG/0.25ML DOSE 2 2020 207 complet ed HISTORICA L INFORMATI ON - FROM OTHER REGISTRY, [facility] COVID-19 (MODERNA), MRNA, LNP-S, PF, 100 MCG/0.5ML DOSE OR 50 MCG/0.25ML DOSE 1 2020 207 complet ed HISTORICA L INFORMATI ON - FROM OTHER REGISTRY, [facility] PNEUMOCOCCAL CONJUGATE PCV 13 2017 133 complet ed [facility] HEP A-HEP B 2013 104 complet ed [facility] INFLUENZA, SEASONAL, INJECTABLE, PRESERVATIVE FREE 2013 140 complet ed [facility] INFLUENZA, UNSPECIFIED FORMULATION 2013 88 complet ed [facility] HEP A-HEP B 2013 104 complet ed [facility] INFLUENZA, UNSPECIFIED FORMULATION 2013 88 complet ed [facility] DTAP, UNSPECIFIED FORMULATION 2012 107 complet ed [facility] HEP A-HEP B 2012 104 complet ed [facility] MENINGOCOCCAL ACWY, UNSPECIFIED FORMULATION 2012 108 complet ed [facility] PNEUMOCOCCAL, UNSPECIFIED FORMULATION 2008 109 complet ed [facility] Results Combined list of recent chemistry, hematology and other laboratory results from Department of Defense and Veterans Affairs, ranging from 15 months to all on record, depending upon the facility. Order Name Results Value Reference Range Date Interpretation Specimen Comments Source CBC LEUKOCYTES [#/VOLUME] IN BLOOD BY AUTOMATED COUNT 10.0 10*3/uL 3.6 - 11.0 08/19 Specimen Type: BLOOD No comment entered. Ordering Provider: CHRISTOPHER SULTANA Report Released Date/Time: Aug 19, 2024 08:28 AM Reporting Lab: [address] [address] Performing Lab: [address] [address] [facility] CBC ERYTHROCYT ES [#/VOLUME] IN BLOOD BY AUTOMATED COUNT 4.96 10*6/uL 4.47 - 5.83 08/19 Specimen Type: BLOOD No comment entered. Ordering Provider: CHRISTOPHER SULTANA Report Released Date/Time: Aug 19, 2024 08:28 AM Reporting Lab: [address] [address] Performing Lab: [address] [address] [facility] CBC HEMOGLOBIN [MASS/VOLU ME] IN BLOOD 15.7 g/dL 13.6 - 17.4 08/19 Specimen Type: BLOOD No comment entered. Ordering Provider: CHRISTOPHER SULTANA Report Released Date/Time: Aug 19, 2024 08:28 AM Reporting Lab: [address] [address] Performing Lab: [address] [address] [facility] CBC HEMATOCRIT [VOLUME FRACTION] OF BLOOD BY AUTOMATED COUNT 46.5 40.0 - 51.0 08/19 Specimen Type: BLOOD No comment entered. Ordering Provider: CHRISTOPHER SULTANA Report Released Date/Time: Aug 19, 2024 08:28 AM Reporting Lab: [address] [address] Performing Lab: [address] [address] [facility] CBC MCV [ENTITIC VOLUME] BY AUTOMATED COUNT 93.9 fL 80.0 - 96.0 08/19 Specimen Type: BLOOD No comment entered. Ordering Provider: CHRISTOPHER SULTANA Report Released Date/Time: Aug 19, 2024 08:28 AM Reporting Lab: [address] [address] Performing Lab: [place] [phone] [facility] CBC MCH [ENTITIC MASS] BY AUTOMATED COUNT 31.8 pg 27.0 - 31.0 08/19 H Specimen Type: BLOOD No comment entered. Ordering Provider: CHRISTOPHER SULTANA Report Released Date/Time: Aug 19, 2024 08:28 AM Reporting Lab: [address] [address] Performing Lab: [address] [address] [facility] CBC MCHC [MASS/VOLU ME] BY AUTOMATED COUNT 33.8 g/dL 31.5 - 36.5 08/19 Specimen Type: BLOOD No comment entered. Ordering Provider: CHRISTOPHER SULTANA Report Released Date/Time: Aug 19, 2024 08:28 AM Reporting Lab: [address] [address] Performing Lab: [address] [address] [facility] CBC PLATELETS [#/VOLUME] IN BLOOD BY AUTOMATED COUNT 331 10*3/uL 150 - 400 08/19 Specimen Type: BLOOD No comment entered. Ordering Provider: CHRISTOPHER SULTANA Report Released Date/Time: Aug 19, 2024 08:28 AM Reporting Lab: [address] [address] Performing Lab: [place] [phone] [facility] CBC LYMPHOCYTE S/100 LEUKOCYTES IN BLOOD BY AUTOMATED COUNT 22.8 21.0 - 51.0 08/19 Specimen Type: BLOOD No comment entered. Ordering Provider: CHRISTOPHER SULTANA Report Released Date/Time: Aug 19, 2024 08:28 AM Reporting Lab: [address] [address] Performing Lab: [address] [address] [facility] CBC MONOCYTES/ 100 LEUKOCYTES IN BLOOD BY AUTOMATED COUNT 7.4 4.0 - 8.0 08/19 Specimen Type: BLOOD No comment entered. Ordering Provider: CHRISTOPHER SULTANA Report Released Date/Time: Aug 19, 2024 08:28 AM Reporting Lab: [address] [address] Performing Lab: [address] [address] [facility] CBC NUCLEATED ERYTHROCYT ES/100 LEUKOCYTES [RATIO] IN BLOOD BY MANUAL COUNT 0.1 /100{WBC s} 08/19 Specimen Type: BLOOD No comment entered. Ordering Provider: CHRISTOPHER SULTANA Report Released Date/Time: Aug 19, 2024 08:28 AM Reporting Lab: [address] [address] Performing Lab: [address] [address] [facility] CBC ERYTHROCYT E DISTRIBUTI ON WIDTH [RATIO] BY AUTOMATED COUNT 13.6 11.2 - 15.8 08/19 Specimen Type: BLOOD No comment entered. Ordering Provider: CHRISTOPHER SULTANA Report Released Date/Time: Aug 19, 2024 08:28 AM Reporting Lab: [address] [address] Performing Lab: [address] [address] [facility] CBC NEUTROPHIL S/100 LEUKOCYTES IN BLOOD BY AUTOMATED COUNT 67.4 54.0 - 78.0 08/19 Specimen Type: BLOOD No comment entered. Ordering Provider: CHRISTOPHER SULTANA Report Released Date/Time: Aug 19, 2024 08:28 AM Reporting Lab: [address] [address] Performing Lab: [place] [phone] [facility] CBC EOSINOPHIL S/100 LEUKOCYTES IN BLOOD BY AUTOMATED COUNT 1.4 0.0 - 3.0 08/19 Specimen Type: BLOOD No comment entered. Ordering Provider: CHRISTOPHER SULTANA Report Released Date/Time: Aug 19, 2024 08:28 AM Reporting Lab: [address] [address] Performing Lab: [place] [phone] [facility] CBC BASOPHILS/ 100 LEUKOCYTES IN BLOOD BY AUTOMATED COUNT 1.0 0.0 - 3.0 08/19 Specimen Type: BLOOD No comment entered. Ordering Provider: CHRISTOPHER SULTANA Report Released Date/Time: Aug 19, 2024 08:28 AM Reporting Lab: [address] [address] Performing Lab: [address] [address] [facility] CBC LYMPHOCYTE S [#/VOLUME] IN BLOOD BY AUTOMATED COUNT 2.3 10*3/uL 0.8 - 5.0 08/19 Specimen Type: BLOOD No comment entered. Ordering Provider: CHRISTOPHER SULTANA Report Released Date/Time: Aug 19, 2024 08:28 AM Reporting Lab: [address] [address] Performing Lab: [address] [address] [facility] CBC NEUTROPHIL S [#/VOLUME] IN BLOOD 6.7 10*3/uL 1.9 - 8.6 08/19 Specimen Type: BLOOD No comment entered. Ordering Provider: CHRISTOPHER SULTANA Report Released Date/Time: Aug 19, 2024 08:28 AM Reporting Lab: [address] [address] Performing Lab: [place] [phone] [facility] CBC BASOPHILS [#/VOLUME] IN BLOOD BY AUTOMATED COUNT 0.1 10*3/uL 0.0 - 0.3 08/19 Specimen Type: BLOOD No comment entered. Ordering Provider: CHRISTOPHER SULTANA Report Released Date/Time: Aug 19, 2024 08:28 AM Reporting Lab: [place] [phone] Performing Lab: [place] [phone] [facility] CBC MONOCYTES [#/VOLUME] IN BLOOD BY AUTOMATED COUNT 0.7 10*3/uL 0.1 - 0.9 08/19 Specimen Type: BLOOD No comment entered. Ordering Provider: CHRISTOPHER SULTANA Report Released Date/Time: Aug 19, 2024 08:28 AM Reporting Lab: [address] [address] Performing Lab: [place] [phone] [facility] CBC EOSINOPHIL S [#/VOLUME] IN BLOOD BY AUTOMATED COUNT 0.1 10*3/uL 0.0 - 0.3 08/19 Specimen Type: BLOOD No comment entered. Ordering Provider: CHRISTOPHER SULTANA Report Released Date/Time: Aug 19, 2024 08:28 AM Reporting Lab: [address] [address] Performing Lab: [place] [phone] [facility] CBC PLATELET MEAN VOLUME [ENTITIC VOLUME] IN BLOOD BY AUTOMATED COUNT 8.5 fL 7.4 - 11.4 08/19 Specimen Type: BLOOD No comment entered. Ordering Provider: CHRISTOPHER SULTANA Report Released Date/Time: Aug 19, 2024 08:28 AM Reporting Lab: [address] [address] Performing Lab: [address] [address] [facility] CREATINI NE (W EGFR) CREATININE [MASS/VOLU ME] IN SERUM OR PLASMA 0.9 mg/dL 0.7 - 1.3 08/19 Specimen Type: PLASMA Comment: DLDL REF RANGE: [...] risk factor for heart disease. Ordering Provider: LOVE RICHMOND Report Released Date/Time: Jun 20, 2024 12:17 PM Reporting Lab: [address] [address] Performing Lab: [address] [address] [facility] CREATINI NE (W EGFR) GLOMERULAR FILTRATION RATE/1.73 SQ M.PREDICTE D [VOLUME RATE/AREA] IN SERUM, PLASMA OR BLOOD BY CREATININE -BASED FORMULA (CKD-EPI 2020) 87.0 mL/min 08/19 Specimen Type: PLASMA Comment: DLDL REF RANGE: [...] risk factor for heart disease. Ordering Provider: LOVE RICHMOND Report Released Date/Time: Jun 20, 2024 12:17 PM Reporting Lab: [address] [address] Performing Lab: [address] [address] [facility] HEMOGLOB IN A1C HEMOGLOBIN A1C/HEMOGL OBIN.TOTAL IN BLOOD 5.7 3.6 - 5.7 08/19 Specimen Type: BLOOD Comment: Values obtained from A1C measurement s can vary. For typical A1C assays, a reported value of 7.0 could actually be between 6.72 and 7.28 if measured by a reference method. A reported value of 9.0 could actually be between 8.73 and 9.27. Ref: http://www. ngsp.org/[place] Pdata.asp Ordering Provider: CHRISTOPHER SULTANA Report Released Date/Time: Aug 19, 2024 08:28 AM Reporting Lab: [address] [address] Performing Lab: [address] [address] [facility] LIPID PROFILE CHOLESTERO L [MASS/VOLU ME] IN SERUM OR PLASMA 215 mg/dL <199 - 199 08/19 H Specimen Type: PLASMA Comment: DLDL REF RANGE: [...] Aug 19, 2024 08:28 AM Reporting Lab: [address] [address] Performing Lab: [place] [phone] [facility] LIPID PROFILE CHOLESTERO L IN LDL [MASS/VOLU ME] IN SERUM OR PLASMA BY DIRECT ASSAY 170 mg/dL 0 - 99 08/19 H Specimen Type: PLASMA Comment: DLDL REF RANGE: [...] Aug 19, 2024 08:28 AM Reporting Lab: [address] [address] Performing Lab: [place] [phone] [facility] LIPID PROFILE CHOLESTERO L IN HDL [MASS/VOLU ME] IN SERUM OR PLASMA 43 mg/dL 40 08/19 Specimen Type: PLASMA Comment: DLDL REF RANGE: [...] Aug 19, 2024 08:28 AM Reporting Lab: [address] [address] Performing Lab: [address] [address] [facility] LIPID PROFILE TRIGLYCERI DE [MASS/VOLU ME] IN SERUM OR PLASMA 218 mg/dL <149 - 149 08/19 H Specimen Type: PLASMA Comment: DLDL REF RANGE: [...] Aug 19, 2024 08:28 AM Reporting Lab: [place] [phone] Performing Lab: [place] [phone] [facility] TSH THYROTROPI N [UNITS/VOL UME] IN SERUM OR PLASMA BY DETECTION LIMIT <= 0.005 MIU/L 3.056 u[IU]/mL 0.350 - 4.940 08/19 Specimen Type: PLASMA Comment: DLDL REF RANGE: [...] Aug 19, 2024 08:28 AM Reporting Lab: [address] [address] Performing Lab: [place] [phone] [facility] COMPREHE NSIVE METABOLI C PANEL ALBUMIN [MASS/VOLU ME] IN SERUM OR PLASMA 4.1 g/dL 3.5 - 4.8 08/19 Specimen Type: PLASMA Comment: DLDL REF RANGE: [...] Aug 19, 2024 08:28 AM Reporting Lab: [address] [address] Performing Lab: [place] [phone] [facility] COMPREHE NSIVE METABOLI C PANEL ALKALINE PHOSPHATAS E [ENZYMATIC ACTIVITY/V OLUME] IN SERUM OR PLASMA 81 U/L 40 - 150 08/19 Specimen Type: PLASMA Comment: DLDL REF RANGE: [...] Aug 19, 2024 08:28 AM Reporting Lab: [address] [address] Performing Lab: [address] [address] [facility] COMPREHE NSIVE METABOLI C PANEL ALANINE AMINOTRANS FERASE [ENZYMATIC ACTIVITY/V OLUME] IN SERUM OR PLASMA 14 U/L <55 - 55 08/19 Specimen Type: PLASMA Comment: DLDL REF RANGE: [...] Aug 19, 2024 08:28 AM Reporting Lab: [address] [address] Performing Lab: [place] [phone] [facility] COMPREHE NSIVE METABOLI C PANEL ASPARTATE AMINOTRANS FERASE [ENZYMATIC ACTIVITY/V OLUME] IN SERUM OR PLASMA 26 U/L 10 - 40 08/19 Specimen Type: PLASMA Comment: DLDL REF RANGE: [...] Aug 19, 2024 08:28 AM Reporting Lab: [place] [phone] Performing Lab: [place] [phone] [facility] COMPREHE NSIVE METABOLI C PANEL UREA NITROGEN [MASS/VOLU ME] IN SERUM OR PLASMA 20.0 mg/dL 8.4 - 25.7 08/19 Specimen Type: PLASMA Comment: DLDL REF RANGE: [...] Aug 19, 2024 08:28 AM Reporting Lab: [address] [address] Performing Lab: [place] [phone] [facility] COMPREHE NSIVE METABOLI C PANEL CALCIUM [MASS/VOLU ME] IN SERUM OR PLASMA 9.6 mg/dL 8.6 - 10.3 08/19 Specimen Type: PLASMA Comment: DLDL REF RANGE: [...] Aug 19, 2024 08:28 AM Reporting Lab: [address] [address] Performing Lab: [address] [address] [facility] COMPREHE NSIVE METABOLI C PANEL CREATININE [MASS/VOLU ME] IN SERUM OR PLASMA 0.9 mg/dL 0.7 - 1.3 08/19 Specimen Type: PLASMA Comment: DLDL REF RANGE: [...] Aug 19, 2024 08:28 AM Reporting Lab: [place] [phone] Performing Lab: [place] [phone] [facility] COMPREHE NSIVE METABOLI C PANEL CARBON DIOXIDE, TOTAL [MOLES/VOL UME] IN SERUM OR PLASMA 28 mmol/L 22 - 30 08/19 Specimen Type: PLASMA Comment: DLDL REF RANGE: [...] Aug 19, 2024 08:28 AM Reporting Lab: [place] [phone] Performing Lab: [place] [phone] [facility] COMPREHE NSIVE METABOLI C PANEL GLUCOSE [MASS/VOLU ME] IN SERUM OR PLASMA 90 mg/dL 74 - 99 08/19 Specimen Type: PLASMA Comment: DLDL REF RANGE: [...] Aug 19, 2024 08:28 AM Reporting Lab: [place] [phone] Performing Lab: [place] [phone] [facility] COMPREHE NSIVE METABOLI C PANEL PROTEIN [MASS/VOLU ME] IN SERUM OR PLASMA 7.3 g/dL 6.4 - 8.3 08/19 Specimen Type: PLASMA Comment: DLDL REF RANGE: [...] Aug 19, 2024 08:28 AM Reporting Lab: [address] [address] Performing Lab: [place] [phone] [facility] COM[facility]IVE METABOLI C PANEL SODIUM [MOLES/VOL UME] IN SERUM OR PLASMA 145 mmol/L 134 - 144 08/19 H Specimen Type: PLASMA Comment: DLDL REF RANGE: [...] Aug 19, 2024 08:28 AM Reporting Lab: [place] [phone] Performing Lab: [place] [phone] [facility] COMPREHE NSIVE METABOLI C PANEL CHLORIDE [MOLES/VOL UME] IN SERUM OR PLASMA 108 mmol/L 99 - 112 08/19 Specimen Type: PLASMA Comment: DLDL REF RANGE: [...] Aug 19, 2024 08:28 AM Reporting Lab: [address] [address] Performing Lab: [place] [phone] [facility] COMPREHE NSIVE METABOLI C PANEL BILIRUBIN. TOTAL [MASS/VOLU ME] IN SERUM OR PLASMA 1.0 mg/dL 0.2 - 1.2 08/19 Specimen Type: PLASMA Comment: DLDL REF RANGE: [...] Aug 19, 2024 08:28 AM Reporting Lab: [address] [address] Performing Lab: [address] [address] [facility] COMPREHE NSIVE METABOLI C PANEL POTASSIUM [MOLES/VOL UME] IN SERUM OR PLASMA 4.3 mmol/L 3.5 - 5.1 08/19 Specimen Type: PLASMA Comment: DLDL REF RANGE: [...] Aug 19, 2024 08:28 AM Reporting Lab: [place] [phone] Performing Lab: [place] [phone] [facility] COMPREHE NSIVE METABOLI C PANEL ANION GAP IN SERUM OR PLASMA 13 mmol/L - 08/19 Specimen Type: PLASMA Comment: DLDL REF RANGE: [...] Aug 19, 2024 08:28 AM Reporting Lab: [place] [phone] Performing Lab: [place] [phone] [facility] COMPREHE NSIVE METABOLI C PANEL GLOMERULAR FILTRATION RATE/1.73 SQ M.PREDICTE D [VOLUME RATE/AREA] IN SERUM, PLASMA OR BLOOD BY CREATININE -BASED FORMULA (CKD-EPI 2020) 87.0 mL/min 08/19 Specimen Type: PLASMA Comment: DLDL REF RANGE: [...] Aug 19, 2024 08:28 AM Reporting Lab: [place] [phone] Performing Lab: [place] [phone] [facility] MICROALB UMIN/CRE ATININE RATIO PANEL MICROALBUM IN [MASS/VOLU ME] IN URINE 1 mg/dL 08/19 Specimen Type: URINE Comment: UMICROALBUM IN Reference range has not been established for this UMICROALBUM IN test. Results should be interpreted in conjunction UMICROALBUM IN with clinical judgement. Ordering Provider: CHRISTOPHER SULTANA Report Released Date/Time: Aug 19, 2024 08:28 AM Reporting Lab: [place] [phone] Performing Lab: [place] [phone] [facility] MICROALB UMIN/CRE ATININE RATIO PANEL CREATININE [MASS/VOLU ME] IN URINE 198 mg/dL 08/19 Specimen Type: URINE Comment: UMICROALBUM IN Reference range has not been established for this UMICROALBUM IN test. Results should be interpreted in conjunction UMICROALBUM IN with clinical judgement. Ordering Provider: CHRISTOPHER SULTANA Report Released Date/Time: Aug 19, 2024 08:28 AM Reporting Lab: [place] [phone] Performing Lab: [place] [phone] MICROALB UMIN/CRE ATININE RATIO PANEL MICROALBUM IN/CREATIN INE [MASS RATIO] IN URINE 5.0 mg/g <19.9 - 19.9 08/19 Specimen Type: URINE Comment: UMICROALBUM IN Reference range has not been established for this UMICROALBUM IN test. Results should be interpreted in conjunction UMICROALBUM IN with clinical judgement. Ordering Provider: CHRISTOPHER SULTANA Report Released Date/Time: Aug 19, 2024 08:28 AM Reporting Lab: [place] [phone] Performing Lab: [place] [phone] CBC LEUKOCYTES [#/VOLUME] IN BLOOD BY AUTOMATED COUNT 10.2 10*3/uL 3.6 - 11.0 08/19 Specimen Type: BLOOD No comment entered. Ordering Provider: LOVE RICHMOND Report Released Date/Time: Jun 20, 2024 12:17 PM Reporting Lab: [address] [address] Performing Lab: [place] [phone] [facility] CBC ERYTHROCYT ES [#/VOLUME] IN BLOOD BY AUTOMATED COUNT 4.90 10*6/uL 4.47 - 5.83 08/19 Specimen Type: BLOOD No comment entered. Ordering Provider: LOVE RICHMOND Report Released Date/Time: Jun 20, 2024 12:17 PM Reporting Lab: [address] [address] Performing Lab: [address] [address] [facility] CBC HEMOGLOBIN [MASS/VOLU ME] IN BLOOD 15.5 g/dL 13.6 - 17.4 08/19 Specimen Type: BLOOD No comment entered. Ordering Provider: LOVE RICHMOND Report Released Date/Time: Jun 20, 2024 12:17 PM Reporting Lab: [address] [id number] Performing Lab: [address] [phone] [facility] CBC HEMATOCRIT [VOLUME FRACTION] OF BLOOD BY AUTOMATED COUNT 45.8 40.0 - 51.0 08/19 Specimen Type: BLOOD No comment entered. Ordering Provider: LOVE RICHMOND Report Released Date/Time: Jun 20, 2024 12:17 PM Reporting Lab: [place] [phone] Performing Lab: [place] [phone] [place] [address] CBC MCV [ENTITIC VOLUME] BY AUTOMATED COUNT 93.4 fL 80.0 - 96.0 08/19 Specimen Type: BLOOD No comment entered. Ordering Provider: LOVE RICHMOND Report Released Date/Time: Jun 20, 2024 12:17 PM Reporting Lab: [address] [id number] Performing Lab: [place] [phone] [facility] CBC MCH [ENTITIC MASS] BY AUTOMATED COUNT 31.6 pg 27.0 - 31.0 08/19 H Specimen Type: BLOOD No comment entered. Ordering Provider: LOVE RICHMOND Report Released Date/Time: Jun 20, 2024 12:17 PM Reporting Lab: [address] [address] Performing Lab: [place] [id number] [facility] CBC MCHC [MASS/VOLU ME] BY AUTOMATED COUNT 33.9 g/dL 31.5 - 36.5 08/19 Specimen Type: BLOOD No comment entered. Ordering Provider: LOVE RICHMOND Report Released Date/Time: Jun 20, 2024 12:17 PM Reporting Lab: [place] [id number] Performing Lab: [place] [id number] CBC PLATELETS [#/VOLUME] IN BLOOD BY AUTOMATED COUNT 318 10*3/uL 150 - 400 08/19 Specimen Type: BLOOD No comment entered. Ordering Provider: LOVE RICHMOND Report Released Date/Time: Jun 20, 2024 12:17 PM Reporting Lab: [place] [id number] Performing Lab: [place] [id number] CBC LYMPHOCYTE S/100 LEUKOCYTES IN BLOOD BY AUTOMATED COUNT 23.7 21.0 - 51.0 08/19 Specimen Type: BLOOD No comment entered. Ordering Provider: LOVE RICHMOND Report Released Date/Time: Jun 20, 2024 12:17 PM Reporting Lab: [place] [id number] Performing Lab: [place] [id number] CBC MONOCYTES/ 100 LEUKOCYTES IN BLOOD BY AUTOMATED COUNT 7.7 4.0 - 8.0 08/19 Specimen Type: BLOOD No comment entered. Ordering Provider: LOVE RICHMOND Report Released Date/Time: Jun 20, 2024 12:17 PM Reporting Lab: [place] [id number] Performing Lab: [place] [id number] CBC NUCLEATED ERYTHROCYT ES/100 LEUKOCYTES [RATIO] IN BLOOD BY MANUAL COUNT 0.1 /100{WBC s} 08/19 Specimen Type: BLOOD No comment entered. Ordering Provider: LOVE RICHMOND Report Released Date/Time: Jun 20, 2024 12:17 PM Reporting Lab: [address] [address] Performing Lab: [place] [id number] [place] [address] CBC ERYTHROCYT E DISTRIBUTI ON WIDTH [RATIO] BY AUTOMATED COUNT 13.3 11.2 - 15.8 08/19 Specimen Type: BLOOD No comment entered. Ordering Provider: LOVE RICHMOND Report Released Date/Time: Jun 20, 2024 12:17 PM Reporting Lab: [place] [phone] Performing Lab: [place] [phone] [place] [address] CBC NEUTROPHIL S/100 LEUKOCYTES IN BLOOD BY AUTOMATED COUNT 66.3 54.0 - 78.0 08/19 Specimen Type: BLOOD No comment entered. Ordering Provider: LOVE RICHMOND Report Released Date/Time: Jun 20, 2024 12:17 PM Reporting Lab: [place] [phone] Performing Lab: [place] [id number] CBC EOSINOPHIL S/100 LEUKOCYTES IN BLOOD BY AUTOMATED COUNT 1.3 0.0 - 3.0 08/19 Specimen Type: BLOOD No comment entered. Ordering Provider: LOVE RICHMOND Report Released Date/Time: Jun 20, 2024 12:17 PM Reporting Lab: [place] [phone] Performing Lab: [place] [id number] CBC BASOPHILS/ 100 LEUKOCYTES IN BLOOD BY AUTOMATED COUNT 1.0 0.0 - 3.0 08/19 Specimen Type: BLOOD No comment entered. Ordering Provider: LOVE RICHMOND Report Released Date/Time: Jun 20, 2024 12:17 PM Reporting Lab: [place] [phone] Performing Lab: [place] [id number] CBC LYMPHOCYTE S [#/VOLUME] IN BLOOD BY AUTOMATED COUNT 2.4 10*3/uL 0.8 - 5.0 08/19 Specimen Type: BLOOD No comment entered. Ordering Provider: LOVE RICHMOND Report Released Date/Time: Jun 20, 2024 12:17 PM Reporting Lab: [place] [phone] Performing Lab: [place] [phone] [facility] CBC NEUTROPHIL S [#/VOLUME] IN BLOOD 6.8 10*3/uL 1.9 - 8.6 08/19 Specimen Type: BLOOD No comment entered. Ordering Provider: LOVE RICHMOND Report Released Date/Time: Jun 20, 2024 12:17 PM Reporting Lab: [place] [phone] Performing Lab: [place] [phone] [facility] CBC BASOPHILS [#/VOLUME] IN BLOOD BY AUTOMATED COUNT 0.1 10*3/uL 0.0 - 0.3 08/19 Specimen Type: BLOOD No comment entered. Ordering Provider: LOVE RICHMOND Report Released Date/Time: Jun 20, 2024 12:17 PM Reporting Lab: [place] [phone] Performing Lab: [place] [id number] CBC MONOCYTES [#/VOLUME] IN BLOOD BY AUTOMATED COUNT 0.8 10*3/uL 0.1 - 0.9 08/19 Specimen Type: BLOOD No comment entered. Ordering Provider: LOVE RICHMOND Report Released Date/Time: Jun 20, 2024 12:17 PM Reporting Lab: [place] [phone] Performing Lab: [place] [phone] [facility] CBC EOSINOPHIL S [#/VOLUME] IN BLOOD BY AUTOMATED COUNT 0.1 10*3/uL 0.0 - 0.3 08/19 Specimen Type: BLOOD No comment entered. Ordering Provider: LOVE RICHMOND Report Released Date/Time: Jun 20, 2024 12:17 PM Reporting Lab: [place] [phone] Performing Lab: [place] [phone] [facility] CBC PLATELET MEAN VOLUME [ENTITIC VOLUME] IN BLOOD BY AUTOMATED COUNT 8.5 fL 7.4 - 11.4 08/19 Specimen Type: BLOOD No comment entered. Ordering Provider: LOVE RICHMOND Report Released Date/Time: Jun 20, 2024 12:17 PM Reporting Lab: [place] [phone] Performing Lab: [place] [phone] [place] [address] URINALYS IS SPECIFIC GRAVITY OF URINE 1.027 1.016 - 1.022 08/19 H Specimen Type: URINE No comment entered. Ordering Provider: CHRISTOPHER SULTANA Report Released Date/Time: Aug 19, 2024 08:28 AM Reporting Lab: [place] [phone] Performing Lab: [place] [phone] [facility] URINALYS IS GLUCOSE [MASS/VOLU ME] IN URINE BY TEST STRIP Negative mg/dL 08/19 Specimen Type: URINE No comment entered. Ordering Provider: CHRISTOPHER SULTANA Report Released Date/Time: Aug 19, 2024 08:28 AM Reporting Lab: [place] [phone] Performing Lab: [place] [phone] [facility] URINALYS IS PROTEIN [MASS/VOLU ME] IN URINE BY TEST STRIP Negative mg/dL 08/19 Specimen Type: URINE No comment entered. Ordering Provider: CHRISTOPHER SULTANA Report Released Date/Time: Aug 19, 2024 08:28 AM Reporting Lab: [place] [phone] Performing Lab: [place] [phone] [facility] URINALYS IS PH OF URINE BY TEST STRIP 5.0 5.0 - 8.0 08/19 Specimen Type: URINE No comment entered. Ordering Provider: CHRISTOPHER SULTANA Report Released Date/Time: Aug 19, 2024 08:28 AM Reporting Lab: [address] [address] Performing Lab: [place] [phone] [facility] URINALYS IS NITRITE [PRESENCE] IN URINE BY TEST STRIP Negative 08/19 Specimen Type: URINE No comment entered. Ordering Provider: CHRISTOPHER SULTANA Report Released Date/Time: Aug 19, 2024 08:28 AM Reporting Lab: [address] [phone] Performing Lab: [place] [phone] [facility] URINALYS IS LEUKOCYTE ESTERASE [PRESENCE] IN URINE BY TEST STRIP Negative 08/19 Specimen Type: URINE No comment entered. Ordering Provider: CHRISTOPHER SULTANA Report Released Date/Time: Aug 19, 2024 08:28 AM Reporting Lab: [address] [address] Performing Lab: [place] [phone] [facility] URINALYS IS CLARITY OF URINE Clear 08/19 Specimen Type: URINE No comment entered. Ordering Provider: CRHISTOPHER SULTANA Report Released Date/Time: Aug 19, 2024 08:28 AM Reporting Lab: [place] [phone] Performing Lab: [place] [phone] [facility] URINALYS IS MUCUS [PRESENCE] IN URINE SEDIMENT BY LIGHT MICROSCOPY Present 08/19 H Specimen Type: URINE No comment entered. Ordering Provider: CHRISTOPHER SULTANA Report Released Date/Time: Aug 19, 2024 08:28 AM Reporting Lab: [address] [address] Performing Lab: [place] [phone] [facility] URINALYS IS BILIRUBIN. TOTAL [MASS/VOLU ME] IN URINE BY TEST STRIP Negative mg/dL - 0.4 08/19 Specimen Type: URINE No comment entered. Ordering Provider: CHRISTOPHER SULTANA Report Released Date/Time: Aug 19, 2024 08:28 AM Reporting Lab: [address] [phone] Performing Lab: [address] [address] [facility] URINALYS IS HEMOGLOBIN [PRESENCE] IN URINE BY TEST STRIP Negative mg/dL <0.05 - 0.05 08/19 Specimen Type: URINE No comment entered. Ordering Provider: CHRISTOPHER SULTANA Report Released Date/Time: Aug 19, 2024 08:28 AM Reporting Lab: [place] [phone] Performing Lab: [place] [phone] [facility] URINALYS IS UROBILINOG EN [MASS/VOLU ME] IN URINE Negative mg/dL - 1 08/19 Specimen Type: URINE No comment entered. Ordering Provider: CHRISTOPHER SULTANA Report Released Date/Time: Aug 19, 2024 08:28 AM Reporting Lab: [place] [phone] Performing Lab: [place] [id number] [facility] URINALYS IS KETONES [MASS/VOLU ME] IN URINE BY TEST STRIP Negative mg/dL - 9 08/19 Specimen Type: URINE No comment entered. Ordering Provider: CHRISTOPHER SULTANA Report Released Date/Time: Aug 19, 2024 08:28 AM Reporting Lab: [place] [phone] Performing Lab: [place] [phone] [facility] URINALYS IS COLOR OF URINE Yellow [none] 08/19 Specimen Type: URINE No comment entered. Ordering Provider: CHRISTOPHER SULTANA Report Released Date/Time: Aug 19, 2024 08:28 AM Reporting Lab: [place] [phone] Performing Lab: [place] [phone] [facility] TSH THYROTROPI N [UNITS/VOL UME] IN SERUM OR PLASMA BY DETECTION LIMIT <= 0.005 MIU/L 2.295 u[IU]/mL 0.360 - 4.500 02/21 Specimen Type: PLASMA No comment entered. Ordering Provider: CHRISTOPHER SULTANA Report Released Date/Time: Feb 10, 2024 04:39 PM Reporting Lab: [place] [phone] Performing Lab: [address] [place] [address] [facility] Vital Signs Combined list of inpatient and outpatient Vital Signs from Department of Defense and Veterans Affairs, ranging from 12 months to all on record, depending upon the facility. Vital Sign Value Date Comments Source SYSTOLIC BLOOD PRESSURE 143 08/29/2024 14:28:34 [facility] DIASTOLIC BLOOD PRESSURE 86 08/29/2024 14:28:34 [facility] PULSE OXIMETRY 95 08/29/2024 14:28:34 [facility] WEIGHT 225.9 08/29/2024 14:28:34 [facility] BMI 32 kg/m2 08/29/2024 14:28:34 [facility] PAIN 3 08/29/2024 14:28:34 [facility] TEMPERATURE 98.1 08/29/2024 14:28:34 [facility] PULSE 76 08/29/2024 14:28:34 [facility] RESPIRATION 20 08/29/2024 14:28:34 [facility] SYSTOLIC BLOOD PRESSURE 136 02/22/2024 12:59:00 [facility] DIASTOLIC BLOOD PRESSURE 79 02/22/2024 12:59:00 [facility] WEIGHT 215.1 02/22/2024 12:59:00 [facility] BMI 30 kg/m2 02/22/2024 12:59:00 [facility] PAIN 0 02/22/2024 12:59:00 [facility] TEMPERATURE 97.5 02/22/2024 12:59:00 [facility] PULSE 72 02/22/2024 12:59:00 [facility] RESPIRATION 18 02/22/2024 12:59:00 [facility] Encounters Combined list of: 1) Encounters from Department of Veterans Affairs facilities going backup to the last 18 months, not all VA inpatient encounters are included; 2) Encounters from the Department of [facility] facilities going backup to 280 months. 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 utic drug level monitor HIPOLITO Benavidez OND 10/28 [facility] OFFICE O/P EST MOD 30 MIN [id number] Diagnos is: ICD-10- CM Z86.711 Persona l history of pulmona ry embolis KASI Thomas 02/21 [facility] Outpatient Encounter [id number] 03/02 [facility] Outpatient Encounter [id number] 03/02 [facility] OFFICE O/P NEW LOW 30 MIN [id number] Diagnos is: ICD-10- CM 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 MARIA GUADALUPE ENGLE 03/08 [facility] Outpatient Encounter [id number] 06/03 [facility] Outpatient Encounter [id number] 06/15 [facility] Outpatient Encounter [id number] Diagnos is: ICD-10- CM 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 ZAIRA Ureña 06/16 [facility] Out[facility] Encounter [id number] 06/18 [facility] QNHP OL DIG ASSMT&MGMT 5-10 [id number] Diagnos is: ICD-10- CM Z51.81 Encount er for therape utic drug level monitor archie HOFFMANNJODEETOI Nicolas 06/20 [facility] Outpatient Encounter [id number] 06/28 [facility] CB OFF/OP EST MAY X REQ PHY/QHP [id number] Diagnos is: ICD-10- CM I48.91 Unspeci fied atrial fibrill ation MILI GORDON 08/19 [facility] En[facility] [id number] 08/22 [facility] NQHP OL DIG ASSMT&MGMT 5-10 [id number] Diagnos is: ICD-10- CM Z79.01 MCC (curr) use of anticoa TOI Moore 08/22 [facility] Outpatient Encounter [id number] 08/29 [facility] CB OFFICE O/P EST MOD 30 MIN [id number] Diagnos is: ICD-10- CM I48.91 Unspeci fied atrial fibrill ation SULLY SULTANA L 08/29 [facility] En[facility] [id number] 10/19 [facility] Outpatient Encounter [id number] 10/21 [facility] MTMS BY PHARM EST 15 MIN [id number] Diagnos is: ICD-10- CM Z79.01 MCC (curren t) use of anticoa TOI Moore 10/24 [facility] Outpatient Encounter [id number] [facility] Social History Combined list of available smoking, tobacco, and other social history from Department of Defense and Veterans Affairs facilities. Social History Type Response Date Comment Sourc e Tobacco smoking status NHIS VA-TOBACCO NEVER USED 02/22/2024 [facility] History of tobacco use TOBACCO NEVER USE D ADMISSION 07/05/2023 [facility] History of tobacco use TOBACCO NEVER USE D ADMISSION 03/31/2023 [facility] History of tobacco use VA-TOBACCO NEVER USED 01/12/2023 [facility] History of tobacco use VA-TOBACCO FORMER USER 01/17/2022 [facility] History of tobacco use VA-TOBACCO FORMER USER 10/29/2020 [facility] History of tobacco use VA-TOBACCO NEVER USED 03/25/2019 [facility] History of tobacco use VA-TOBACCO NEVER USED 03/23/2018 [facility] History of tobacco use TOBACCO [place] NON USER 4 [facility] History of tobacco use TOBACCO FORMER US ER MORE 12 MONTHS 07/14/2013 [facility] History of tobacco use TOBACCO [place] NON USER 3 [facility] History of tobacco use TOBACCO [place] NON USER 3 [facility] History of tobacco use TOBACCO FORMER US ER MORE 12 MONTHS 08/31/2012 [facility] History of tobacco use TOBACCO [place] NON USER 9 [facility] History of tobacco use LIFETIME NON-USER OF TOBACCO 03/08/2008 [facility] Plan of Care List of future care activities from Department of Veterans Affairs facilities. Additional future care activities may be listed in the Assessment and Plan section. Date/Time Care Activity Care Activity Detail Facili ty 02/14/2025 AMBULATORY - NONE AMBULATORY - NONE EUFEMIA FLORES [facility] Advance Directives List of completed, amended, or rescinded Advance Directives on record at Department of [facility] Affairs facilities. An actual copy of the Directive is not included. Date Advance Directive Provider Source 05/21/2023 ADVANCE DIRECTIVE [facility] 05/20/2023 ADVANCE DIRECTIVE DISCUSSION [facility] 03/15/2019 ADVANCE DIRECTIVE DISCUSSION JEANNETTE TAYLOR [facility] 10/08/[address] SB HAAS [facility] 08/31/2012 ADVANCE DIRECTIVE DISCUSSION LAW JUSTIN SHARIF [facility] 05/17/2009 RESCINDED ADVANCE DIRECTIVE BREE ALEXIS [facility] 01/31/2009 ADVANCE DIRECTIVE DISCUSSION JEANNETTE TAYLOR [facility]
[2025-02-05 15:32] VITALS: BP 133/70; PULSE 80; TEMP 36.7; O2SAT 97; BMI 24.7
--- OUTSIDE RECORDS SUMMARY | 2025-02-05 15:34 | XMS_ITS | Clinical Summary ---
Author Organization [facility] Address [address] [place] [address] Phone Care Team Providers Care Water Filtration Technician Name Role Phone Mulu Orosco DO Primary Care Provider Adeel Youngblood MD Unavailable Allergies No known active allergies Medications mirtazapine (Remeron) 30 mg tablet TAKE 1 TABLET BY MOUTH ONCE DAILY AT BEDTIME. 30 tablet 3 Active Additional Information Patient not taking.Reported on 02/17/2024 cholecalciferol (Vitamin D-3) 50 MCG (1999) tablet Take 1 tablet (50 mcg) by mouth once daily. 3 Active apixaban (Eliquis) 5 mg tabletIndication s:Acute pulmonary embolism with acute cor pulmonale, unspecified pulmonary embolism type (Multi),Acute deep vein thrombosis (DVT) of other specified vein of left lower extremity Take 1 tablet (5 mg) by mouth 2 times a day. 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 Meniere's disease 04/10/2023 Obstructive sleep apnea of adult 04/10/2023 Major depressive disorder, recurrent, unspecifie d 04/10/2023 Major depressive disorder 04/10/2023 Seasonal affective disorder 04/10/2023 Overview (04/10/2023): Mar 02, 2015 Entered By: ZAIRA SALDANA Comment: MDD with SADAug 2014 Entered By: ZAIRA SALDANA Comment: Depression worsens late winter, improves by late summerAug 2014 Entered By: ZAIRA SALDANA Comment: SAD light from April through September Other pulmonary embolism without acute cor pulmo nale 04/03/2023 Encounters Date Type Department Care Team Description 11/30/2024 10:40 AM EDT Office Visit [facility] [address] [facility] [address] [place] [address] Blanka Moon MD Acute pulmonary embolism with acute cor pulmonale, unspecified pulmonary embolism type (Multi) (Primary Dx); Patent foramen ovale (HHS-HCC); Longstanding persistent atrial fibrillation (Multi) 11/30/2024 Travel 11/23/2024 Travel from Last 3 Months Immunizations Immunization Administration Dates Next Due DTaP, Unspecified 06/28/2013 Flu vaccine, trivalent, pres ervative free, age 6 months and greater (Fluarix/Fluzone/Flulaval) 06/21/2014 Hep A / Hep B 06/21/2014,07/27/2013,06/28/2013 Influenza, Unspecified 07/27/2013 Meningococcal ACWY, unspecified 06/28/2013 Pneumococcal conjugate vacci ne, 13-valent (PREVNAR 13) 11/16/2017 Pneumococcal, Unspecified 03/07/2009 Tdap vaccine, age 7 year and older (BOOSTRIX, ADACEL) 04/29/2022 Social History Tobacco Use Types Packs/Day Years Used Date Smoking Tobacco: Former Cigarettes Smokeless Tobacco: Never Tobacco Cessation:Counseling Given: No PHQ-2 Answer Date Recorded Patient Health Questionnaire-2 Score 0 11/30/2024 Sex and Gender Information Value Date Recorded Sex Assigned at Not on file Legal Sex Male 10:35 AM EDT Gender Identity Not on file Sexual Orientation Not on file Last Filed Vital Signs Vital Sign Reading Time Taken Comments Blood Pressure 116/74 11/30/2024 10:38 AM EDT Pulse 73 11/30/2024 10:38 AM EDT Temperature - - Respiratory Rate 18 11/30/2024 10:38 AM EDT Oxygen Saturation - - Inhaled Oxygen Concentration - - Weight 99.5 kg (219 lb 6.4 oz) 11/30/2024 10:38 AM EDT Height 180.3 cm (5' 11 ) 11/30/2024 10:38 AM EDT Body Mass Index 30.6 11/30/2024 10:38 AM EDT Plan of Treatment Health Maintenance Due Date Last Done Comments Lipid Panel 1945 Medicare Annual Wellness Vis it (AWV) 1945 Zoster Vaccines (1 of 2) 1995 Pneumococcal Vaccine (2 of 2 - PPSV23, PCV20, or PCV21) 01/11/2018 11/16/2017, 03/07/2009 RSV High Risk: (Elderly (60+ ) or Population) (1 - 1-dose 75+ series) 01/31/2020 COVID-19 Vaccine (4 - 2023-2 5 season) 2024 05/01/2021, 09/11/2020, 08/13/2020 Diabetes Screening 04/03/2024 04/03/2023, 04/01/2023, 03/31/2023 Influenza Vaccine (#1) 2025 , 06/21/2014, 07/27/2013 DTaP/Tdap/Td Vaccines (3 - T d or Tdap) 04/29/2032 04/29/2022, 06/28/2013 Meningococcal Vaccine Aged Out 06/28/2013 No rob kate eligible based on patient's age to complete this topic Hepatitis A Vaccines Aged Out 06/21/2014, 07/27/2013, 06/28/2013 No longer eligible based on patient's age to complete this topic Hepatitis B Vaccines Completed 06/21/2014, 07/27/2013, 06/28/2013 HIB Vaccines Aged Out No longer eligi ble based on patient's age to complete this topic HPV Vaccines Aged Out No longer eligi ble based on patient's age to complete this topic IPV Vaccines Aged Out No longer eligi ble based on patient's age to complete this topic Rotavirus Vaccines Aged Out No longer eligible based on patient's age to complete this topic Procedures Procedure Name Priority Date/Time Associated Diagnosis Comments COMPREHENSIVE METABOLIC PANEL Today 04/03/2023 8:13 AM EDT from Last 3 Months or Most Recently Relevant to Health Maintenance Results * (ABNORMAL) Comprehensive Metabolic Panel (04/03/2023 8:13 AM EDT) Glucose 110(H) 74 - 99 mg/dL [facility] Sodium 142 136 - 145 mmol/L [facility] Potassium 3.9 3.5 - 5.3 mmol/L [facility] Chloride 106 98 - 107 mmol/L [facility] Bicarbonate 25 21 - 32 mmol/L [facility] Anion Gap 15 10 - 20 mmol/L [facility] Urea Nitrogen 21 6 - 23 mg/dL [facility] Creatinine 0.95 0.50 - 1.30 mg/dL [facility] GFR MALE 82 >90 mL/min/1.7 3m2 [facility] Comment: CALCULATIONS OF ESTIMATED GFR ARE PERFORMED USING THE 2020 CKD-EPI STUDY REFIT EQUATION WITHOUT THE RACE VARIABLE FOR THE IDMS-TRACEABLE CREATININE METHODS. https://jasn.asnjournals.org/content///ASN.4688578611 Calcium 8.9 8.6 - 10.6 mg/dL [facility] Albumin 3.6 3.4 - 5.0 g/dL [facility] Alkaline Phosphatase 70 33 - 136 U/L [facility] Total Protein 6.2(L) 6.4 - 8.2 g/dL [facility] AST 22 9 - 39 U/L [facility] Total Bilirubin 0.8 0.0 - 1.2 mg/dL [facility] ALT (SGPT) 22 10 - 52 U/L [facility] Comment: Patients treated with Sulfasalazine may generate falsely decreased results for ALT. 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
--- OUTSIDE RECORDS SUMMARY | 2025-02-05 15:34 | XMS_ITS | Patient Health Record ---
Author Organization [facility] [place] Address [address] [place] [address] Care Team Providers Care Vertical Lathe Operator Name Role Phone Mulu Orosco Primary Care Provider Flores WoodallJuancho Unavailable [phone] Allergies No Known Allergies Reason For Referral No Information Medications Medication SIG (Take, Route, Frequency, Duration) Notes Start Date End Date Status Eliquis 5 MG 1 tablet Orally Twic e a day Active Mirtazapine 30 MG 1 tablet at bedtime Orally Once a day Active Vitamin D3 50 MCG (1999) 1 capsule Or ally Once a day Active Immunizations Vaccine Route Administration Date Status Comme nts SARS-COV-2 (COVID 19 Moderna - Booster 0.25mL) Unknown 05/01/2021 Administered Social History Tobacco Use: Social History Observation Description Date Details (start date - stop date) Never Smoker NA - NA Tobacco Use/Smoking Question Answer Notes Patient is a nonsmoker Problems Problem Type SNOMED Code ICD Code Onset Dates Problem Status W/U Status Risk Notes Problem 083913773 Obesity, unspecified (E66.9) Active confirmed Problem Chronic respiratory failure (40848086) Chronic respiratory failure with hypoxia (J96.11) Active confirmed Problem Obstructive sleep apnea syndrome (94534516) BRODY (obstructive sleep apnea) (G47.33) Active confirmed Problem Pulmonary embolism (81706847) Pulmonary emboli (I26.99) Active confirmed Problem History of malaria (401728257) History of malaria (Z86.13) Active confirmed Diagnosed 2013 after trip from [place] Problem DVT of deep femoral vein, left (I82.412) Active confirmed Problem Patent foramen ovale (disorder) (285426954) PFO (patent foramen ovale) (Q21.12) Active confirmed Encounters Encounter Location Date Provider Diagnosis Pulmonary Medicine [facility] [address] [place] [address] 10/19/2024 Juancho Huertas Plan Of Treatment No Information Insurance Providers Payer Name Payer Address Payer Phone Subscriber Number Group Number Insured Name Patient Relationship to Insured Coverage Start Date Coverage End Date [facility] [employer] [address] [place] [address] [id number] Stefano James Self - patient is the insured [place] [address] [place] [address] [phone] [id number] KianakylahJames talbot Self - patient is the insured 0 Medical (General) History Medical History History ICD Code Pulmonary emboli I26.99 Chronic respiratory failure with hypoxia J96.11 BRODY (obstructive sleep apnea) G47.33 DVT of deep femoral vein, left I82.412 PFO (patent foramen ovale) Q21.12 Atrial fibrillation I48.91 Major depression F32.9 BPH (benign prostatic hypertrophy) N40.0 Meniere disease H81.09 History of malaria Z86.13 History of falling Z91.81 History of traumatic brain injury Z87.82 0 Surgical History Surgery Date(Month/Year) Right heart catheterization with pulmona ry emboli thrombectomy 03/31/2023 tonsillectomy rotator cuff tear repair facial fracture Hospitalization History Reason Date(Month/Year) Pulmonary emboli 03/30/2023
--- OUTSIDE RECORDS SUMMARY | 2025-02-05 15:34 | XMS_ITS | Encounter Summary ---
Author Organization [facility] Address [address] [place] [address] Phone Care Team Providers Care Practice Or Student Teacher Name Role Phone Mulu Orosco DO Primary Care Provider [phone] Adeel Youngblood MD Unavailable Reason for Referral * CV Imaging (Routine) - Pending Review Specialty Diagnoses / Procedures Referred By Contac t Referred To Contact Cardiology Diagnoses Patent foramen ovale (HHS-HCC) Procedures Transthoracic Echo (TTE) Complete MI ECHO TTHRC R-T 2D W/WOM-MODE COMPL SPEC&COLR D Mulu Orosco DO Phone: tel: fax: Referral ID Status Reason Start Date Expiration Date Visits Requested Visits Authorized [id number] Pending Review Perform Procedure 03/22/2024 03/22/2025 1 1 Encounter Details Date Type Department Care Team (Latest Contact Info) Description 03/22/2024 Transcribe Orders [facility] [address] [place] [address] Mulu Orosco DO [address] [place] [address] Patent foramen ovale (HHS-HCC) (Primary Dx) Social History Tobacco Use Types Packs/Day Years Used Date Smoking Tobacco: Former Cigarettes Smokeless Tobacco: Never PHQ-2 Answer Date Recorded Patient Health Questionnaire-2 Score 0 02/17/2024 Sex and Gender Information Value Date Recorded Sex Assigned at Not on file Legal Sex Male 10:35 AM EDT Gender Identity Not on file Sexual Orientation Not on file documented as of this encounter Plan of Treatment Scheduled Orders Name Type Priority Associated Diagnoses Order Schedule Transthoracic Echo (TTE) Complete Echocardiography Routine Patent foramen ovale (HHS-HCC) Expected: 03/22/2024 (Approximate), Expires: 03/22/2026 documented as of this encounter Visit Diagnoses Diagnosis Patent foramen ovale (HHS-HCC)- Primary Ostium secundum type atrial septal defect documented in this encounter Additional Health Concerns Assessment Noted Time A fall risk assessment has been complete d for the patient 02/17/2024 11:12 AM EDT documented as of this encounter Care Teams Practice Or Student Teacher Relationship Specialty Start Date End Date Mulu Orosco DO PCP - General Family Medicine 04/15/23 Adeel Youngblood MD [address] [facility] [address] [place] [address] Consulting Physician Cardiology 05/15/23 documented as of this encounter
--- OUTSIDE RECORDS SUMMARY | 2025-02-05 15:35 | XMS_ITS | CCD ---
Author Organization [facility] Care Team Providers Care Bending Roll Operator Name Role Phone SOFIA JONES Unavailable Unavailable [facility] Unavailable Unavailable MARISA CONKLIN Unavailable Unavailable MARISA CONKLIN Unavailable Unavailable [place] Unavailable Unavailable ROSIE MALONE Unavailable Unavailable ROSEANN MARC M Unavailable Unavailable ROSEANN, MARC M Unavailable Unavailable UNKNOWN, PHYSICIAN Unavailable Unavailable UNKNOWN, PHYSICIAN Unavailable Unavailable ROSEANN, MARC M Unavailable Unavailable ROSEANN, MARC M Unavailable Unavailable UNKNOWN, PHYSICIAN Unavailable Unavailable UNKNOWN, PHYSICIAN Unavailable Unavailable REQUEST, DR NONE LISTED Admitting Unavaila ble REQUEST, NONE [...] Unavailable Christopher Orosco DO Primary Care Provider Rylie MARINO, Adeel Unavailable ADEEL YOUNGBLOOD Attending Unavailable CHRISTOPHER OROSCO Primary Care Unavailable CORRIE, TAREK Admitting Unavailable CORRIE, TAREK Referring Unavailable Dr. Bryan Gibson Attending Unavailable Dr. Christopher Orosco Primary Care Unavailable ADEEL YOUNGBLOOD Referring Unavailable CHRISTOPHER OROSCO Primary Care Unavailable Christopher Orosco DO Primary Care Provider Christopher Orosco DO Primary Care Provider Rylie MARINO, Adeel Unavailable OPHELIA RAI Attending Unavailable CHRISTOPHER OROSCO Primary Care Unavailable OPHELIA RAI Attending Unavailable CHRISTOPHER OROSCO Primary Care Unavailable Allergies Allergy Classification Reported Allergen(s) Allergy Type Date of Onset Reaction(s) Facility (1 source) 97595,00 Drug allergy (disorder) 12-15-2009 [facility] Repository Medications Current Medications Medication Drug Class(es) Dates Sig (Normalized) Sig (Original) apixaban 5 mg oral tablet (8 sources) Factor Xa Inhibitor Start: 04-15-2023 take 1 tablet by mouth twice daily apixaban (Eliquis) 5 mg tablet Indications: Acute pulmonary embolism with acute cor pulmonale, unspecified pulmonary embolism type (Multi) , Acute deep vein thrombosis (DVT) of [...] 5060 Quantity: 60 Refills: 3 Ordered: 03-Apr-2023 Collar Band CreaserJame ayala Start: 03-Apr-2023 End: 31-Jul-2023 Generic Substitution Allowed cholecalciferol 0.05 mg oral tablet (5 sources) Vitamin D Start: 01-12-2023 take 1 tablet by mouth once daily cholecalciferol (Vitamin D-3) 50 MCG (1999) tablet Take 1 tablet (50 mcg) by mouth once daily. 01/12/2023 Active mirtazapine 15 mg oral tablet (7 sources) Start: 04-04-2023 mirtazapine (R emeron) tablet 30 mg Start: 04-03-2023 End: 04-02-2024 take 1 tablet by mouth once daily at bedtime mirtazapine (Remeron) 30 mg tablet TAKE 1 TABLET BY MOUTH ONCE DAILY AT BEDTIME. 30 tablet 04/03/2023 Active Completed/Discontinued Medications Medication Drug Class(es) Dates [...] unspecified] Onset: 04-03-2023 04-01-2023 Episodic Anxiety disorders (5 sources) Anxiety; Translations: [Anxiety disorder, unspecified] Onset: 04-10-2023 04-10-2023 Chronic Cardiac and circulatory congenital anomalies (5 sources) Patent foramen ovale; Translations: [Patent foramen ovale] Onset: 02-17-2024 04-15-2023 Chronic Cardiac dysrhythmias (14 sources) Unspecified atrial fibrillation; Translations: [Paroxysmal atrial fibrillation] Onset: 05-30-2018 03-31-2023 Chronic Conditions associated with dizziness or vertigo (5 sources) Meniere's disease; Translations: [Meniere's disease, unspecified [...] TRAF, INIT] Onset: 05-30-2018 Hyperplasia of prostate (5 sources) Large prostate ; Translations: [Benign prostatic [...] subsequent encounter] Onset: 05-30-2018 Episodic Mood disorders (16 sources) Recurrent major depression; Translations: [Major depressive disorder, recurrent, unspecified] Onset: 04-03-2023 04-10-2023 Chronic Osteoarthritis (1 source) Primary osteoarthritis, left shoulder; Translations: [PRIMARY OSTEOARTHRITIS, LEFT SHOULDER] Onset: 06-10-2018 Chronic Other aftercare (1 source) intermodal customer service (current) use of anticoagulants; Translations: [SENIOR CARE (CURRENT) USE OF ANTICOAGULANTS] Onset: 05-30-2018 Episodic Other connective tissue disease (1 source) Complete rotator cuff tear or rupture of left shoulder, not specified as traumatic; Translations: [COMPLETE ROTATR-CUFF TEAR/RUPTR OF LEFT SHOULDER, NOT TRAUMA] Onset: 06-21-2018 Episodic Other connective tissue disease (1 source) Bicipital tendinitis, left shoulder; Translations: [BICIPITAL TENDINITIS, LEFT SHOULDER] Onset: 06-21-2018 Episodic Other ear and sense organ disorders (5 sources) Asymmetrical sensorineural hearing loss; Translations: [Sensorineural hearing loss, bilateral] Onset: 04-10-2023 04-10-2023 Chronic Other injuries and conditions due to external causes (1 source) History of falling; Translations: [History of falling] Onset: 04-03-2023 Episodic Pulmonary heart disease (12 sources) Acute cor pulmonale; Translations: [Acute cor pulmonale] Onset: 03-31-2023 03-31-2023 Chronic Residual codes; unclassified (5 sources) Obstructive sleep apnea of adult; Translations: [...] of left peroneal vein] Onset: 04-03-2023 Unclassified (2 sources) Longstanding persistent atrial fibrillation; Translations: [Longstanding persistent atrial fibrillation (Multi)] Onset: 04-10-2023 Past or Other Problems Problem Classification Problem Date Documented Da te Episodic/Chronic Other fractures (5 sources) Closed fracture thoracic vertebra; Translations: [Unspecified fracture of unspecified thoracic vertebra, initial encounter for closed fracture] Onset: 04-10-2023 04-10-2023 Episodic Other fractures (5 sources) Closed fracture of fourth cervical vertebra; Translations: [Unspecified displaced fracture of fourth cervical vertebra, initial encounter for closed fracture] Onset: 04-10-2023 04-10-2023 Episodic Other infections; including parasitic (4 sources) Malignant tertian fever; 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, unspecified] Onset: 04-10-2023 04-10-2023 Episodic Other infections; including parasitic (1 source) Falciparum malaria; 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, unspecified] Onset: 04-10-2023 04-10-2023 Episodic Other injuries and conditions due to external causes (5 sources) Late effect of complications of trauma; Translations: [Unspecified early complication of trauma, sequela] Onset: 04-10-2023 04-10-2023 Episodic Other upper respiratory disease (5 sources) Dysphonia; Translations: [Dysphonia] Onset: 04-10-2023 04-10-2023 Episodic Phlebitis; thrombophlebitis and thromboembolism (14 sources) Deep venous thrombosis of lower extremity; Translations: [Acute venous embolism and thrombosis of deep vessels of proximal lower extremity] Onset: 04-03-2023 04-01-2023 Episodic Pulmonary heart disease (11 sources) Pulmonary embolism; Translations: [Other pulmonary embolism without acute cor pulmonale] Onset: 04-03-2023 03-31-2023 Episodic Unclassified (5 sources) Onset: 04-15-2023 Resolved: 11-30-2024 04-15-2023 Results Test Name Value Interpretation Reference Range Facility TRANSTHORACIC ECHO (TTE) [facility] 06-03-2023 TRANSTHORACIC ECHO (TTE) LIMITED [address], [address] [place] [address] TRANSTHORACIC ECHOCARDIOGRAM REPORT Patient Name: ERIC Villa Physician: [id number] Artur Chacon MD Study Date: 06/03/2023 Ordering Provider: [id number] ADEEL YOUNGBLOOD MRN/PID: [id number] Fellow: Nurse: Paradise Oconnell RN Date of /Age: 7 1945 / 78 years Summer Clerk: Elida Chow RDCS, RVT Gender: M Additional Staff: Height: 180.34 cm Admit Date: Weight: 98.88 kg Admission Status: BSA: 2.19 m2 Department Location: [facility] Blood Pressure: 128 /80 mmHg Study Type: TRANSTHORACIC ECHO (TTE) LIMITED Diagnosis/ICD: Other pulmonary embolism with acute cor pulmonale-I26.09 Indication: Atrial Fibrillation, Dyspnea on Exertion, BRODY, s/p Thromboembolectomy, PFO CPT Codes: Echo Limited-68528 Study Detail: The following Echo studies were [...] 0.8 m/s (0.6-0.9m/s) PV Max P.7 mmHg [id number] Artur Chacon MD Electronically signed on 06/03/2023 at 1:25:44 PM Final [facility] US Heart TransthoracicOrdere d By: Artur Chacon on 06-03-2023 LV A4C EF 56.5 [facility] Work Phone: LVIDd 4.60 [facility] Work Phone: LVOT diam 2.10 [facility] Work Phone: RVSP 28.6 [facility] Work Phone: [facility] Work Phone: Heart Transthoracicon [address], [address] [place] [address] TRANSTHORACIC ECHOCARDIOGRAM REPORT Patient Name: ERIC STEFANO Reading Physician: [id number] Artur Chacon MD Study Date: 06/03/2023 Ordering Provider: [id number] ADEEL YOUNGBLOOD MRN/PID: [id number] Fellow: Nurse: Paradise Oconnell RN Date of /Age: 7 1945 / 78 years Summer Clerk: Elida hCow RDCS, RVT Gender: M Additional Staff: Height: 180.34 cm Admit Date: Weight: 98.88 kg Admission Status: BSA: 2.19 m2 Department Location: [facility] Blood Pressure: 128 /80 mmHg Study Type: TRANSTHORACIC ECHO (TTE) LIMITED Diagnosis/ICD: Other pulmonary embolism with acute cor pulmonale-I26.09 Indication: Atrial Fibrillation, Dyspnea on Exertion, BRODY, s/p Thromboembolectomy, PFO CPT Codes: Echo Limited-44825 Study Detail: The following Echo studies were [...] 0.8 m/s (0.6-0.9m/s) PV Max P.7 mmHg 24000 Artur Chacon MD Electronically signed on 06/03/2023 at 1:25:44 PM Final SYNGO Artur Chacon MD - 06/03/[address], [address] [place] [address] TRANSTHORACIC ECHOCARDIOGRAM REPORT Patient Name: ERIC AGARWAL Reading Physician: [id number] Artur Chacon MD Study Date: 06/03/2023 Ordering Provider: [id number] ADEEL RYLIE MRN/PID: [id number] Fellow: Nurse: Paradise Oconnell RN Date of /Age: 7 1945 / 78 years Summer Clerk: Elida Chow RDCS, RVT Gender: M Additional Staff: Height: 180.34 cm Admit Date: Weight: 98.88 kg Admission Status: BSA: 2.19 m2 Department Location: [facility] Blood Pressure: 128 /80 mmHg Study Type: TRANSTHORACIC ECHO (TTE) LIMITED Diagnosis/ICD: Other pulmonary embolism with acute cor pulmonale-I26.09 Indication: Atrial Fibrillation, Dyspnea on Exertion, BRODY, s/p Thromboembolectomy, PFO CPT Codes: Echo Limited-99341 Study Detail: The following Echo studies were [...] 0.8 m/s (0.6-0.9m/s) PV Max P.7 mmHg [id number] Artur Chacon MD Electronically signed on 06/03/2023 at 1:25:44 PM Final [facility] Work Phone: CBCon 04-03-2023 Erythrocyte distribution width (RBC) [Ratio] 13.4 % Normal 11.5 - 14.5 [facility] Comment on above: Performed By: #### B NP2 #### [facility] [address] [place] [address] Hematocrit (Bld) [Volume fraction] 40.2 % Low 41.0 - 52.0 [facility] Comment on above: Performed By: #### B NP2 #### [facility] [address] [place] [address] Hemoglobin (Bld) [Mass/Vol] 13.1 g/dL Low 13.5 - 17.5 [facility] Comment on above: Performed By: #### B NP2 #### [facility] [address] [place] [address] MCHC (RBC) [Mass/Vol] 32.6 g/dL Normal 32.0 - 36.0 [facility] Comment on above: Performed By: #### B NP2 #### [facility] [address] [place] [address] MCV (RBC) [Entitic vol] 95 fL Normal 80 - 100 [facility] Comment on above: Performed By: #### B NP2 #### [facility] [address] [place] [address] NUCLEATED RBC 0.0 /100 WBC Normal 0.0-0.0 [facility] Comment on above: Performed By: #### B NP2 #### [facility] [address] [place] [address] Platelets (Bld) [#/Vol] 266 10*3/uL Normal 150 - 450 [facility] Comment on above: Performed By: #### B NP2 #### [facility] [address] [place] [address] RBC 4.24 x10E12/L Low 4.50 - 5.90 [facility] Comment on above: Performed By: #### B NP2 #### [facility] [address] [place] [address] WBC (Bld) [#/Vol] 10.1 10*3/uL Normal 4.4 - 11.3 [facility] Comment on above: Performed By: #### B NP2 #### [facility] [address] [place] [address] CBC panel Auto (Bld)on 04-03 Erythrocyte distribution width (RBC) [Ratio] 13.4 % 11.5 - 14.5 % [facility] Hematocrit (Bld) [Volume fraction] 40.2 % Low 41.0 - 52.0 % [facility] Hemoglobin (Bld) [Mass/Vol] 13.1 g/dL Low 13.5 - 17.5 g/dL [facility] Interpretation and review of laboratory results Abnormal [facility] MCHC (RBC) [Mass/Vol] 32.6 g/dL 32.0 - 36.0 g/dL [facility] MCV (RBC) [Entitic vol] 95 fL 80 - 100 fL [facility] Nucleated RBC/100 WBC (Bld) [Ratio] 0.0 % [facility] Platelets (Bld) [#/Vol] 266 10*3/uL [facility] RBC (Bld) [#/Vol] 4.24 10*6/uL Low Unive [facility] WBC (Bld) [#/Vol] 10.1 10*3/uL [facility] COMPREHENSIVE [facility]ELon 2022 Albumin [Mass/Vol] 3.6 g/dL Normal 3.4 - 5.0 [facility] Comment on above: Performed By: #### B NP2 #### [facility] [address] [place] [address] ALP [Catalytic activity/Vol] 70 U/L Normal 33 - 136 [facility] Comment on above: Performed By: #### B NP2 #### [facility] [address] [place] [address] ALT [Catalytic activity/Vol] 22 U/L Normal 10 - 52 [facility] Comment on above: Result Comment: Emily ents treated with Sulfasalazine may generate falsely decreased results for ALT. Performed By: #### B NP2 #### [facility] [address] [place] [address] Anion gap [Moles/Vol] 15 mmol/L Normal 10 - 20 [facility] Comment on above: Performed By: #### B NP2 #### [facility] [address] [place] [address] AST [Catalytic activity/Vol] 22 U/L Normal 9 - 39 [facility] Comment on above: Performed By: #### B NP2 #### [facility] [address] [place] [address] Bilirubin [Mass/Vol] 0.8 mg/dL Normal 0.0 - 1.2 [facility] Comment on above: Performed By: #### B NP2 #### [facility] [address] [place] [address] Calcium [Mass/Vol] 8.9 mg/dL Normal 8.6 - 10.6 [facility] Comment on above: Performed By: #### B NP2 #### [facility] [address] [place] [address] Chloride [Moles/Vol] 106 mmol/L Normal 98 - 107 [facility] Comment on above: Performed By: #### B NP2 #### [facility] [address] [place] [address] Creatinine [Mass/Vol] 0.95 mg/dL Normal 0.50 - 1.30 [facility] Comment on above: Performed By: #### B NP2 #### [facility] [address] [place] [address] GFR/1.73 sq M.predicted among non-blacks MDRD (S/P/Bld) [Vol rate/Area] 82 mL/min/{1.73_m2} Normal >90 [facility] Comment on above: Result Comment: CALC ULATIONS OF ESTIMATED GFR ARE PERFORMED USING THE 2020 CKD-EPI STUDY REFIT EQUATION WITHOUT THE RACE VARIABLE FOR THE IDMS-TRACEABLE CREATININE METHODS. https://jasn.asnjournals.org/content//ASN.64692 33558 Performed By: #### B NP2 #### [facility] [address] [place] [address] Glucose [Mass/Vol] 110 mg/dL High 74 - 99 [facility] Comment on above: Performed By: #### B NP2 #### [facility] [address] [place] [address] HCO3 (Bld) [Moles/Vol] 25 mmol/L Normal 21 - 32 [facility] Comment on above: Performed By: #### B NP2 #### [facility] [address] [place] [address] Potassium [Moles/Vol] 3.9 mmol/L Normal 3.5 - 5.3 [facility] Comment on above: Performed By: #### B NP2 #### [facility] [address] [place] [address] Protein [Mass/Vol] 6.2 g/dL Low 6.4 - 8.2 [facility] Comment on above: Performed By: #### B NP2 #### [facility] [address] [place] [address] Sodium [Moles/Vol] 142 mmol/L Normal 136 - 145 [facility] Comment on above: Performed By: #### B NP2 #### [facility] [address] [place] [address] Urea nitrogen [Mass/Vol] 21 mg/dL Normal 6 - 23 [facility] Comment on above: Performed By: #### B NP2 #### [facility] [address] [place] [address] Cardiac echo study Procedure on 04-03-2023 [facility], [address] [place] [address] and TRANSTHORACIC ECHOCARDIOGRAM REPORT Patient Name: ERIC AGARWAL Reading Physician: [id number] Demario Anguiano MD Study Date: 03/31/2023 Referring Physician: KYLEE COTTON MRN/PID: [id number] PCP: Accession/Order#: [id number] Department Location: [facility] Date of : 1945 Fellow: [id number] Syed Stewart MD Gender: M Nurse: Admit Date: 03/31/2023 Summer Clerk: Susy Valle [facility] Admission Status: Inpatient - STAT Additional Staff: Height: 177.00 cm [facility] Weight: 99.79 kg Study Type: Echocardiogram BSA: 2.17 m2 Blood Pressure: 127 /87 mmHg Diagnosis/ICD: I26.09-Other pulmonary embolism with acute cor pulmonale Indication: Pulmonary Embolism Procedure/CPT: Echo Complete w Full Doppler-41609 Patient History: Pertinent History: A-Fib. Pulmonary embolism, [...] LA Area A4C: 27.0 cm2 LA Major Goree A4C: 5.8 cm LA Vol A4C: 95.1 ml RA VOLUME BY A/L METHOD: Normal Ranges: RA Vol A4C: 130.2 ml (8.3-19.5ml) RA Vol Index A4C: 60.1 ml/m2 RA Area A4C: 31.8 cm2 RA Major Goree A4C: 6.6 cm AORTA MEASUREMENTS: Normal Ranges: [...] not included)... Demario Lackey MD - 04/03/2023 [facility], [address] [place] [address] and TRANSTHORACIC ECHOCARDIOGRAM REPORT Patient Name: ERIC Villa Physician: [id number] Demario Anguiano MD Study Date: 03/31/2023 Referring Physician: KYLEE COTTON MRN/PID: [id number] PCP: Accession/Order#: [id number] Department Location: [facility] Date of : 1945 Fellow: [id number] Syed Stewart MD Gender: M Nurse: Admit Date: 03/31/2023 Summer Clerk: Susy Valle [facility] Admission Status: Inpatient - STAT Additional Staff: Height: 177.00 cm CC Report to: [facility] Weight: 99.79 kg Study Type: Echocardiogram BSA: 2.17 m2 Blood Pressure: 127 /87 mmHg Diagnosis/ICD: I26.09-Other pulmonary embolism with acute cor pulmonale Indication: Pulmonary Embolism Procedure/CPT: Echo Complete w Full Doppler-96225 Patient History: Pertinent History: A-Fib. Pulmonary embolism, [...] LA Area A4C: 27.0 cm2 LA Major Goree A4C: 5.8 cm LA Vol A4C: 95.1 ml RA VOLUME BY A/L METHOD: Normal Ranges: RA Vol A4C: 130.2 ml (8.3-19.5ml) RA Vol Index A4C: 60.1 ml/m2 RA Area A4C: 31.8 cm2 RA Major Goree A4C: 6.6 cm AORTA MEASUREMENTS: Normal Ranges: [...] 2.19 cm2 (2.5- (more content not included)... [facility] Work Phone: Cardiac echo study Procedure Ordered By: Demario Anguiano on 04-03-2023 [facility] Work Phone: Clinical Event Noteon 2022 Clinical [...] by Rachele Lin (ADV CL[facility] N) Normal [facility] Clinical Event Note Clinical Event: Clinical Event [...] Updated: 03-Apr-2023 12:42 by Ophelia Rai) Normal [facility] Clinical Note - Pharmacy v2- Discharge Med Counselingon 04-03-2023 Clinical Note - Pharmacy v2-Discharge Med Counseling Clinical Note - Pharmacy v2: Discharge Meds: Document TopicDischarge Med Counseling Time Required5 - 10 minutes Prescription Director Of Event Marketing Medications Drug Name: mirtazapine 30 mg oral tablet Instructions: 1 tab(s) orally once (at bedtime) Drug Name: apixaban 5 mg oral tablet Instructions: 2 tab(s) orally every 12 hours Medications DeliveredAll above Medications Delivered Topatient Delivery Date/[id number] 16:38 Medications ReviewedAll above Education TopicADR counseling; dosage, frequency, storage; medication indication; medication interactions; missed dose explanation; refills Learnerpatient Barriers to Learningnone Methodverbal Outcome Evaluation2=meets goals/outcomes Allergy: Allergies Summary No Known Allergies Electronic Signatures: Rene Mortensen ([facility]) (Signed 03-Apr-2023 18:10) Co-Signer: Discharge Meds, Allergy Rin Triplett ([employer]) (Signed 03-Apr-2023 17:38) Authored: Discharge Meds, Allergy Last Updated: 03-Apr-2023 18:10 by Rene Mortensen ([facility]) Normal [facility] Comprehensive metabolic 2000 panelon 04-03-2023 Albumin BCP dye [Mass/Vol] 3.6 g/dL 3.4 - 5.0 g/dL [facility] ALP [Catalytic activity/Vol] 70 U/L 33 - 136 U/L [facility] ALT With P-5'-P [Catalytic activity/Vol] 22 U/L 10 - 52 U/L [facility] Comment on above: Patients treated wit h Sulfasalazine may generate falsely decreased results for ALT. Anion gap [Moles/Vol] 15 mmol/L 10 - 2 0 mmol/L [facility] AST With P-5'-P [Catalytic activity/Vol] 22 U/L 9 - 39 U/L [facility] Bilirubin [Mass/Vol] 0.8 mg/dL 0.0 - 1 .2 mg/dL [facility] Calcium [Mass/Vol] 8.9 mg/dL 8.6 - 10. 6 mg/dL [facility] Chloride [Moles/Vol] 106 mmol/L 98 - 10 7 mmol/L [facility] CO2 [Moles/Vol] 25 mmol/L 21 - 32 mmol/L [facility] Creatine [Mass/Vol] 0.95 mg/dL 0.50 - 1 .30 mg/dL [facility] GFR MALE 82 - PINF [facility] Comment on above: CALCULATIONS OF JACEY MATED GFR ARE PERFORMED USING THE 2020 CKD-EPI STUDY REFIT EQUATION WITHOUT THE RACE VARIABLE FOR THE IDMS-TRACEABLE CREATININE METHODS. https://jasn.asnjournals.org/content/early/ASN.83482 89128 Glucose [Mass/Vol] 110 mg/dL High 74 - 99 mg/dL [facility] Interpretation and review of laboratory results Abnormal [facility] Potassium [Moles/Vol] 3.9 mmol/L 3.5 - 5.3 mmol/L [facility] Protein [Mass/Vol] 6.2 g/dL Low 6.4 - 8.2 g/dL [facility] Sodium [Moles/Vol] 142 mmol/L 136 - 145 mmol/L [facility] Urea nitrogen [Mass/Vol] 21 mg/dL 6 - 23 mg/dL [facility] MAGNESIUMon 04-03-2023 Magnesium [Mass/Vol] 2.35 mg/dL Normal 1.60 - 2.40 [facility] Comment on above: Performed By: #### M G #### [facility] [address] [place] [address] Magnesiumon 04-03-2023 Magnesium [Mass/Vol] 2.35 mg/dL 1.60 - 2.40 mg/dL [facility] No Panel Informationon 04-03 [facility] Order Reconciliationon 04-03 Order Reconciliation Page 1 Discharge Reconciliation Document Reconciliation Type: Discharge requested on behalf of Jame Hernandez (Resident) done by Jame Hernandez (Resident)) Discharge - Reconciliation: 03-Apr-2023 11:11 by: Jame Hernandez (Resident)) Current OrdersDateHOME MEDICATIONS AT DISCHARGE DateReconciliation [...] MEDS TO BEDS, ADOD 04/03/2023, Location LT 5063 03-Apr-2023 11:08 Prescription is created for mirtazapine [...] BEDS, ADOD 04/03/2023, Location LT [address] [facility] Cardiac echo study Procedure on 04-02-2023 [facility], [address] [place] [address] and TRANSTHORACIC ECHOCARDIOGRAM REPORT Patient Name: ERIC Villa Physician: [id number] Jose C Carbajal MD Study Date: 04/02/2023 Referring DENISE NORIEGA Physician: MRN/PID: [id number] PCP: Accession/Order#: [id number] Department [place] [facility] Non Location: Invasive Date of : 1945 Fellow: Gender: M Nurse: Shraddha David RN Admit Date: 03/31/2023 Summer Clerk: DARREN Fish RDCS Admission Status: Inpatient - Additional Staff: Routine Height: 180.34 cm CC Report to: Weight: 99.79 kg Study Type: Echocardiogram BSA: 2.20 m2 Blood Pressure: 101 /64 mmHg Diagnosis/ICD: Q21.12-Patent foramen ovale Indication: PFO Procedure/CPT: Echo Complete w Full Doppler-62097 Patient History: Drug Allergies: None Pertinent History: [...] LA Area A2C: 24.0 cm2 LA Major Goree A4C: 6.0 cm LA Major Goree A2C: 6.0 cm RA VOLUME BY A/L METHOD: Normal Ranges: RA Vol A4C: 93.8 ml (8.3-19.5ml) RA Vol Index A4C: 42.7 ml/m2 RA Area A4C: 25.3 cm2 RA Major Goree A4C: 5.8 cm AORTA MEASUREMENTS: Normal Ranges: AoV Lizeth,s: 3.40 cm (1.4-2.6cm) Asc Ao, d: 3.40 cm (2.1-3.4cm) AORTIC VALVE: Naa (more content not included)... Jose C Page MD - 04/02/2023 [facility], [address] [place] [address] and TRANSTHORACIC ECHOCARDIOGRAM REPORT Patient Name: ERIC STEFANO Reading Physician: [id number] Jose C Carbajal MD Study Date: 04/02/2023 Referring DENISE NORIEGA Physician: MRN/PID: [id number] PCP: Accession/Order#: [id number] [facility] Non Location: Invasive Date of : 1945 Fellow: Gender: M Nurse: Shraddha David RN Admit Date: 03/31/2023 Summer Clerk: DARREN Fish RDCS Admission Status: Inpatient - Additional Staff: Routine Height: 180.34 cm CC Report to: Weight: 99.79 kg Study Type: Echocardiogram BSA: 2.20 m2 Blood Pressure: 101 /64 mmHg Diagnosis/ICD: Q21.12-Patent foramen ovale Indication: PFO Procedure/CPT: Echo Complete w Full Doppler-50474 Patient History: Drug Allergies: None Pertinent History: [...] LA Area A2C: 24.0 cm2 LA Major Goree A4C: 6.0 cm LA Major Goree A2C: 6.0 cm RA VOLUME BY A/L METHOD: Normal Ranges: RA Vol A4C: 93.8 ml (8.3-19.5ml) RA Vol Index A4C: 42.7 ml/m2 RA Area A4C: 25.3 cm2 RA Major Goree A4C: 5.8 cm AORTA MEASUREMENTS: Normal Ranges: [...] cm RV Ma (more content not included)... [facility] Work Phone: Cardiac echo study Procedure Ordered By: Jose C Carbajal on 04-02-2023 [facility] Work Phone: Clinical Event Note-Walking pulse oxon [...] 02-Apr-2023 11:29 by Natali Dunbar (CHECO) Normal [facility] Daily Progress Note-Cardiolo checoon 04-02-2023 Daily Progress Note-Cardiology Service: Cardiology Subjective [...] 95% Objective Data: Objective Information: T PRBPMAPSpO2 Value36.79127581/742786% Date/Time04/02 5: 5: 5: 5: 12: 5:05 [...] Beta 2 Glycoprotein Ab 01-Apr-2023 09:14:00 ResultValue Qspx-3-Gouedyjmaegy IgG Antibody <1.4 Dwhx-7-Ifaqklanbsog IgA Antibody 1.0 Jrvl-2-Yzhytspyivlk IgM Antibody 4.4 Anticardiolipin Ab 01-Apr-2023 09:14:00 ResultValue Anticardiolipin IgG, Serum <1.6 Anticardiolipin IgA, Serum 1.3 Anticardiolipin IgM, Serum 3.3 Brain Natriuretic Peptide Trending View Sacjwx42-Fje-6729 09:14:00 31-Mar-2023 11:05:00 Brain Natriuretic Nwvjvtd247 H 697 H Renal Function Panel Trending View Adcoxa59-Nzq-1192 04:11:00 31-Mar-2023 11:05:00 Glucose, Jyeqz589 H 108 H NA142 142 K3.8 4.7 CL109 H 105 Bicarbonate, Serum25 26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 COLOR YELLOW Normal YELLOW [facility] Comment on above: Order Comment: Crite marisol for reflexing a culture was not met. Please call the lab [id number] within 24 hours of collection time if culture is needed Performed By: #### 3 0965 ####[facility] [facility] [place] [address], [facility] EPIS OCC Normal FEW,OCC,NON E SEEN [facility] Comment on above: Order Comment: Crite marisol for reflexing a culture was not met. Please call the lab [id number] within 24 hours of collection time if culture is needed Performed By: #### 3 0965 ####[facility] [facility] [place] [address], [facility] GLUCOSE Negative Normal NEGATIVE [facility] Comment on above: Order Comment: Crite marisol for reflexing a culture was not met. Please call the lab [id number] within 24 hours of collection time if culture is needed Performed By: #### 3 0965 ####[facility] [place] [address], [facility] INR Coag RelTime (Bld) 0-2 Abnormal NONE SEEN [facility] Comment on above: Order Comment: Crite marisol for reflexing a culture was not met. Please call the lab [id number] within 24 hours of collection time if culture is needed Performed By: #### 3 0965 ####[facility] [facility] [place] [place] [address], [facility] KETONE Negative Normal NEGATIVE [facility] Comment on above: Order Comment: Crite marisol for reflexing a culture was not met. Please call the lab [id number] within 24 hours of collection time if culture is needed Performed By: #### 3 0965 ####[facility] [facility] [place] [place] [address], [facility] LEUK ANGELA Negative Normal NEGATIVE [facility] Comment on above: Order Comment: Crite marisol for reflexing a culture was not met. Please call the lab [id number] within 24 hours of collection time if culture is needed Performed By: #### 3 0965 ####[facility] [facility] [place] [address], [facility] MUCUS THREADS OCC Abnormal NONE SEEN [facility] Comment on above: Order Comment: Crite marisol for reflexing a culture was not met. Please call the lab [id number] within 24 hours of collection time if culture is needed Performed By: #### 3 0965 ####[facility] [facility] [place] [address], [facility] NITRITE Negative Normal NEGATIVE [facility] Comment on above: Order Comment: Crite marisol for reflexing a culture was not met. Please call the lab [phone] within 24 hours of collection time if culture is needed Performed By: #### 3 0965 ####[facility] [facility] [place] [address], [facility] PH 5.0 Normal 5.0-8.0 [facility] Comment on above: Order Comment: Crite marisol for reflexing a culture was not met. Please call the lab [phone] within 24 hours of collection time if culture is needed Performed By: #### 3 0965 ####[facility] [facility] [place] [address], [facility] Protein mass conc Negative Normal NEGATIVE [facility] Comment on above: Order Comment: Crite marisol for reflexing a culture was not met. Please call the lab [id number] within 24 hours of collection time if culture is needed Performed By: #### 3 0965 ####[facility] [facility].[address] Performed By: #### 3 1079 ####[facility] [facility].[address] SPEC GRAV 1.020 Normal 1.015-1.020 [facility] Comment on above: Order Comment: Crite marisol for reflexing a culture was not met. Please call the lab [id number] within 24 hours of collection time if culture is needed Performed By: #### 3 0965 ####[facility] [facility].[address] WBC UA NONE SEEN Normal NONE SEEN [facility] Comment on above: Order Comment: Crite marisol for reflexing a culture was not met. Please call the lab [phone] within 24 hours of collection time if culture is needed Performed By: #### 3 0965 ####[facility] [facility].[address] Vital Signs Date Time Vital Sign Value Performing Clinician Facility 11-30-2024 10:38-0400 Body height 180.3 cm Ophelia Rai MD Work Phone: [facility] 11-30-2024 10:38-0400 Body mass index (BMI) [Ratio] 30.6 kg/m2 Ophelia Rai MD Work Phone: [facility] 11-30-2024 10:38-0400 Body weight 99.52 kg Ophelia Rai MD Work Phone: [facility] 11-30-2024 10:38-0400 Diastolic blood pressure 74 mm[Hg] Ophelia Rai MD Work Phone: [facility] 11-30-2024 10:38-0400 Heart rate 73 /min Ophelia Rai MD Work Phone: [facility] 11-30-2024 10:38-0400 Respiratory rate 18 /min Ophelia Rai MD Work Phone: [facility] 11-30-2024 10:38-0400 Systolic blood pressure 116 mm[Hg] Ophelia Rai MD Work Phone: [facility] 02-17-2024 11:08-0400 Body height 180.3 cm Ophelia Rai MD Work Phone: [facility] 02-17-2024 11:08-0400 Body mass index (BMI) [Ratio] 29.43 kg/m2 Ophelia Rai MD Work Phone: [facility] 02-17-2024 11:08-0400 Body weight 95.71 kg Ophelia Rai MD Work Phone: [facility] 02-17-2024 11:08-0400 Diastolic blood pressure 76 mm[Hg] Ophelia Rai MD Work Phone: [facility] 02-17-2024 11:08-0400 Heart rate 72 /min Ophelia Rai MD Work Phone: [facility] 02-17-2024 11:08-0400 Respiratory rate 16 /min Ophelia Rai MD Work Phone: [facility] 02-17-2024 11:08-0400 Systolic blood pressure 154 mm[Hg] Ophelia Rai MD Work Phone: [facility] 06-03-2023 09:52-0500 Body height 180.[address] 06-03-2023 09:52-0500 Body mass index (BMI) [Ratio] 30.4 kg/m2 [address] 06-03-2023 09:52-0500 Body weight 98.[address] 06-03-2023 09:52-0500 Diastolic blood pressure 80 mm[Hg] [address] 06-03-2023 09:52-0500 Systolic blood pressure 128 mm[Hg] [address] 04-15-2023 12:00-0400 Diastolic blood pressure 75 mm[Hg] Ophelia Rai MD Work Phone: [facility] 04-15-2023 12:00-0400 Heart rate 93 /min Ophelia Rai MD Work Phone: [facility] 04-15-2023 12:00-0400 Systolic blood pressure 123 mm[Hg] Ophelia Rai MD Work Phone: [facility] 04-15-2023 11:59-0400 Body height 180.3 cm Ophelia Rai MD Work Phone: [facility] 04-15-2023 11:59-0400 Body mass index (BMI) [Ratio] 30.4 kg/m2 Ophelia Rai MD Work Phone: [facility] 04-15-2023 11:59-0400 Body weight 98.88 kg Ophelia Rai MD Work Phone: [facility] 04-15-2023 11:59-0400 Respiratory rate 16 /min Ophelia Rai MD Work Phone: [facility] 04-03-2023 13:22-0400 Body height 180.[address] [facility] 04-03-2023 13:22-0400 Body weight 98.[address] [facility] 04-03-2023 09:36-0400 Body temperature 96.8 [degF] Text Entry [facility] 04-03-2023 09:36-0400 Diastolic blood pressure 72 mm[Hg] Text Entry [facility] 04-03-2023 09:36-0400 Heart rate 55 /min Text Entry [facility] 04-03-2023 09:36-0400 Respiratory rate 20 /min Text Entry [facility] 04-03-2023 09:36-0400 Systolic blood pressure 115 mm[Hg] Text Entry [facility] 04-03-2023 05:54-0400 SaO2% (BldA) [Mass fraction] 94 % Text Entry [facility] 04-02-2023 07:39-0400 Body height 180.2 cm Zachary Montoya MD Work Phone: [facility] 04-02-2023 07:39-0400 Body mass index (BMI) [Ratio] 30.12 kg/m2 Zachary Montoya MD Work Phone: [facility] 04-02-2023 07:39-040 Body weight 97.8 kg Zachary Montoya MD Work Phone: [facility] Encounters Encounter Date Encounter Type Care Provider Facility Start: 11-30-2024 End: 11-30-2024 Office outpatient visit 25 minutes Ophelia Rai MD Work Phone: [facility] Comment on above: Acute pulmonary embo lism with acute cor pulmonale, unspecified pulmonary embolism type (Multi) (Primary Dx); Patent foramen ovale (HHS-HCC); Longstanding persistent atrial fibrillation (Multi) Start: 11-30-2024 End: 11-30-2024 ambulatory [facility] Start: 02-17-2024 End: 02-17-2024 ambulatory [facility] Start: 02-17-2024 End: 02-17-2024 Office outpatient visit 40 minutes Ophelia Rai MD Work Phone: [facility] Comment on above: Acute pulmonary embo lism with acute cor pulmonale, unspecified pulmonary embolism type (Multi) (Primary Dx); Patent foramen ovale (HHS-HCC); Acute deep vein thrombosis (DVT) of other specified vein of left lower extremity (Multi); Longstanding persistent atrial fibrillation (Multi) Start: 06-03-2023 End: 06-04-2023 ambulatory [facility] Start: 06-03-2023 End: 06-03-2023 Subsequent hospital visit by physician Mary Kay Hagan Echo/Vasc Room 2 Jose Luis Herrera Comment on above: Acute pulmonary embo lism with acute cor pulmonale, unspecified pulmonary embolism type (CMS/HCC) Start: 05-15-2023 End: 05-15-2023 Office outpatient visit 15 minutes Adeel Youngblood MD Work Phone: [facility] Comment on above: Longstanding persist ent atrial fibrillation (CMS/HCC) (Primary Dx); Other pulmonary embolism without acute cor pulmonale, unspecified chronicity (CMS/HCC) Start: 05-15-2023 End: 05-15-[address] [facility] Start: 04-15-2023 End: 04-15-2023 Office outpatient visit 40 minutes Ophelia Rai MD Work Phone: [facility] Comment on above: Acute pulmonary embo lism with acute cor pulmonale, unspecified pulmonary embolism type (CMS/HCC) (Primary Dx); Acute deep vein thrombosis (DVT) of other specified vein of left lower extremity (CMS/HCC); Patent foramen ovale Start: 03-31-2023 End: 04-03-2023 Evaluation and management of inpatient Bryan [facility] [id number] [id number] Start: 03-31-2023 End: 04-03-2023 Evaluation and management of inpatient Zachary Montoya MD Work Phone: [facility] Dung Valdes 5 Comment on above: Other pulmonary embo lism without acute cor pulmonale (CMS/HCC) (Primary Dx) Start: 05-01-2021 End: 05-02-2021 ambulatory WILLIE JUAREZ Facility: Start: 09-11-2020 End: 09-12-2020 ambulatory NONE LISTED REQUEST Facility: Start: 08-13-2020 End: 08-14-[address] NONE LISTED REQUEST Facility: Start: 06-21-2018 End: 06-22-2018 Patient encounter procedure MARC WHITFIELD Facility:[facility] Start: 06-10-2018 End: 06-11-2018 Patient encounter procedure MARC WHITFIELD Facility:[facility] Start: 05-30-2018 End: 05-31-2018 Patient encounter procedure SOFIA JONES Facility:[facility] Procedures Date Procedure Procedure Detail Performing Clinician Start: 06-03-2023 TRANSTHORACIC ECHO ( TTE) LIMITED AEDEL YOUNGBLOOD Start: 06-03-2023 Echo transthorc r-t 2d [...] Work Phone: Start: 04-01-2023 Renal function panel Ta sharla Cotton MD Work Phone: Start: 04-01-2023 Troponin [...] above: Performed By: #### T +S #### [facility] [address] [place] [address] Start: 03-31-2023 Heparin unfractionat ed [Units/volume] in [...] Work Phone: Start: 03-31-2023 Renal function panel Ta sharla Cotton MD Work Phone: Start: 03-31-2023 Troponin I.cardiac p angel - Serum or Plasma by High sensitivity method Kylee Cotton MD Work Phone: Start: 05-30-2018 TREAT SHOULDER DISLOCATION ROSIE MALONE Start: 05-30-2018 Antibody screen SOFIA CUETO Comment on above: Performed By: #### 6 [id number] ####[place] [address] Plan of Treatment Date Care Activity Detail Author Start: 04-29-2032 DTaP/Tdap/Td Vaccine s (3 - Td or Tdap) DTaP/Tdap/Td Vaccines (3 - Td or Tdap) [facility] Start: 03-06-2025 Influenza vaccination Influenz a Vaccine (Season Ended) [facility] Start: 03-06-2024 COVID-19 Vaccine ( season) COVID-19 Vaccine ( season) [facility] Start: 03-06-2024 Influenza vaccination Influenza Vacc ine (#1) [facility] Start: 08-19-2023 End: 08-19-2023 Patient encounter procedure 08/19/2023 10:40 AM EST Office Visit [facility] [address] [place] [address] [place] [address] [place], [place] [id number] [facility] Start: 06-03-2023 End: 06-03-2023 Patient encounter procedure 06/03/2023 9:45 AM EST Appointment [facility] [address] [facility] [address] [place] [address] [facility] Start: 05-12-2023 End: 05-12-2023 Patient encounter procedure 05/12/2023 2:00 PM EST Office Visit [facility] [address] [facility] [address] [place] [address] [place] [address] [place] [address] [facility] Start: 04-30-2023 End: 04-30-2023 Patient encounter procedure 04/30/2023 9:00 AM EDT Office Visit [facility] [address] [place] [address] Syeda Payton, [facility] [address] [place] [address] [facility] Start: 04-15-2023 End: 04-15-2023 Patient encounter procedure 04/15/2023 12:00 PM EDT Office Visit [facility] [address] [place] [address] [place] [address] [place] [address] [facility] Start: 04-02-2023 PFO (patent foramen ovale) PFO (patent foramen ovale) Date: 02-Apr-2023 [facility] Start: 04-01-2023 End: 04-01-2024 Perflutren Lipid Microsphere [...] line with 10 mL of Normal Saline. [facility] Comment on above: 1. Dilute 1.3 mL [...] line with 10 mL of Normal Saline. [facility] Comment on above: 1. Dilute 1.3 mL [...] 10 mL of Normal Saline. Start: 03-06-2023 COVID-19 Vaccine ( season) COVID-19 Vaccine ( season) [facility] Start: 03-06-2023 Influenza vaccination Influenza Vacc ine (#1) [facility] Start: 06-26-2021 COVID-19 Vaccine (4 - Moderna series) COVID-19 Vaccine (4 - Moderna series) [facility] Start: 01-31-2020 RSV High Risk: (Elde rly (60+) or Population) (1 - 1-dose 75+ series) RSV High Risk: (Elderly (60+) or Population) (1 - 1-dose 75+ series) [facility] Start: 11-16-2018 Pneumococcal Vaccine : 65+ Years (2 - PPSV23 or PCV20) Pneumococcal Vaccine: 65+ Years (2 - PPSV23 or PCV20) [facility] Start: 01-11-2018 Pneumococcal vaccination Pneum ococcal Vaccine (2 of 2 - PPSV23, PCV20, or PCV21) [facility] Start: 01-11-2018 Pneumococcal Vaccine : 65+ Years (2 - PPSV23 or PCV20) Pneumococcal Vaccine: 65+ Years (2 - PPSV23 or PCV20) [facility] Start: 01-11-2018 Pneumococcal Vaccine : 65+ Years (2 of 2 - PPSV23 or PCV20) Pneumococcal Vaccine: 65+ Years (2 of 2 - PPSV23 or PCV20) [facility] Start: 2005 RSV patient s and/or patients aged 60+ years (1 - 1-dose 60+ series) RSV patients and/or patients aged 60+ years (1 - 1-dose 60+ series) [facility] Start: 1995 Zoster Vaccines (1 of 2) Zoster Vacc abdulaziz (1 of 2) [facility] Start: 1963 Diabetes mellitus screening Diabetes Screening [facility] Start: 1963 Hepatitis C screening Hepatitis C Sc reening [facility] Start: 1945 Lipid panel Lipid Panel [facility] Start: 1945 Medicare Annual Well ness Visit Medicare Annual Wellness Visit (AWV) [facility] aPTT in Platelet poo r plasma by Coagulation assay aPTT Lab Timed As needed (Lab) until discontinued starting 04/04/2023 [facility] Service Area Work Phone: Comment on above: As needed (Lab) unti l discontinued starting 04/04/2023 Hemoglobin.gastroint jacey nal [Presence] in Stool --1st specimen Occult Blood, Stool Microbiology Timed As needed (Lab) until discontinued starting 04/04/2023 [facility] Work Phone: Comment on above: As needed (Lab) unti l discontinued starting 04/04/2023 Heparin unfractionat ed [Units/volume] in Platelet poor plasma by Chromogenic method Heparin Assay Lab Timed As needed (Lab) until discontinued starting 04/04/2023 [facility] Work Phone: Comment on above: As needed (Lab) unti l discontinued starting 04/04/2023 Prothrombin time (PT) Protime-IN R Lab Timed As needed (Lab) for 1 Occurrences starting 04/04/2023 [facility] Work Phone: Comment on above: As needed (Lab) for 1 Occurrences starting 04/04/2023 Urinalysis complete panel - Urine Urinalysis with Reflex Microscopic Lab Timed As needed (Lab) until discontinued starting 04/04/2023 [facility] Work Phone: Comment on above: As needed (Lab) unti l discontinued starting 04/04/2023 End: 04-04-2023 US Heart Transthoracic Transthoracic Echo (TTE) Complete Echocardiography STAT Once for 1 Occurrences starting 04/04/2023 until 04/04/2023 [facility] Service Area Work Phone: Comment on above: Once for 1 Occurrenc es starting 04/04/2023 until 04/04/2023 Immunizations Immunization Date Immunization Notes Care Provider Fa cili 05-19-2023 influenza virus vaccine, unspecified formulation Ophelia Rai MD Work Phone: [facility] Work Phone: 04-29-2022 tetanus toxoid, redu norma diphtheria toxoid, and acellular pertussis vaccine, adsorbed Ophelia Rai MD Work Phone: [facility] Work Phone: 11-16-2017 pneumococcal conjuga te vaccine, 13 valent Ophelia Rai MD Work Phone: [facility] Work Phone: 06-21-2014 hepatitis A and hepatitis B vaccine Ophelia Rai MD Work Phone: [facility] Work Phone: 06-21-2014 influenza, seasonal, injectable, preservative free Ophelia Rai MD Work Phone: [facility] Work Phone: 06-21-2014 influenza virus vaccine, unspecified formulation Zachary Montoya MD Work Phone: [facility] Work Phone: 07-27-2013 hepatitis A and hepatitis B vaccine Ophelia Rai MD Work Phone: [facility] Work Phone: 07-27-2013 influenza virus vaccine, unspecified formulation Ophelia Rai MD Work Phone: [facility] Work Phone: 06-28-2013 diphtheria, tetanus toxoids and acellular pertussis vaccine, unspecified formulation Ophelia Rai MD Work Phone: [facility] Work Phone: 06-28-2013 hepatitis A and hepatitis B vaccine Ophelia Rai MD Work Phone: [facility] Work Phone: 06-28-2013 meningococcal ACWY vaccine, unspecified formulation Ophelia Rai MD Work Phone: [facility] Work Phone: 03-07-2009 pneumococcal vaccine , unspecified formulation Ophelia Rai MD Work Phone: [facility] Work Phone: Payers Date Payer Category Payer Unknown [id number] 2021 Medicare ANTHEM MEDICARE ANTHEM MEDICARE ADVANTAGE [id number] 2021-Present [address] [place] [id number] 2021 Medicare (Managed Care) [facility] ADVANTAGE Member Subscriber Plan / Payer (Effective 2021-Present) Name: Estuardoantione Eric Relation to Subscriber: Self Name: Eric Agarwal Payer ID: [id number] (NAIC) Group ID: [id number] Type: Not on file Address: [address] [place] [id number] 2005 Unknown [id number] 2005 Medicare [id number] 2005 Unknown 1959 Self-pay 1945 Unknown [id number] 1945 Unknown [id number] 1945 Unknown [id number] 1945 Unknown [id number] 1945 Unknown [id number] 1945 Unknown [id number] 1945 Unknown [id number] 1945 Unknown [id number] Medicare [id number] Unknown [id number] Unknown [id number] Unknown [id number] Social History Date Type Detail Facility Tobacco smoking status NHIS Tobacco smoking consumption unknown [facility] Work Phone: Start: 1945 Sex Assigned At Not on file [facility] Work Phone: Start: 04-15-2023 End: 02-17-2024 Gender identity Not on file [facility] Work Phone: Start: 04-15-2023 Tobacco smoking status NHIS Never smoked tobacco [facility] Start: 04-15-2023 End: 02-17-2024 Tobacco use and exposure Smokeless tobacco non-user [facility] Work Phone: Start: 04-15-2023 End: 02-17-2024 History of Social function [facility] Work Phone: Start: 04-05-2023 End: 11-30-2024 Exposure to SARS-CoV-2 (event) Not sure [facility] Start: 02-17-2024 Tobacco smoking status NHIS Ex-smoker [facility] History of tobacco use Current smoker [facility] Work Phone: History of tobacco use Cigarette Smoker [facility] Work Phone: Functional Status Date Assessment Result Facility 11-30-2024 Patient Health [facility] ionnaire 2 item (PHQ-2) [Reported] [facility] 11-30-2024 [place] - 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 Clinical Notes 03-31-2023 to 11-30-2024 Ophelia Rai MD - 11/30/2024 10:40 AM EDTPatient InstructionsOphelia Rai MD - 02/17/2024 11:00 AM EDTPatient InstructionsAdeel Youngblood MD - 05/15/2023 2:00 PM ESTPatient Instructions Note Date & Type Note Facility 11-30-2024 History of Present illness Narrative OUTPATIENT FOLLOW-UP - VASCULAR MEDICINE DOS: 11/30/2024 Last seen: 02/17/2024 REQUESTING PHYSICIAN: Christopher Orosco (PCP) REASON FOR FOLLOW-UP: here for follow up submassive PE and afib on eliquis HISTORY OF PRESENT ILLNESS: 79 yo man here for follow up submassive PE and afib on eliquis. Reports being concerned about depression and his memory. No bleeding on the AC. Not using the med-alert bracelet. Reports not taking the remeron - does not know why but memory is terrible . Reports has PCP follow up planned in about a month Plan after last visit: discussed the need to up date age and gender cancer screening with the PCP - - this has not happened. PCP is in the [facility] clinic - does not think this has been addressed. . [facility]. Still using the O2 - at night. Did not follow up for the walk test etc. Reports uses the O2 9 pm - 8 am. This too has not been addressed. Discussed the need for [place] cardiology follow up for the large PFO. Did see cardiology - reports saw someone at [facility] but he was not alarmed about anything . Unclear if there is any additional follow up planned. From prev notes: hospital follow up submassive PE. Admitted to [facility] 03/31-04/03/2023. 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 On admission, tachy, RUKHSANA soft and desating to 88%. Admitted to MICU - required O2 escalation and transferred to [facility] MICU. PERT call initially no need for [...] morning. Denies bleeding related to the AC. REVIEW OF SYSTEMS: weight is stable No stroke or TIA sx No CP, chest pressure No cough, SOB No BRBPR, melena, hematuria No bleeding No edema, no calf pain PHYSICAL EXAMINATION: BP 116/74 (BP Location: Right arm, Patient Position: Sitting) Pulse 73 Resp 18 Ht 1.803 m (5' 11 ) Wt 99.5 kg (219 lb 6.4 oz) BMI 30.60 kg/m Gen: Appears well, NAD Chest: CTA CVS: irregular without murmur or gallop Ext: no edema, nontender Skin: good condition without wounds - dry Mood and affect appropriate ADDITIONAL DATA: Not wearing compression. Right calf:37.0cm Left calf: 38.5cm ASSESSMENT/PLAN: here for follow up submassive PE on eliquis - this was 03/2023 - clinically stable and doing OK. Has a fair number of loose ends still needing addressed from the initial admission. discussed the need to up date age and gender cancer screening with the PCP. PCP is in the [facility] - does not think this has been addressed. Ideally prostate and colon screening suggested. Still using the O2 - at night. Did not follow up for the walk test etc. The need for O2 at night has not been addressed. Walked today in the office - baseline O2 95% - stable with ambulation. +dyspnea with exertion. Thinks the O2 was started by but I am not clear on this. Discussed the need for [place] cardiology follow up for the large PFO. Did see cardiology - reports saw someone at [facility] but he was not alarmed about anything . Discussed the previous shunt physiology and the need to relook at this. Discussed this may impact the O2 at night. He is not concerned about his current QOL. Reports no CEJA etc. His biggest concern is depression and his memory. Not on the remeron. Unclear if he has had head CT or other evaluation for the memory at this point. Not interested in pursuing things that will not affect longevity. He has a lot of anxiety about coming to [place] for care. Discussed the compexities of care across the different systems. He will follow up locally though the [place] and can seem me as needed. From an anticoagulation perspective - eliquis planned indefinitely given the h/o afib. documented in this encounter [facility] Work Phone: 11-30-2024 Instructions Ophelia Rai MD - 11/30/2024 10:40 AM EDT ASSESSMENT/PLAN: here for follow up submassive PE on eliquis - this was 03/2023 - clinically stable and doing OK. Has a fair number of loose ends still needing addressed from the initial admission. discussed the need to up date age and gender cancer screening with the PCP. PCP is in the [facility] - does not think this has been addressed. Ideally prostate and colon screening suggested. Still using the O2 - at night. Did not follow up for the walk test etc. The need for O2 at night has not been addressed. Walked today in the office - baseline O2 95% - stable with ambulation. +dyspnea with exertion. Thinks the O2 was started by but I am not clear on this. Discussed the need for [place] cardi[place] follow up for the large PFO. Did see cardiology - reports saw someone at [facility] but he was not alarmed about anything . Discussed the need for [place] cardi[place] follow up for the large PFO. Did see cardiology - reports saw someone at [facility] but he was not alarmed about anything . Discussed the previous shunt physiology and the need to relook at this. Discussed this may impact the O2 at night. He is not concerned about his current QOL. Reports no CEJA etc. His biggest concern is depression and his memory. Not on the remeron. Unclear if he has had head CT or other evaluation for the memory at this point. Not interested in pursuing things that will not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
--- NOTE | 2025-02-05 16:00 | XR_ITS ---
The [place] [id number] Patient Name: ERIC LARA MRN: [id number] date: 1945 Sex: M Assigned Patient Location: ER Current Patient Location: ER Accession/Order Number: [id number] Exam Date: 02/05/2025 17:16 Report Date: 02/05/2025 17:17 At the request of: GALINA BUSTILLOS Procedure: XR hand LT min 3V XR hand LT min 3V 02/05/2025 4:38 PM SIGNS AND SYMPTOMS: ^pain in thumb area ^Y PROTOCOL: Frontal, lateral, and oblique radiographs of the left hand COMPARISON: None FINDINGS: There is significant narrowing of the interphalangeal joints and to a lesser extent the metacarpophalangeal joints. There is severe narrowing of the first carpometacarpal junction. There is a remote ulnar styloid fracture. No acute displaced fracture. No dislocation or subluxation. XR/XR hand LT min 3V IMPRESSION: No acute displaced fracture. Significant degenerative changes are noted throughout the interphalangeal joints, metacarpophalangeal joints, and first carpal metacarpal junction. There is a remote ulnar styloid fracture. Impression dictated by: Panfilo Solorzano M.D. 02/05/2025 5:17 PM Dictation Location: [place] [address] Electronically authenticated by: [id number] Y Date: 02/05/2025 17:17
--- NOTE | 2025-02-05 16:52 | ED.EXTPRO1 ---
HPI - Extremity Problem General Chief complaint: Extremity Problem, Nontraumatic Stated complaint: Extremity Injury, Upper Time Seen by Provider: 02/05/25 15:45 Source: patient Mode of arrival: walk-in Limitations: no limitations History of Present Illness HPI Narrative: 80-year-old male presents to the ED with left hand pain. He does have a contusion on the left thumb area and pain with movement. He denies any wrist or forearm pain he does not recall an injury. No redness or warmth. He states yesterday it felt normal. No numbness or tingling in the extremities. This is an isolated complaint he has no other complaints at this time. He has not done any treatments for his symptoms. MD Complaint: Reports extremity pain Onset (ago): day(s) Pain Consistency: Reports constant Location: Reports left and upper extremity Quality: Reports aching Radiation: Reports none Associated symptoms: Reports denies other symptoms Related Data Previous Rx's ?Medication ?Instructions ?Recorded diclofenac sodium 50 mg 50 mg PO Q12H #10 tabs 02/05/25 tablet,delayed release Allergies Allergy/AdvReac Type Severity Reaction Status Date / Time No Known Drug Allergies Allergy Verified 06/18/24 16:38 PFSH PFSH Social History Little interest or pleasure in doing things: not at all Feeling down, depressed, or hopeless: not at all Exam Constitutional Vital Signs, click to edit/add: Last Vital Signs Temp 98.1 F 02/05/25 15:32 Pulse 80 02/05/25 15:32 Resp 18 02/05/25 15:32 BP 133/70 02/05/25 15:32 Pulse Ox 97 02/05/25 15:32 O2 Del Method Room Air 02/05/25 15:32 Course Vital Signs Vital signs: Vital Signs Temperature 98.1 F 02/05/25 15:32 Pulse Rate 80 02/05/25 15:32 Respiratory Rate 18 02/05/25 15:32 Blood Pressure 133/70 02/05/25 15:32 Pulse Oximetry 97 02/05/25 15:32 Oxygen Delivery Method Room Air 02/05/25 15:32 Temperature 98.1 F 02/05/25 15:32 Pulse Rate 80 02/05/25 15:32 Respiratory Rate 18 02/05/25 15:32 Blood Pressure 133/70 02/05/25 15:32 Pulse Oximetry 97 02/05/25 15:32 Oxygen Delivery Method Room Air 02/05/25 15:32 MDM - Extremity (Nontraumatic) MDM Narrative Medical decision making narrative: 80-year-old male presents to the ED with left hand pain. He does have a contusion on the left thumb area and pain with movement. He denies any wrist or forearm pain he does not recall an injury. No redness or warmth. He states yesterday it felt normal. No numbness or tingling in the extremities. This is an isolated complaint he has no other complaints at this time. He has not done any treatments for his symptoms. Patient is alert and oriented no acute distress. He does have tenderness on abduction of the left thumb he is tender around the UCL around the thumb joint. He does have some ecchymosis on the dorsal aspect of the webspace between the thumb and index finger. No wrist tenderness no tenderness in the anatomical snuffbox. He has good range of motion otherwise. Good cap refill. X-ray was performed on patient and showed no acute process. He did have some chronic findings. I did discuss these with the patient. I offered the patient a splint and he stated I am just going to let this right out . I did offer the patient some anti-inflammatories. He is okay with this but states that he do not need that many. Patient was encouraged to follow-up with his PCP or orthopedist he can return with any worse or concerning symptoms. Patient will be discharged home in stable condition Differential Diagnosis Differential diagnosis: Likely other (Pain, strain, contusion, gamekeeper's thumb,) Discharge Plan Discharge Chief Complaint: Extremity Problem, Nontraumatic Clinical Impression: Left thumb sprain Patient Disposition: Home, Self-Care Time of Disposition Decision: 17:33 Condition: Good Prescriptions / Home Meds: New diclofenac sodium 50 mg tablet,delayed release (DR/EC) 50 mg PO Q12H Qty: 10 0RF Print Language: Micronesian Instructions: Skier's Thumb (ED) Referrals: Abad Mills DO [Physician, Orthopedics] - 1 week Referral Note: as needed CHRISTOPHER SULTANA [Primary Care Provider, Family Practice] - 1 week Discharge Date/Time: 02/05/25 17:41
== END 2025-02-05 17:41 | disposition home or self-care (01) ==
PROVIDERS: Emergency Provider Student in an Organized Health Care Education/Training Program; PCP Family Medicine
DX: S63.602A Unspecified sprain of left thumb, initial encounter (principal); X58.XXXA Exposure to other specified factors, initial encounter
CPT/HCPCS: 73130; 99283